=== PATIENT | female | born 1945 | race African-American/Black ===

== ENCOUNTER 2018-03-13 09:24 | Inpatient (IN) | payer MEDICARE, OTHER ==
[~2018-03-13] VITALS: Ht 170.2 cm; Wt 181.4 kg
--- NOTE | 2018-03-13 09:48 | PHYS DOC ---
Past Medical History Past Medical History: Diabetes-Type II Additional Past Medical Histor: Diabetic neuropathy, fibromyalgia, morbid obesity Past Surgical History: Cholecystectomy Smoking: Cigarettes (The patient is a nonsmoker.) Adult General HPI HPI Patient is a 72-year-old female, who presents to the emergency department via EMS. She states that last night she had some dark stools, and again this morning. She also reports some discomfort with urination. She states that she was seen by her PCPs office yesterday and started on an unknown antibiotic for urinary tract infection. She reports some generalized abdominal discomfort. She denies any chest pain or shortness of breath. She has chronic mobility issues secondary to morbid obesity, she also has a history of CHF. She denies any new shortness of breath or any new chest pain. She denies any dizziness or lightheadedness. She takes aspirin, but no other anticoagulants. There are no alleviating, or exacerbating factors to her symptoms. Review of Systems Review of Systems Constitutional: Denies fever or chills [] Eyes: Denies change in visual acuity, redness, or eye pain [] HENT: Denies nasal congestion or sore throat [] Respiratory: Denies cough or shortness of breath [] Cardiovascular: The patient denies any shortness of breath, chest pain, palpitations, or orthopnea [] GI: Denies nausea, vomiting, grossly bloody stools or diarrhea [] : Denies hematuria. Reports dysuria. [] Musculoskeletal: Denies any new back pain or new joint pain. [] Integument: Denies rash or skin lesions [] Neurologic: Denies headache, focal weakness or sensory changes [] Endocrine: Denies polyuria or polydipsia [] All other systems were reviewed and found to be within normal limits, except as documented in this note. Current Medications Current Medications Current Medications Medications (Trade) Dose Ordered Sig/Carin Start Time Stop Time Status Last Admin Dose Admin Magnesium Sulfate 50 ml @ 25 mls/hr 1X ONCE 03/13/18 12:00 03/13/18 13:59 DC Potassium Chloride/Water 50 ml @ 25 mls/hr Q2H 03/13/18 14:00 03/13/18 17:59 Potassium Chloride (Klor-Con) 40 meq 1X ONCE 03/13/18 12:00 03/13/18 12:03 DC Allergies Allergies Allergies Coded Allergies Type Severity Reaction Last Updated Verified Iodinated Contrast- Oral and IV Dye Allergy Intermediate 03/13/18 Yes Latex, Natural Rubber Allergy Intermediate ITCHING/REDNESS 03/13/18 Yes Physical Exam Physical Exam PHYSICAL EXAM: CONSTITUTIONAL: Well developed, well nourished HEAD: normocephalic, atraumatic EENT: PERRL, EOMI. Conjunctivae normal color, sclerae non-icteric; moist mucous membranes. NECK: Supple, non-tender; no meningismus. LUNGS: Lungs CTA, breathing even and unlabored. Normal air movement. HEART: Regular rate and rhythm, no murmur CHEST: No deformity; non-tender ABDOMEN: The abdomen is soft, there is diffuse tenderness to palpation to the upper abdomen. The lower abdomen is relatively nontender, normal bowel sounds are present. The exam is significantly limited secondary to patient's abdominal girth., no masses or bruits. EXTREM: Normal ROM; no deformity, no calf tenderness. Normal pulses palpable in all extremities. There is bilateral 2+ pitting pedal edema. SKIN: No rash; no diaphoresis NEURO: Alert; normal speech and cognition; CN's grossly intact; strength grossly intact without focal deficit. BACK: No CVA TTP. RECTAL EXAM: There is brown stool present in the rectal vault.. Current Patient Data Vital Signs Vital Signs Date Time Temp Pulse Resp B/P (MAP) Pulse Ox O2 Delivery O2 Flow Rate FiO2 03/13/18 09:24 98.3 65 15 123/71 (88) 99 Nasal Cannula 2.0 98.3 Lab Values Laboratory Tests Test 03/13/18 09:40 03/13/18 10:10 03/13/18 11:00 Stool Occult Blood Negative (NEG) Urine Collection Type U cath Urine Color Yellow Urine Clarity Clear Urine pH 7.0 Urine Specific [place] 1.010 Urine Protein Negative mg/dL (NEG-TRACE) Urine Glucose (UA) 100 mg/dL (NEG) Urine Ketones (Stick) Negative mg/dL (NEG) Urine Blood Negative (NEG) Urine Nitrite Negative (NEG) Urine Bilirubin Negative (NEG) Urine Urobilinogen Dipstick 0.2 mg/dL (0.2 mg/dL) Urine Leukocyte Esterase Negative (NEG) Urine RBC Rare /HPF (0-2) Urine WBC 1-4 /HPF (0-4) Urine Squamous Epithelial Cells Many /LPF Urine Renal Epithelial Cells Occ /LPF Urine Bacteria Many /HPF (0-FEW) Urine Mucus Slight /LPF White Blood Count 5.0 x10^3/uL (4.0-11.0) Red Blood Count 3.99 x10^6/uL (3.50-5.40) Hemoglobin 10.7 g/dL (12.0-15.5) L Hematocrit 33.0 % (36.0-47.0) L Mean Corpuscular Volume 83 fL (79-100) Mean Corpuscular Hemoglobin 27 pg (25-35) Mean Corpuscular Hemoglobin Concent 32 g/dL (31-37) Red Cell Distribution Width 16.8 % (11.5-14.5) H Platelet Count 231 x10^3/uL (140-400) Neutrophils (%) (Auto) 79 % (31-73) H Lymphocytes (%) (Auto) 13 % (24-48) L Monocytes (%) (Auto) 6 % (0-9) Eosinophils (%) (Auto) 1 % (0-3) Basophils (%) (Auto) 1 % (0-3) Neutrophils # (Auto) 4.0 x10^3uL (1.8-7.7) Lymphocytes # (Auto) 0.7 x10^3/uL (1.0-4.8) L Monocytes # (Auto) 0.3 x10^3/uL (0.0-1.1) Eosinophils # (Auto) 0.0 x10^3/uL (0.0-0.7) Basophils # (Auto) 0.0 x10^3/uL (0.0-0.2) Prothrombin Time 13.9 SEC (11.7-14.0) Prothrombin Time INR 1.1 (0.8-1.1) PTT 30 SEC (24-38) Sodium Level 140 mmol/L (136-145) Potassium Level 2.7 mmol/L (3.5-5.1) *L Chloride Level 98 mmol/L (98-107) Carbon Dioxide Level 35 mmol/L (21-32) H Anion Gap 7 (6-14) Blood Urea Nitrogen 9 mg/dL (7-20) Creatinine 1.2 mg/dL (0.6-1.0) H Estimated GFR (Cockcroft-Gault) 44.2 BUN/Creatinine Ratio 8 (6-20) Glucose Level 161 mg/dL (70-99) H Calcium Level 9.3 mg/dL (8.5-10.1) Magnesium Level 1.5 mg/dL (1.8-2.4) L Total Bilirubin 0.3 mg/dL (0.2-1.0) Aspartate Amino Transferase (AST) 26 U/L (15-37) Alanine Aminotransferase (ALT) 20 U/L (14-59) Alkaline Phosphatase 77 U/L (46-116) Creatine Kinase 1125 U/L (26-192) H Creatine Kinase MB (Mass) 2.6 ng/mL (0.0-3.6) Creatine Kinase MB Relative Index 0.2 % (0-4) Troponin I Quantitative < 0.017 ng/mL (0.000-0.055) CG-Bqd-R-Type Natriuretic Peptide 775 pg/mL (0-124) H Total Protein 8.5 g/dL (6.4-8.2) H Albumin 3.6 g/dL (3.4-5.0) Albumin/Globulin Ratio 0.7 (1.0-1.7) L Lipase 95 U/L (73-393) Laboratory Tests 03/13/18 11:00 Laboratory Tests 03/13/18 11:00 EKG EKG [Normal sinus rhythm at a rate of 73 bpm with occasional APCs, left axis deviation, normal intervals. There are no acute ischemic ST/T changes.] Radiology/Procedures Radiology/Procedures [PROCEDURE: PORTABLE CHEST 1V Exam: AP portable chest History: Congestive heart failure. Comparison: July 27, 2011. Findings: The heart and mediastinal structures are within normal limits for size. Lungs are without infiltrate. No pleural effusion or pneumothorax is identified. Mild bilateral shoulder degeneration is seen. Impression: 1. No acute cardiopulmonary process.] PROCEDURE: CT ABDOMEN PELVIS WO CONTRAST EXAM: CT Abdomen and Pelvis without IV contrast CLINICAL HISTORY: Abdominal pain COMPARISON: none TECHNIQUE: Helical CT of the abdomen and pelvis without intravenous contrast. Axial, coronal and sagittal reformatted images were generated. PQRS compliance statement - One or more of the following individualized dose reduction techniques were utilized for this study: 1. Automated exposure control 2. Adjustment of the mA and/or kV according to patient size 3. Use of iterative reconstruction technique FINDINGS: Lack of intravenous contrast limits evaluation of solid organs, vasculature, and lymph nodes. Streak artifact from the patient's arms results in limited evaluation of the abdomen and pelvis. Lower chest: Dependent opacities likely scarring/atelectasis. No pleural effusion or pneumothorax. Heart is not enlarged. No pericardial effusion. Abdomen and Pelvis: No focal liver lesion. Liver is enlarged measuring approximately 19.8 cm in length.Cholecystectomy clips are seen. No biliary ductal dilatation. Spleen is unremarkable. Adrenal glands are normal. Pancreas is unremarkable. There are 2 4 mm nonobstructing right interpolar renal calculi. No left renal calculi. No hydronephrosis. Mild colonic stool content. Appendix is normal. Colonic diverticula are seen most prominent within the sigmoid colon. No evidence for acute diverticulitis. No evidence for bowel obstruction. No abdominal or pelvic ascites. No abdominal or pelvic lymphadenopathy by size criteria, although several prominent external iliac chain lymph nodes are seen measuring up to 8 mm in short axis. The partially distended bladder is grossly unremarkable. Changes of rectus diastases are seen with fatty atrophy of the ventral abdominal muscles. Atherosclerotic calcifications of aorta are seen. Bones: Degenerative changes of the spine are seen. There is approximately 50% height loss of the T12 vertebral body, age-indeterminate. Prominent Schmorl's node is also seen in the superior endplate of T10. Severe disc height loss with endplate sclerosis and cystic change L4-5 and L5-S1. Vacuum phenomenon is seen at L4-5. SI joint degenerative changes are seen. IMPRESSION: 1. Nonobstructing right interpolar renal calculi measuring 4 mm. 2. 50% height loss of the T12 vertebral body, age-indeterminate compression fracture. 3. Multilevel degenerative changes of spine are partially profiled. 4. Prominent pelvic lymph nodes measuring up to 8 mm short axis, nonspecific. 5. Appendix is normal. 6. Hepatomegaly Course & Med Decision Making Course & Med Decision Making Pertinent Labs and Imaging studies reviewed. (See chart for details) [2:00 PM:The patient's condition remains stable. I spoke with the hospitalist , who accepted the patient to the hospital for further evaluation and treatment. ] [place] Disclaimer Dragon Disclaimer This electronic medical record was generated, in whole or in part, using a voice recognition dictation system. Departure Departure Impression: Primary Impression: Hypokalemia Additional Impressions: Abdominal pain Anemia Morbid obesity Disposition: 09 ADMITTED INPATIENT Admitting Physician: Fullbright, Armani Condition: STABLE Problem Qualifiers KIRAN KOEHLER MD Mar 13, 2018 09:48
--- NOTE | 2018-03-13 09:57 | EKG ---
[facility] [address] [place] [address] Test Date: 2018-03-13 Test Time: 09:31:36 Pat Name: DULCE OROSCO Department: Room: Gender: F Branch Examiner: : 1945 Requested By: KIRAN KOEHLER Order Number: [id number] Reading MD: Mariano Monson MD Measurements Intervals [place] Rate: 73 P: 46 ND: 158 QRS: -27 QRSD: 102 T: 142 QT: 480 QTc: 533 Interpretive Statements SINUS RHYTHM YOVANI-SEPTAL INFARCT POSSIBLE PAC'S. NON-SPECIFIC ST/T CHANGES Electronically Signed On 03-15-2018 9:40:19 CDT by Mariano Monson MD
[2018-03-13 10:25] LABS: FECAL OB PT NEGATIVE (NEG)
[2018-03-13 10:34] LABS: BILIRUBIN,URINE NEGATIVE (NEG); CLARITY,URINE CLEAR; COLOR,URINE YELLOW; NITRITE,URINE NEGATIVE (NEG); PROTEIN,URINE NEGATIVE (NEG-TRACE); UROBILINOGEN,URINE 0.2 mg/dL (0.2 mg/dL)
[2018-03-13 10:41] LABS: BACTERIA,URINE MANY /HPF (0-FEW); SQUAMOUS EPITHELIAL CELL,UR MANY /LPF
[2018-03-13 10:42] LABS: RBC,URINE RARE /HPF (0-2)
--- NOTE | 2018-03-13 11:20 | RAD ---
Exam: AP portable chest History: Congestive heart failure. Comparison: July 27, 2011. Findings: The heart and mediastinal structures are within normal limits for size. Lungs are without infiltrate. No pleural effusion or pneumothorax is identified. Mild bilateral shoulder degeneration is seen. Impression: 1. No acute cardiopulmonary process. Electronically signed by: Elton Awad MD (03/13/2018 11:16 AM) [facility]
[2018-03-13 11:21] LABS: BASO % 1 % (0-3); EOS % 1 % (0-3); HEMOGLOBIN 10.7 g/dL (12.0-15.5); LYMPH # 0.7 x10^3/uL (1.0-4.8); LYMPH % 13 % (24-48); MEAN CORPUSCULAR HEMOGLOBIN 27 pg (25-35); MEAN CORPUSCULAR HGB CONC 32 g/dL (31-37); MEAN CORPUSCULAR VOLUME 83 fL (79-100); MONO # 0.3 x10^3/uL (0.0-1.1); MONO % 6 % (0-9); NEUT % 79 % (31-73); PLATELET COUNT 231 x10^3/uL (140-400); RED BLOOD COUNT 3.99 x10^6/uL (3.50-5.40); RED CELL DISTRIBUTION WIDTH 16.8 % (11.5-14.5)
[2018-03-13 11:27] LABS: PROTHROMBIN TIME PATIENT 13.9 SEC (11.7-14.0)
[2018-03-13 11:30] LABS: ALBUMIN 3.6 g/dL (3.4-5.0); ALBUMIN/GLOBULIN RATIO 0.7 (1.0-1.7); CALCIUM 9.3 mg/dL (8.5-10.1); CREATININE 1.2 mg/dL (0.6-1.0); GFR 44.2; MAGNESIUM 1.5 mg/dL (1.8-2.4); TOTAL BILIRUBIN 0.3 mg/dL (0.2-1.0); TOTAL PROTEIN 8.5 g/dL (6.4-8.2)
[2018-03-13 11:34] LABS: POTASSIUM 2.7 mmol/L (3.5-5.1)
[2018-03-13] MEDS ORDERED: MAGNESIUM SULFATE 2GM 50 ML IV ONE (12:00)
[2018-03-13] MEDS ORDERED: POTASSIUM CHLORIDE 20 MEQ TABLET.ER. PO ONE (12:00)
--- NOTE | 2018-03-13 12:58 | RAD ---
EXAM: CT Abdomen and Pelvis without IV contrast CLINICAL HISTORY: Abdominal pain COMPARISON: none TECHNIQUE: Helical CT of the abdomen and pelvis without intravenous contrast. Axial, coronal and sagittal reformatted images were generated. PQRS compliance statement - One or more of the following individualized dose reduction techniques were utilized for this study: 1. Automated exposure control 2. Adjustment of the mA and/or kV according to patient size 3. Use of iterative reconstruction technique FINDINGS: Lack of intravenous contrast limits evaluation of solid organs, vasculature, and lymph nodes. Streak artifact from the patient's arms results in limited evaluation of the abdomen and pelvis. Lower chest: Dependent opacities likely scarring/atelectasis. No pleural effusion or pneumothorax. Heart is not enlarged. No pericardial effusion. Abdomen and Pelvis: No focal liver lesion. Liver is enlarged measuring approximately 19.8 cm in length.Cholecystectomy clips are seen. No biliary ductal dilatation. Spleen is unremarkable. Adrenal glands are normal. Pancreas is unremarkable. There are 2 4 mm nonobstructing right interpolar renal calculi. No left renal calculi. No hydronephrosis. Mild colonic stool content. Appendix is normal. Colonic diverticula are seen most prominent within the sigmoid colon. No evidence for acute diverticulitis. No evidence for bowel obstruction. No abdominal or pelvic ascites. No abdominal or pelvic lymphadenopathy by size criteria, although several prominent external iliac chain lymph nodes are seen measuring up to 8 mm in short axis. The partially distended bladder is grossly unremarkable. Changes of rectus diastases are seen with fatty atrophy of the ventral abdominal muscles. Atherosclerotic calcifications of aorta are seen. Bones: Degenerative changes of the spine are seen. There is approximately 50% height loss of the T12 vertebral body, age-indeterminate. Prominent Schmorl's node is also seen in the superior endplate of T10. Severe disc height loss with endplate sclerosis and cystic change L4-5 and L5-S1. Vacuum phenomenon is seen at L4-5. SI joint degenerative changes are seen. IMPRESSION: 1. Nonobstructing right interpolar renal calculi measuring 4 mm. 2. 50% height loss of the T12 vertebral body, age-indeterminate compression fracture. 3. Multilevel degenerative changes of spine are partially profiled. 4. Prominent pelvic lymph nodes measuring up to 8 mm short axis, nonspecific. 5. Appendix is normal. 6. Hepatomegaly Electronically signed by: Jay May MD (03/13/2018 12:32 PM) [facility]
[2018-03-13] MEDS ORDERED: FLUO20TA11 PO (15:49)
[2018-03-13] MEDS ORDERED: FURO40TA4 PO (15:49)
[2018-03-13] MEDS ORDERED: ALLO300T PO (15:49)
[2018-03-13] MEDS ORDERED: INSU100I11 SQ (15:49)
[2018-03-13] MEDS ORDERED: CARV25TA2 PO (15:49)
[2018-03-13] MEDS ORDERED: SULF1TAB24 PO (15:49)
[2018-03-13] MEDS ORDERED: AMLO10TA6 PO (15:49)
[2018-03-13] MEDS ORDERED: LIDOCAINE WITH 8.4% SOD BICARB 3 ML DISP.SYRIN. ONE (15:54)
[2018-03-13] MEDS ORDERED: LIDOCAINE WITH 8.4% SOD BICARB 3 ML DISP.SYRIN. INJ ONE (16:15)
[2018-03-13] MEDS ORDERED: INSU100V13 SQ (16:29)
[2018-03-13] MEDS ORDERED: ASPI81TA50 PO (16:29)
[2018-03-13] MEDS ORDERED: MAGN400C PO (16:29)
[2018-03-13] MEDS ORDERED: POTA20TA82 PO (16:29)
[2018-03-13] MEDS ORDERED: AMIT75TA PO (16:29)
--- NOTE | 2018-03-13 16:39 | PDOC1 ---
History and Physical Date of Admission Date of Admission DATE: 03/13/18 TIME: 16:39 Identification/Chief Complaint Chief Complaint seen in er 72-year-old female, via EMS. She states that last night she had some dark stools, and again this morning. discomfort with urination. She states that she was seen by her PCPs office yesterday and started on bactrim antibiotic for urinary tract infection. reports some generalized abdominal discomfort. She denies any chest pain or shortness of breath. no known hx PUD chronic mobility issues secondary to morbid obesity, she also has history of CHF. she has been quite weak, k in er is 2.7 Past Medical History Past Medical History Past Medical History: Diabetes-Type II Additional Past Medical Histor: Diabetic neuropathy, fibromyalgia, morbid obesity Past Surgical History: Cholecystectomy Smoking: Cigarettes family hx obesity GI: GERD Endocrine: Diabetes Past Surgical History Past Surgical History: Other Family History Family History: High Cholestrol, Hypertension Family History: Parent Social History Smoke: <1 pack per day ALCOHOL: none Drugs: None Current Problem List Problem List Problems Medical Problems: (1) Abdominal pain Status: Acute (2) Anemia Status: Acute (3) Hypokalemia Status: Acute (4) Morbid obesity Status: Acute Current Medications Current Medications Current Medications Magnesium Sulfate 50 ml @ 25 mls/hr 1X ONCE IV ; Start 03/13/18 at 12:00; Stop 03/13/18 at 13:59; Status DC Potassium Chloride (Klor-Con) 40 meq 1X ONCE PO Last administered on at 14:17; Start 03/13/18 at 12:00; Stop 03/13/18 at 12:03; Status DC Potassium Chloride/Water 50 ml @ 25 mls/hr Q2H IV ; Start 03/13/18 at 14:00; Stop 03/13/18 at 17:59 Lidocaine/Sodium Bicarbonate (Buffered Lidocaine 1%) 3 ml STK-MED ONCE .ROUTE ; Start 03/13/18 at 15:54; Stop 03/13/18 at 15:55; Status DC Lidocaine/Sodium Bicarbonate (Buffered Lidocaine 1%) 3 ml 1X ONCE INJ Last administered on 03/13/18at 16:15; Start 03/13/18 at 16:15; Stop 03/13/18 at 16 :17; Status DC Active Scripts Active Reported Potassium Chloride 20 Meq Tablet.er 20 Meq PO DAILY Magnesium (Magnesium Oxide) 400 Mg Capsule 1 Cap PO DAILY Amitriptyline Hcl 75 Mg Tablet 1 Tab PO QHS Levemir (Insulin Detemir) 100 Unit/1 Ml Vial 30 Unit SQ HS Aspir-Low (Aspirin) 81 Mg Tablet.dr 1 Tab PO DAILY Carvedilol 25 Mg Tablet 1 Tab PO BID Humalog (Insulin Lispro) 100 Unit/1 Ml Insuln.pen 10 Unit SQ TIDWMEALS Allopurinol 300 Mg Tablet 1 Tab PO DAILY Furosemide 40 Mg Tablet 1 Tab PO DAILY Fluoxetine Hcl 20 Mg Tablet 1 Tab PO DAILY Amlodipine Besylate 10 Mg Tablet 10 Mg PO DAILY Bactrim Ds Tablet (Sulfamethoxazole/Trimethoprim) 1 Each Tablet 1 Tab PO DAILY Allergies Allergies: Coded Allergies: Iodinated Contrast- Oral and IV Dye (Verified Allergy, Intermediate, 03/13) PATIENT DOES NOT REMEMBER WHAT REACTION SHE HAS. Latex, Natural Rubber (Verified Allergy, Intermediate, ITCHING/REDNESS, ) ROS Review of System Review of Systems Review of Systems Constitutional: Denies fever or chills [] Eyes: Denies change in visual acuity, redness, or eye pain [] HENT: Denies nasal congestion or sore throat [] Respiratory: Denies cough or shortness of breath [] Cardiovascular: The patient denies any shortness of breath, chest pain, palpitations, or orthopnea [] GI: black stool, no grossly bloody stools or diarrhea [] : Denies hematuria. Reports dysuria. [] Musculoskeletal: Denies any new back pain or new joint pain. [] Integument: Denies rash or skin lesions [] Neurologic: Denies headache, focal weakness or sensory changes [] Endocrine: Denies polyuria or polydipsia [] 14 pt systems were reviewed and found to be within normal limits, except as documented Musculoskeletal: Yes Pain In: (BACK) Physical Exam Physical Exam Physical Exam Physical Exam PHYSICAL EXAM: CONSTITUTIONAL: Well developed, well nourished HEAD: normocephalic, atraumatic EENT: PERRL, EOMI. Conjunctivae normal color, sclerae non-icteric; moist mucous membranes. NECK: Supple, non-tender; no meningismus. LUNGS: Lungs CTA, breathing even and unlabored. Normal air movement. HEART: Regular rate and rhythm, no murmur CHEST: No deformity; non-tender ABDOMEN: The abdomen is soft, there is diffuse tenderness to palpation to the upper abdomen. The lower abdomen is relatively nontender, normal bowel sounds are present. The exam is significantly limited secondary to patient's abdominal girth., no masses or bruits. EXTREM: Normal ROM; no deformity, no calf tenderness. Normal pulses palpable in all extremities. There is bilateral 2+ pitting pedal edema. SKIN: No rash; no diaphoresis NEURO: Alert; normal speech and cognition; CN's grossly intact; strength grossly intact without focal deficit. BACK: No CVA TTP. RECTAL EXAM: There is brown stool present in the rectal vault.. PQRS compliance statement - One or more of the following individualized dose reduction techniques were utilized for this study: 1. Automated exposure control 2. Adjustment of the mA and/or kV according to patient size 3. Use of iterative reconstruction technique FINDINGS: Lack of intravenous contrast limits evaluation of solid organs, vasculature, and lymph nodes. Streak artifact from the patient's arms results in limited evaluation of the abdomen and pelvis. Lower chest: Dependent opacities likely scarring/atelectasis. No pleural effusion or pneumothorax. Heart is not enlarged. No pericardial effusion. Abdomen and Pelvis: No focal liver lesion. Liver is enlarged measuring approximately 19.8 cm in length.Cholecystectomy clips are seen. No biliary ductal dilatation. Spleen is unremarkable. Adrenal glands are normal. Pancreas is unremarkable. There are 2 4 mm nonobstructing right interpolar renal calculi. No left renal calculi. No hydronephrosis. Mild colonic stool content. Appendix is normal. Colonic diverticula are seen most prominent within the sigmoid colon. No evidence for acute diverticulitis. No evidence for bowel obstruction. No abdominal or pelvic ascites. No abdominal or pelvic lymphadenopathy by size criteria, although several prominent external iliac chain lymph nodes are seen measuring up to 8 mm in short axis. The partially distended bladder is grossly unremarkable. Changes of rectus diastases are seen with fatty atrophy of the ventral abdominal muscles. Atherosclerotic calcifications of aorta are seen. Bones: Degenerative changes of the spine are seen. There is approximately 50% height loss of the T12 vertebral body, age-indeterminate. Prominent Schmorl's node is also seen in the superior endplate of T10. Severe disc height loss with endplate sclerosis and cystic change L4-5 and L5-S1. Vacuum phenomenon is seen at L4-5. SI joint degenerative changes are seen. IMPRESSION: 1. Nonobstructing right interpolar renal calculi measuring 4 mm. 2. 50% height loss of the T12 vertebral body, age-indeterminate compression fracture. 3. Multilevel degenerative changes of spine are partially profiled. 4. Prominent pelvic lymph nodes measuring up to 8 mm short axis, nonspecific. 5. Appendix is normal. 6. Hepatomegaly Electronically signed by: Jay May MD (03/13/2018 12:32 PM) [facility] General: Oriented X3, Cooperative, mild distress HEENT: Atraumatic, PERRLA Lungs: Clear to auscultation Heart: S1S2, no jug vein distention Breasts: Not examined Abdomen: Normal bowel sounds, Soft Rectal Exam: deferred PELVIC: Examination not indicated Extremities: No cyanosis Neuro: Normal speech, Normal tone, Cranial nerves 3-12 NL Psych/Mental Status: Mental status NL, Mood NL Vitals Vitals Vital Signs Date Time Temp Pulse Resp B/P (MAP) Pulse Ox O2 Delivery O2 Flow Rate FiO2 03/13/18 15:00 84 30 176/90 (118) 100 Nasal Cannula 2.0 03/13/18 09:24 98.3 98.3 Labs Labs Laboratory Tests Test 03/13/18 09:40 03/13/18 10:10 03/13/18 11:00 Stool Occult Blood Negative (NEG) Urine Collection Type U cath Urine Color Yellow Urine Clarity Clear Urine pH 7.0 Urine Specific [place] 1.010 Urine Protein Negative mg/dL (NEG-TRACE) Urine Glucose (UA) 100 mg/dL (NEG) Urine Ketones (Stick) Negative mg/dL (NEG) Urine Blood Negative (NEG) Urine Nitrite Negative (NEG) Urine Bilirubin Negative (NEG) Urine Urobilinogen Dipstick 0.2 mg/dL (0.2 mg/dL) Urine Leukocyte Esterase Negative (NEG) Urine RBC Rare /HPF (0-2) Urine WBC 1-4 /HPF (0-4) Urine Squamous Epithelial Cells Many /LPF Urine Renal Epithelial Cells Occ /LPF Urine Bacteria Many /HPF (0-FEW) Urine Mucus Slight /LPF White Blood Count 5.0 x10^3/uL (4.0-11.0) Red Blood Count 3.99 x10^6/uL (3.50-5.40) Hemoglobin 10.7 g/dL (12.0-15.5) Hematocrit 33.0 % (36.0-47.0) Mean Corpuscular Volume 83 fL (79-100) Mean Corpuscular Hemoglobin 27 pg (25-35) Mean Corpuscular Hemoglobin Concent 32 g/dL (31-37) Red Cell Distribution Width 16.8 % (11.5-14.5) Platelet Count 231 x10^3/uL (140-400) Neutrophils (%) (Auto) 79 % (31-73) Lymphocytes (%) (Auto) 13 % (24-48) Monocytes (%) (Auto) 6 % (0-9) Eosinophils (%) (Auto) 1 % (0-3) Basophils (%) (Auto) 1 % (0-3) Neutrophils # (Auto) 4.0 x10^3uL (1.8-7.7) Lymphocytes # (Auto) 0.7 x10^3/uL (1.0-4.8) Monocytes # (Auto) 0.3 x10^3/uL (0.0-1.1) Eosinophils # (Auto) 0.0 x10^3/uL (0.0-0.7) Basophils # (Auto) 0.0 x10^3/uL (0.0-0.2) Prothrombin Time 13.9 SEC (11.7-14.0) Prothromb Time International Ratio 1.1 (0.8-1.1) Activated Partial Thromboplast Time 30 SEC (24-38) Sodium Level 140 mmol/L (136-145) Potassium Level 2.7 mmol/L (3.5-5.1) Chloride Level 98 mmol/L (98-107) Carbon Dioxide Level 35 mmol/L (21-32) Anion Gap 7 (6-14) Blood Urea Nitrogen 9 mg/dL (7-20) Creatinine 1.2 mg/dL (0.6-1.0) Estimated GFR (Cockcroft-Gault) 44.2 BUN/Creatinine Ratio 8 (6-20) Glucose Level 161 mg/dL (70-99) Calcium Level 9.3 mg/dL (8.5-10.1) Magnesium Level 1.5 mg/dL (1.8-2.4) Total Bilirubin 0.3 mg/dL (0.2-1.0) Aspartate Amino Transf (AST/SGOT) 26 U/L (15-37) Alanine Aminotransferase (ALT/SGPT) 20 U/L (14-59) Alkaline Phosphatase 77 U/L (46-116) Creatine Kinase 1125 U/L (26-192) Creatine Kinase MB (Mass) 2.6 ng/mL (0.0-3.6) Creatine Kinase MB Relative Index 0.2 % (0-4) Troponin I Quantitative < 0.017 ng/mL (0.000-0.055) ZX-[id number]-I-Type Natriuretic Peptide 775 pg/mL (0-124) Total Protein 8.5 g/dL (6.4-8.2) Albumin 3.6 g/dL (3.4-5.0) Albumin/Globulin Ratio 0.7 (1.0-1.7) Lipase 95 U/L (73-393) Laboratory Tests Test 03/13/18 09:40 03/13/18 10:10 03/13/18 11:00 Stool Occult Blood Negative (NEG) Urine Collection Type U cath Urine Color Yellow Urine Clarity Clear Urine pH 7.0 Urine Specific [place] 1.010 Urine Protein Negative mg/dL (NEG-TRACE) Urine Glucose (UA) 100 mg/dL (NEG) Urine Ketones (Stick) Negative mg/dL (NEG) Urine Blood Negative (NEG) Urine Nitrite Negative (NEG) Urine Bilirubin Negative (NEG) Urine Urobilinogen Dipstick 0.2 mg/dL (0.2 mg/dL) Urine Leukocyte Esterase Negative (NEG) Urine RBC Rare /HPF (0-2) Urine WBC 1-4 /HPF (0-4) Urine Squamous Epithelial Cells Many /LPF Urine Renal Epithelial Cells Occ /LPF Urine Bacteria Many /HPF (0-FEW) Urine Mucus Slight /LPF White Blood Count 5.0 x10^3/uL (4.0-11.0) Red Blood Count 3.99 x10^6/uL (3.50-5.40) Hemoglobin 10.7 g/dL (12.0-15.5) Hematocrit 33.0 % (36.0-47.0) Mean Corpuscular Volume 83 fL (79-100) Mean Corpuscular Hemoglobin 27 pg (25-35) Mean Corpuscular Hemoglobin Concent 32 g/dL (31-37) Red Cell Distribution Width 16.8 % (11.5-14.5) Platelet Count 231 x10^3/uL (140-400) Neutrophils (%) (Auto) 79 % (31-73) Lymphocytes (%) (Auto) 13 % (24-48) Monocytes (%) (Auto) 6 % (0-9) Eosinophils (%) (Auto) 1 % (0-3) Basophils (%) (Auto) 1 % (0-3) Neutrophils # (Auto) 4.0 x10^3uL (1.8-7.7) Lymphocytes # (Auto) 0.7 x10^3/uL (1.0-4.8) Monocytes # (Auto) 0.3 x10^3/uL (0.0-1.1) Eosinophils # (Auto) 0.0 x10^3/uL (0.0-0.7) Basophils # (Auto) 0.0 x10^3/uL (0.0-0.2) Prothrombin Time 13.9 SEC (11.7-14.0) Prothromb Time International Ratio 1.1 (0.8-1.1) Activated Partial Thromboplast Time 30 SEC (24-38) Sodium Level 140 mmol/L (136-145) Potassium Level 2.7 mmol/L (3.5-5.1) Chloride Level 98 mmol/L (98-107) Carbon Dioxide Level 35 mmol/L (21-32) Anion Gap 7 (6-14) Blood Urea Nitrogen 9 mg/dL (7-20) Creatinine 1.2 mg/dL (0.6-1.0) Estimated GFR (Cockcroft-Gault) 44.2 BUN/Creatinine Ratio 8 (6-20) Glucose Level 161 mg/dL (70-99) Calcium Level 9.3 mg/dL (8.5-10.1) Magnesium Level 1.5 mg/dL (1.8-2.4) Total Bilirubin 0.3 mg/dL (0.2-1.0) Aspartate Amino Transf (AST/SGOT) 26 U/L (15-37) Alanine Aminotransferase (ALT/SGPT) 20 U/L (14-59) Alkaline Phosphatase 77 U/L (46-116) Creatine Kinase 1125 U/L (26-192) Creatine Kinase MB (Mass) 2.6 ng/mL (0.0-3.6) Creatine Kinase MB Relative Index 0.2 % (0-4) Troponin I Quantitative < 0.017 ng/mL (0.000-0.055) KC-Ytr-N-Type Natriuretic Peptide 775 pg/mL (0-124) Total Protein 8.5 g/dL (6.4-8.2) Albumin 3.6 g/dL (3.4-5.0) Albumin/Globulin Ratio 0.7 (1.0-1.7) Lipase 95 U/L (73-393) VTE Prophylaxis Ordered VTE Prophylaxis Devices: Yes VTE Pharmacological Prophylaxi: Yes Assessment/Plan Assessment/Plan IMPRESSION 1. EPIGASTRIC PAIN WITH DARK STOOLS 2. PUD SUSPECTED 3. UTI ON BACTRIM 4. MARKED HYPOKALEMIA 5. 50% height loss of the T12 vertebral body, age-indeterminate compression fracture. PLAN 1. NPO P MN 2.CONSULT GI 3. IV PROTONIX 4. SCD'S 5. IV K 6. FREQUENT LAB 7. CONSULT DR CINTRON 8. SQ LOVENOX DVT PROPHYLAXIS JEFFERSON VORA MD Mar 13, 2018 16:39
[2018-03-13 18:20] VITALS: BP 150/81
[2018-03-13 19:00] VITALS: BP 143/77
[2018-03-13] MEDS: CARVEDILOL 12.5 MG TABLET. PO SCH (19:30)
[2018-03-13] MEDS: HYDROcodone/APAP 5/325MG 1 TAB TABLET PO PRN (19:31)
[2018-03-13] MEDS: POTASSIUM CHLORIDE 20MEQ 50 ML IV SCH ×2 (19:38→22:03)
[2018-03-13] MEDS ORDERED: AMITRIPTYLINE HCL 25 MG TABLET. PO SCH (21:00)
[2018-03-13] MEDS: INSULIN GLARGINE 300 UNITS/3 ML INSULN.PEN. SQ SCH (22:39)
[2018-03-13 23:00] VITALS: BP 140/81
[2018-03-14] MEDS: HYDROcodone/APAP 5/325MG 1 TAB TABLET PO PRN ×5 (00:06→22:35)
[2018-03-14 03:00] VITALS: BP 128/81
[2018-03-14 06:45] LABS: BASO % 1 % (0-3); EOS # 0.1 x10^3/uL (0.0-0.7); EOS % 2 % (0-3); HEMATOCRIT 30.4 % (36.0-47.0); HEMOGLOBIN 10.3 g/dL (12.0-15.5); LYMPH % 22 % (24-48); MEAN CORPUSCULAR HEMOGLOBIN 28 pg (25-35); MEAN CORPUSCULAR HGB CONC 34 g/dL (31-37); MEAN CORPUSCULAR VOLUME 83 fL (79-100); MONO # 0.3 x10^3/uL (0.0-1.1); MONO % 7 % (0-9); NEUT # 3.1 x10^3uL (1.8-7.7); NEUT % 68 % (31-73); PLATELET COUNT 185 x10^3/uL (140-400); RED BLOOD COUNT 3.66 x10^6/uL (3.50-5.40); RED CELL DISTRIBUTION WIDTH 17.2 % (11.5-14.5); WHITE BLOOD COUNT 4.6 x10^3/uL (4.0-11.0)
[2018-03-14 07:00] VITALS: BP 150/85
[2018-03-14 07:14] LABS: ALBUMIN 3.1 g/dL (3.4-5.0); ALBUMIN/GLOBULIN RATIO 0.7 (1.0-1.7); CALCIUM 8.8 mg/dL (8.5-10.1); CREATININE 1.1 mg/dL (0.6-1.0); GFR 59.1; POTASSIUM 3.3 mmol/L (3.5-5.1); TOTAL BILIRUBIN 0.4 mg/dL (0.2-1.0); TOTAL PROTEIN 7.8 g/dL (6.4-8.2)
[2018-03-14] MEDS ORDERED: PANTOPRAZOLE IV PUSH 40 MG VIAL. IVP SCH (07:30)
[2018-03-14] MEDS: INSULIN LISPRO 300 UNITS/3 ML INSULN.PEN. SQ SCH ×3 (08:00→18:05)
[2018-03-14] MEDS: FUROSEMIDE 40 MG TABLET. PO SCH (09:00)
[2018-03-14] MEDS ORDERED: ALLOPURINOL 300 MG TABLET. PO SCH (09:00)
--- NOTE | 2018-03-14 09:04 | RAD ---
Procedure: Upper extremity PICC line placement Clinical Indication: 72-year-old requiring central venous access Sedation: Local anesthesia only was provided Antibiotics: None Fluoro Time: 0.4 minutes. Images: 1 Contrast: None Sterility: All elements of maximal sterile barrier technique including the use of a cap, mask, sterile gown, sterile gloves, large sterile sheet, appropriate hand hygiene, and 2% chlorhexidine for cutaneous antisepsis (or acceptable alternative antiseptic per current guidelines) were followed for this procedure. Consent: The procedure was explained in its entirety to the patient or the patients designated national sales representative by a member of the treatment team, including a discussion of the risks, benefits and commonly accepted alternatives to the procedure, as well as the expected consequences of no therapy whatsoever. Discussion of the risks included, but was not limited to, those that are most frequent and those that are rare but possibly severe or life-threatening, as well as the possibility of unforeseen complications. Technique and Findings: Following informed consent, the patient was prepped and draped in the usual sterile fashion. Ultrasound interrogation of the right arm revealed patency and compressibility of right basilic vein. A hard copy ultrasound image was recorded. 1% Lidocaine was used to achieve local anesthesia and a 21-gauge micropuncture needle was used to gain access to the targeted vein. The needle was exchanged over wire for a 5 [place] peel-away sheath which was used to deploy a PICC line under fluoroscopic guidance such that the distal tip resided at the cavoatrial junction. The catheter flushed and aspirated with ease and was sutured to the skin. Complications: No immediate Impression: 1. Ultrasound guided PICC line placement as described.
--- NOTE | 2018-03-14 09:09 | PDOC2 ---
GI CONSULT Reason For Consult: Abd pain, anemia HPI: HPI: 72 y/o female admitted through ER. Reports onset of loose black stools yesterday. She lives at home and she typically asks her aide to tell her what her stools look like. Associated w/ "head to toe" fibromyalgia pain (which might include some abdominal discomfort/"itching" around cholecystectomy scar) and some "anal canal" pain related to increased frequency of stools. H/o GERD improved w/ Tums PRN. Remote h/o "ulcer" - can't tell me how this was diagnosed but says she had an EGD at some w/ Dr. Brasher "to recheck it." Denies dysphagia. Some nausea w/o vomiting and decreased appetite for a few days. Started on an antibiotic for UTI earlier this week - that day she had appointments all day and didn't eat so she wouldn't have to use a public restroom. Has issues w/ urinary incontinence. Also, was constipated a couple weeks ago and used "the whole bit" - enemas, Miralax, stool softeners - since then has had "a little" trouble with incontinence of stool. Hard to say, but it seems her bowel pattern is irregular as a rule - "whenever, wherever." She attributes this in part to h/o cholecystectomy and dentition issues. Denies hematochezia. H/o C Diff x 2. Takes a multivitamin which she assumes contains iron. Takes ASA 81mg QD. I believe also uses hydrocodone for chronic pain related to arthritis and gout. Denies Pepto and NSAIDs. H/o IDDM - mentions glucose is sometimes in the 300s. Office records: EGD in 01/2004 for abdominal pain, pill dysphagia, nausea, GERD, and anemia by Dr. Florence was normal except for hiatal hernia. Empiric esophageal dilation was performed. CHONG test was positive for H. pylori - unclear if was treated due to insurance issues. Colonoscopy in 03/[address] Florence for anemia was normal except for internal hemorrhoids. Notes indicate h/o irregular bowel pattern and abd pain. Labs include Hgb 10.7 (now 10.3), RDW 17.2, fecal occult negative, normal plt and INR, BUN 6, and CK 1125. No past labs fro comparison. CT noted mild hepatomegaly, mild stool content, and diverticulosis. Kept NPO on IV PPI. PMH: PMH: HTN, CHF, asthma, SHANITA (no CPAP), GERD, hiatal hernia, diverticulosis, hemorrhoids, C Diff, uterine cancer, RA, OA, fibromyalgia, gout, nephrolithiasis , UTI, compression fracture cholecystectomy, tubal ligation, total hysterectomy w/ BSO, cataract removal FH: Family History: CVA, DM, Hypertension Social History: Smoke: Quit ALCOHOL: none Drugs: None ROS: GEN: Denies fevers, chills, sweats HEENT: Denies blurred vision, sore throat CV: Denies chest pain RESP: Denies shortness of air, cough GI: Per HPI : +urinary incontinence +recent UTI ENDO: Denies weight changes NEURO: Denies confusion, dizziness MSK: +chronic pain SKIN: Denies jaundice, pruritus Vitals: Vitals: Vital Signs Date Time Temp Pulse Resp B/P (MAP) Pulse Ox O2 Delivery O2 Flow Rate FiO2 03/14/18 08:33 Nasal Cannula 2.5 03/14/18 07:00 97.4 73 20 150/85 (106) 100 97.4 Labs: Labs: Laboratory Tests Test 03/13/18 09:40 03/13/18 10:10 03/13/18 11:00 03/13/18 22:15 Stool Occult Blood Negative (NEG) Urine Collection Type U cath Urine Color Yellow Urine Clarity Clear Urine pH 7.0 Urine Specific Horatio 1.010 Urine Protein Negative mg/dL (NEG-TRACE) Urine Glucose (UA) 100 mg/dL (NEG) Urine Ketones (Stick) Negative mg/dL (NEG) Urine Blood Negative (NEG) Urine Nitrite Negative (NEG) Urine Bilirubin Negative (NEG) Urine Urobilinogen Dipstick 0.2 mg/dL (0.2 mg/dL) Urine Leukocyte Esterase Negative (NEG) Urine RBC Rare /HPF (0-2) Urine WBC 1-4 /HPF (0-4) Urine Squamous Epithelial Cells Many /LPF Urine Renal Epithelial Cells Occ /LPF Urine Bacteria Many /HPF (0-FEW) Urine Mucus Slight /LPF White Blood Count 5.0 x10^3/uL (4.0-11.0) Red Blood Count 3.99 x10^6/uL (3.50-5.40) Hemoglobin 10.7 g/dL (12.0-15.5) Hematocrit 33.0 % (36.0-47.0) Mean Corpuscular Volume 83 fL (79-100) Mean Corpuscular Hemoglobin 27 pg (25-35) Mean Corpuscular Hemoglobin Concent 32 g/dL (31-37) Red Cell Distribution Width 16.8 % (11.5-14.5) Platelet Count 231 x10^3/uL (140-400) Neutrophils (%) (Auto) 79 % (31-73) Lymphocytes (%) (Auto) 13 % (24-48) Monocytes (%) (Auto) 6 % (0-9) Eosinophils (%) (Auto) 1 % (0-3) Basophils (%) (Auto) 1 % (0-3) Neutrophils # (Auto) 4.0 x10^3uL (1.8-7.7) Lymphocytes # (Auto) 0.7 x10^3/uL (1.0-4.8) Monocytes # (Auto) 0.3 x10^3/uL (0.0-1.1) Eosinophils # (Auto) 0.0 x10^3/uL (0.0-0.7) Basophils # (Auto) 0.0 x10^3/uL (0.0-0.2) Prothrombin Time 13.9 SEC (11.7-14.0) Prothromb Time International Ratio 1.1 (0.8-1.1) Activated Partial Thromboplast Time 30 SEC (24-38) Sodium Level 140 mmol/L (136-145) Potassium Level 2.7 mmol/L (3.5-5.1) Chloride Level 98 mmol/L (98-107) Carbon Dioxide Level 35 mmol/L (21-32) Anion Gap 7 (6-14) Blood Urea Nitrogen 9 mg/dL (7-20) Creatinine 1.2 mg/dL (0.6-1.0) Estimated GFR (Cockcroft-Gault) 44.2 BUN/Creatinine Ratio 8 (6-20) Glucose Level 161 mg/dL (70-99) Calcium Level 9.3 mg/dL (8.5-10.1) Magnesium Level 1.5 mg/dL (1.8-2.4) Total Bilirubin 0.3 mg/dL (0.2-1.0) Aspartate Amino Transf (AST/SGOT) 26 U/L (15-37) Alanine Aminotransferase (ALT/SGPT) 20 U/L (14-59) Alkaline Phosphatase 77 U/L (46-116) Creatine Kinase 1125 U/L (26-192) Creatine Kinase MB (Mass) 2.6 ng/mL (0.0-3.6) Creatine Kinase MB Relative Index 0.2 % (0-4) Troponin I Quantitative < 0.017 ng/mL (0.000-0.055) WJ-Dya-D-Type Natriuretic Peptide 775 pg/mL (0-124) Total Protein 8.5 g/dL (6.4-8.2) Albumin 3.6 g/dL (3.4-5.0) Albumin/Globulin Ratio 0.7 (1.0-1.7) Lipase 95 U/L (73-393) Free Thyroxine 1.04 ng/dL (0.76-1.46) Glucose (Fingerstick) 216 mg/dL (70-99) Test 03/14/18 06:25 03/14/18 07:36 White Blood Count 4.6 x10^3/uL (4.0-11.0) Red Blood Count 3.66 x10^6/uL (3.50-5.40) Hemoglobin 10.3 g/dL (12.0-15.5) Hematocrit 30.4 % (36.0-47.0) Mean Corpuscular Volume 83 fL (79-100) Mean Corpuscular Hemoglobin 28 pg (25-35) Mean Corpuscular Hemoglobin Concent 34 g/dL (31-37) Red Cell Distribution Width 17.2 % (11.5-14.5) Platelet Count 185 x10^3/uL (140-400) Neutrophils (%) (Auto) 68 % (31-73) Lymphocytes (%) (Auto) 22 % (24-48) Monocytes (%) (Auto) 7 % (0-9) Eosinophils (%) (Auto) 2 % (0-3) Basophils (%) (Auto) 1 % (0-3) Neutrophils # (Auto) 3.1 x10^3uL (1.8-7.7) Lymphocytes # (Auto) 1.0 x10^3/uL (1.0-4.8) Monocytes # (Auto) 0.3 x10^3/uL (0.0-1.1) Eosinophils # (Auto) 0.1 x10^3/uL (0.0-0.7) Basophils # (Auto) 0.0 x10^3/uL (0.0-0.2) Sodium Level 139 mmol/L (136-145) Potassium Level 3.3 mmol/L (3.5-5.1) Chloride Level 99 mmol/L (98-107) Carbon Dioxide Level 34 mmol/L (21-32) Anion Gap 6 (6-14) Blood Urea Nitrogen 6 mg/dL (7-20) Creatinine 1.1 mg/dL (0.6-1.0) Estimated GFR (Cockcroft-Gault) 59.1 BUN/Creatinine Ratio 5 (6-20) Glucose Level 170 mg/dL (70-99) Calcium Level 8.8 mg/dL (8.5-10.1) Total Bilirubin 0.4 mg/dL (0.2-1.0) Aspartate Amino Transf (AST/SGOT) 28 U/L (15-37) Alanine Aminotransferase (ALT/SGPT) 17 U/L (14-59) Alkaline Phosphatase 67 U/L (46-116) Creatine Kinase 1092 U/L (26-192) Total Protein 7.8 g/dL (6.4-8.2) Albumin 3.1 g/dL (3.4-5.0) Albumin/Globulin Ratio 0.7 (1.0-1.7) Glucose (Fingerstick) 170 mg/dL (70-99) Allergies: Coded Allergies: Iodinated Contrast- Oral and IV Dye (Verified Allergy, Intermediate, 03/13) PATIENT DOES NOT REMEMBER WHAT REACTION SHE HAS. Latex, Natural Rubber (Verified Allergy, Intermediate, ITCHING/REDNESS, ) Medications: Current Medications Medications (Trade) Dose Ordered Sig/Carin Route PRN Reason Start Time Stop Time Status Last Admin Dose Admin Magnesium Sulfate 50 ml @ 25 mls/hr 1X ONCE IV 03/13/18 12:00 03/13/18 13:59 DC 03/13/18 22:40 Potassium Chloride (Klor-Con) 40 meq 1X ONCE PO 03/13/18 12:00 03/13/18 12:03 DC 03/13/18 14:17 Potassium Chloride/Water 50 ml @ 25 mls/hr Q2H IV 03/13/18 14:00 03/13/18 17:59 DC 03/13/18 22:03 Lidocaine/Sodium Bicarbonate (Buffered Lidocaine 1%) 3 ml 1X ONCE INJ 03/13/18 16:15 03/13/18 16:17 DC 03/13/18 16:15 Carvedilol (Coreg) 25 mg BIDWMEALS PO 03/13/18 19:30 03/13/18 19:30 Insulin Glargine (Lantus) 30 units QHS SQ 03/13/18 21:00 03/13/18 22:39 Acetaminophen/ Hydrocodone Bitart (Lortab 5/325) 1 tab PRN Q4HRS PRN PO PAIN 03/13/18 19:15 03/14/18 08:33 Pantoprazole Sodium (PROTONIX VIAL for IV PUSH) 40 mg DAILYAC IVP 03/14/18 07:30 03/14/18 08:34 Imaging: Imaging: CXR Impression: 1. No acute cardiopulmonary process. CT A/P w/o contrast Lower chest: Dependent opacities likely scarring/atelectasis. No pleural effusion or pneumothorax. Heart is not enlarged. No pericardial effusion. Abdomen and Pelvis: No focal liver lesion. Liver is enlarged measuring approximately 19.8 cm in length.Cholecystectomy clips are seen. No biliary ductal dilatation. Spleen is unremarkable. Adrenal glands are normal. Pancreas is unremarkable. There are 2 4 mm nonobstructing right interpolar renal calculi. No left renal calculi. No hydronephrosis. Mild colonic stool content. Appendix is normal. Colonic diverticula are seen most prominent within the sigmoid colon. No evidence for acute diverticulitis. No evidence for bowel obstruction. No abdominal or pelvic ascites. No abdominal or pelvic lymphadenopathy by size criteria, although several prominent external iliac chain lymph nodes are seen measuring up to 8 mm in short axis. The partially distended bladder is grossly unremarkable. Changes of rectus diastases are seen with fatty atrophy of the ventral abdominal muscles. Atherosclerotic calcifications of aorta are seen. Bones: Degenerative changes of the spine are seen. There is approximately 50% height loss of the T12 vertebral body, age-indeterminate. Prominent Schmorl's node is also seen in the superior endplate of T10. Severe disc height loss with endplate sclerosis and cystic change L4-5 and L5-S1. Vacuum phenomenon is seen at L4-5. SI joint degenerative changes are seen. IMPRESSION: 1. Nonobstructing right interpolar renal calculi measuring 4 mm. 2. 50% height loss of the T12 vertebral body, age-indeterminate compression fracture. 3. Multilevel degenerative changes of spine are partially profiled. 4. Prominent pelvic lymph nodes measuring up to 8 mm short axis, nonspecific. 5. Appendix is normal. 6. Hepatomegaly PE: GEN: NAD, morbidly obese HEENT: Atraumatic, PERRL LUNGS: diminished, NC HEART: RRR ABD: difficult with obesity - soft, does not seem tender, BS+ EXTREMITY: BLE edema SKIN: towels tucked under pannus NEURO/PSYCH: A & O 3 A/P: A/P: Black stools, decreased appetite, nausea, ?abd pain Anemia, fecal occult negative -records suggest h/o anemia GERD -on Tums PRN - was + H. pylori on EGD in 2003, also h/o hiatal hernia H/o irregular bowel habits CRC screen - can document colonoscopy in 2003 Diverticulosis H/o C Diff S/p cholecystectomy Chronic pain, DM, ?UTI, elevated CK -- Has a lot of chronic GI issues. ?try diet and change to PO PPI - will review w/ Dr. Ruano. TYRA EDGAR Mar 14, 2018 09:09
--- NOTE | 2018-03-14 10:27 | PDOC ---
PROGRESS NOTES Chief Complaint Chief Complaint she had some dark stools, and again this morning. discomfort with urination. She states that she was seen by her PCPs office yesterday and started on bactrim antibiotic for urinary tract infection. reports some generalized abdominal discomfort. She denies any chest pain or shortness of breath. no known hx PUD chronic mobility issues secondary to morbid obesity, she also has history of CHF. she has been quite weak, k in er is 2.7 History of Present Illness History of Present Illness Assessment/Plan Assessment/Plan IMPRESSION 1. EPIGASTRIC PAIN WITH DARK STOOLS 2. PUD SUSPECTED 3. UTI ON BACTRIM 4. MARKED HYPOKALEMIA 5. 50% height loss of the T12 vertebral body, age-indeterminate compression fracture. PLAN 1. heart healthy diet 2.CONSULT GI 3. IV PROTONIX 4. SCD'S 5. IV K 6. FREQUENT LAB 7. CONSULT DR CINTRON 8. scd's DVT PROPHYLAXIS Vitals Vitals Vital Signs Date Time Temp Pulse Resp B/P (MAP) Pulse Ox O2 Delivery O2 Flow Rate FiO2 03/14/18 08:33 Nasal Cannula 2.5 03/14/18 07:00 97.4 73 20 150/85 (106) 100 97.4 Physical Exam General: Alert, Oriented X3, Cooperative, mild distress Heart: Regular rate, Normal S1, Normal S2 Lungs: Clear Abdomen: Normal bowel sounds, Soft Extremities: No clubbing, No cyanosis Skin: No significant lesion Labs LABS Laboratory Tests Test 03/13/18 11:00 03/13/18 22:15 03/14/18 06:25 03/14/18 07:36 White Blood Count 5.0 x10^3/uL (4.0-11.0) 4.6 x10^3/uL (4.0-11.0) Red Blood Count 3.99 x10^6/uL (3.50-5.40) 3.66 x10^6/uL (3.50-5.40) Hemoglobin 10.7 g/dL (12.0-15.5) 10.3 g/dL (12.0-15.5) Hematocrit 33.0 % (36.0-47.0) 30.4 % (36.0-47.0) Mean Corpuscular Volume 83 fL (79-100) 83 fL (79-100) Mean Corpuscular Hemoglobin 27 pg (25-35) 28 pg (25-35) Mean Corpuscular Hemoglobin Concent 32 g/dL (31-37) 34 g/dL (31-37) Red Cell Distribution Width 16.8 % (11.5-14.5) 17.2 % (11.5-14.5) Platelet Count 231 x10^3/uL (140-400) 185 x10^3/uL (140-400) Neutrophils (%) (Auto) 79 % (31-73) 68 % (31-73) Lymphocytes (%) (Auto) 13 % (24-48) 22 % (24-48) Monocytes (%) (Auto) 6 % (0-9) 7 % (0-9) Eosinophils (%) (Auto) 1 % (0-3) 2 % (0-3) Basophils (%) (Auto) 1 % (0-3) 1 % (0-3) Neutrophils # (Auto) 4.0 x10^3uL (1.8-7.7) 3.1 x10^3uL (1.8-7.7) Lymphocytes # (Auto) 0.7 x10^3/uL (1.0-4.8) 1.0 x10^3/uL (1.0-4.8) Monocytes # (Auto) 0.3 x10^3/uL (0.0-1.1) 0.3 x10^3/uL (0.0-1.1) Eosinophils # (Auto) 0.0 x10^3/uL (0.0-0.7) 0.1 x10^3/uL (0.0-0.7) Basophils # (Auto) 0.0 x10^3/uL (0.0-0.2) 0.0 x10^3/uL (0.0-0.2) Prothrombin Time 13.9 SEC (11.7-14.0) Prothromb Time International Ratio 1.1 (0.8-1.1) Activated Partial Thromboplast Time 30 SEC (24-38) Sodium Level 140 mmol/L (136-145) 139 mmol/L (136-145) Potassium Level 2.7 mmol/L (3.5-5.1) 3.3 mmol/L (3.5-5.1) Chloride Level 98 mmol/L (98-107) 99 mmol/L (98-107) Carbon Dioxide Level 35 mmol/L (21-32) 34 mmol/L (21-32) Anion Gap 7 (6-14) 6 (6-14) Blood Urea Nitrogen 9 mg/dL (7-20) 6 mg/dL (7-20) Creatinine 1.2 mg/dL (0.6-1.0) 1.1 mg/dL (0.6-1.0) Estimated GFR (Cockcroft-Gault) 44.2 59.1 BUN/Creatinine Ratio 8 (6-20) 5 (6-20) Glucose Level 161 mg/dL (70-99) 170 mg/dL (70-99) Calcium Level 9.3 mg/dL (8.5-10.1) 8.8 mg/dL (8.5-10.1) Magnesium Level 1.5 mg/dL (1.8-2.4) Total Bilirubin 0.3 mg/dL (0.2-1.0) 0.4 mg/dL (0.2-1.0) Aspartate Amino Transf (AST/SGOT) 26 U/L (15-37) 28 U/L (15-37) Alanine Aminotransferase (ALT/SGPT) 20 U/L (14-59) 17 U/L (14-59) Alkaline Phosphatase 77 U/L (46-116) 67 U/L (46-116) Creatine Kinase 1125 U/L (26-192) 1092 U/L (26-192) Creatine Kinase MB (Mass) 2.6 ng/mL (0.0-3.6) Creatine Kinase MB Relative Index 0.2 % (0-4) Troponin I Quantitative < 0.017 ng/mL (0.000-0.055) FQ-Ept-V-Type Natriuretic Peptide 775 pg/mL (0-124) Total Protein 8.5 g/dL (6.4-8.2) 7.8 g/dL (6.4-8.2) Albumin 3.6 g/dL (3.4-5.0) 3.1 g/dL (3.4-5.0) Albumin/Globulin Ratio 0.7 (1.0-1.7) 0.7 (1.0-1.7) Lipase 95 U/L (73-393) Free Thyroxine 1.04 ng/dL (0.76-1.46) Glucose (Fingerstick) 216 mg/dL (70-99) 170 mg/dL (70-99) Assessment and Plan Assessmemt and Plan Problems Medical Problems: (1) Abdominal pain Status: Acute (2) Anemia Status: Acute (3) Hypokalemia Status: Acute (4) Morbid obesity Status: Acute Comment Review of Relevant I have reviewed the following items miranda (where applicable) has been applied. Labs Laboratory Tests Test 03/13/18 09:40 03/13/18 10:10 03/13/18 11:00 03/13/18 22:15 Stool Occult Blood Negative (NEG) Urine Collection Type U cath Urine Color Yellow Urine Clarity Clear Urine pH 7.0 Urine Specific Russell 1.010 Urine Protein Negative mg/dL (NEG-TRACE) Urine Glucose (UA) 100 mg/dL (NEG) Urine Ketones (Stick) Negative mg/dL (NEG) Urine Blood Negative (NEG) Urine Nitrite Negative (NEG) Urine Bilirubin Negative (NEG) Urine Urobilinogen Dipstick 0.2 mg/dL (0.2 mg/dL) Urine Leukocyte Esterase Negative (NEG) Urine RBC Rare /HPF (0-2) Urine WBC 1-4 /HPF (0-4) Urine Squamous Epithelial Cells Many /LPF Urine Renal Epithelial Cells Occ /LPF Urine Bacteria Many /HPF (0-FEW) Urine Mucus Slight /LPF White Blood Count 5.0 x10^3/uL (4.0-11.0) Red Blood Count 3.99 x10^6/uL (3.50-5.40) Hemoglobin 10.7 g/dL (12.0-15.5) Hematocrit 33.0 % (36.0-47.0) Mean Corpuscular Volume 83 fL (79-100) Mean Corpuscular Hemoglobin 27 pg (25-35) Mean Corpuscular Hemoglobin Concent 32 g/dL (31-37) Red Cell Distribution Width 16.8 % (11.5-14.5) Platelet Count 231 x10^3/uL (140-400) Neutrophils (%) (Auto) 79 % (31-73) Lymphocytes (%) (Auto) 13 % (24-48) Monocytes (%) (Auto) 6 % (0-9) Eosinophils (%) (Auto) 1 % (0-3) Basophils (%) (Auto) 1 % (0-3) Neutrophils # (Auto) 4.0 x10^3uL (1.8-7.7) Lymphocytes # (Auto) 0.7 x10^3/uL (1.0-4.8) Monocytes # (Auto) 0.3 x10^3/uL (0.0-1.1) Eosinophils # (Auto) 0.0 x10^3/uL (0.0-0.7) Basophils # (Auto) 0.0 x10^3/uL (0.0-0.2) Prothrombin Time 13.9 SEC (11.7-14.0) Prothromb Time International Ratio 1.1 (0.8-1.1) Activated Partial Thromboplast Time 30 SEC (24-38) Sodium Level 140 mmol/L (136-145) Potassium Level 2.7 mmol/L (3.5-5.1) Chloride Level 98 mmol/L (98-107) Carbon Dioxide Level 35 mmol/L (21-32) Anion Gap 7 (6-14) Blood Urea Nitrogen 9 mg/dL (7-20) Creatinine 1.2 mg/dL (0.6-1.0) Estimated GFR (Cockcroft-Gault) 44.2 BUN/Creatinine Ratio 8 (6-20) Glucose Level 161 mg/dL (70-99) Calcium Level 9.3 mg/dL (8.5-10.1) Magnesium Level 1.5 mg/dL (1.8-2.4) Total Bilirubin 0.3 mg/dL (0.2-1.0) Aspartate Amino Transf (AST/SGOT) 26 U/L (15-37) Alanine Aminotransferase (ALT/SGPT) 20 U/L (14-59) Alkaline Phosphatase 77 U/L (46-116) Creatine Kinase 1125 U/L (26-192) Creatine Kinase MB (Mass) 2.6 ng/mL (0.0-3.6) Creatine Kinase MB Relative Index 0.2 % (0-4) Troponin I Quantitative < 0.017 ng/mL (0.000-0.055) OX-Kht-Y-Type Natriuretic Peptide 775 pg/mL (0-124) Total Protein 8.5 g/dL (6.4-8.2) Albumin 3.6 g/dL (3.4-5.0) Albumin/Globulin Ratio 0.7 (1.0-1.7) Lipase 95 U/L (73-393) Free Thyroxine 1.04 ng/dL (0.76-1.46) Glucose (Fingerstick) 216 mg/dL (70-99) Test 03/14/18 06:25 03/14/18 07:36 White Blood Count 4.6 x10^3/uL (4.0-11.0) Red Blood Count 3.66 x10^6/uL (3.50-5.40) Hemoglobin 10.3 g/dL (12.0-15.5) Hematocrit 30.4 % (36.0-47.0) Mean Corpuscular Volume 83 fL (79-100) Mean Corpuscular Hemoglobin 28 pg (25-35) Mean Corpuscular Hemoglobin Concent 34 g/dL (31-37) Red Cell Distribution Width 17.2 % (11.5-14.5) Platelet Count 185 x10^3/uL (140-400) Neutrophils (%) (Auto) 68 % (31-73) Lymphocytes (%) (Auto) 22 % (24-48) Monocytes (%) (Auto) 7 % (0-9) Eosinophils (%) (Auto) 2 % (0-3) Basophils (%) (Auto) 1 % (0-3) Neutrophils # (Auto) 3.1 x10^3uL (1.8-7.7) Lymphocytes # (Auto) 1.0 x10^3/uL (1.0-4.8) Monocytes # (Auto) 0.3 x10^3/uL (0.0-1.1) Eosinophils # (Auto) 0.1 x10^3/uL (0.0-0.7) Basophils # (Auto) 0.0 x10^3/uL (0.0-0.2) Sodium Level 139 mmol/L (136-145) Potassium Level 3.3 mmol/L (3.5-5.1) Chloride Level 99 mmol/L (98-107) Carbon Dioxide Level 34 mmol/L (21-32) Anion Gap 6 (6-14) Blood Urea Nitrogen 6 mg/dL (7-20) Creatinine 1.1 mg/dL (0.6-1.0) Estimated GFR (Cockcroft-Gault) 59.1 BUN/Creatinine Ratio 5 (6-20) Glucose Level 170 mg/dL (70-99) Calcium Level 8.8 mg/dL (8.5-10.1) Total Bilirubin 0.4 mg/dL (0.2-1.0) Aspartate Amino Transf (AST/SGOT) 28 U/L (15-37) Alanine Aminotransferase (ALT/SGPT) 17 U/L (14-59) Alkaline Phosphatase 67 U/L (46-116) Creatine Kinase 1092 U/L (26-192) Total Protein 7.8 g/dL (6.4-8.2) Albumin 3.1 g/dL (3.4-5.0) Albumin/Globulin Ratio 0.7 (1.0-1.7) Glucose (Fingerstick) 170 mg/dL (70-99) Laboratory Tests Test 03/13/18 11:00 03/13/18 22:15 03/14/18 06:25 03/14/18 07:36 White Blood Count 5.0 x10^3/uL (4.0-11.0) 4.6 x10^3/uL (4.0-11.0) Red Blood Count 3.99 x10^6/uL (3.50-5.40) 3.66 x10^6/uL (3.50-5.40) Hemoglobin 10.7 g/dL (12.0-15.5) 10.3 g/dL (12.0-15.5) Hematocrit 33.0 % (36.0-47.0) 30.4 % (36.0-47.0) Mean Corpuscular Volume 83 fL (79-100) 83 fL (79-100) Mean Corpuscular Hemoglobin 27 pg (25-35) 28 pg (25-35) Mean Corpuscular Hemoglobin Concent 32 g/dL (31-37) 34 g/dL (31-37) Red Cell Distribution Width 16.8 % (11.5-14.5) 17.2 % (11.5-14.5) Platelet Count 231 x10^3/uL (140-400) 185 x10^3/uL (140-400) Neutrophils (%) (Auto) 79 % (31-73) 68 % (31-73) Lymphocytes (%) (Auto) 13 % (24-48) 22 % (24-48) Monocytes (%) (Auto) 6 % (0-9) 7 % (0-9) Eosinophils (%) (Auto) 1 % (0-3) 2 % (0-3) Basophils (%) (Auto) 1 % (0-3) 1 % (0-3) Neutrophils # (Auto) 4.0 x10^3uL (1.8-7.7) 3.1 x10^3uL (1.8-7.7) Lymphocytes # (Auto) 0.7 x10^3/uL (1.0-4.8) 1.0 x10^3/uL (1.0-4.8) Monocytes # (Auto) 0.3 x10^3/uL (0.0-1.1) 0.3 x10^3/uL (0.0-1.1) Eosinophils # (Auto) 0.0 x10^3/uL (0.0-0.7) 0.1 x10^3/uL (0.0-0.7) Basophils # (Auto) 0.0 x10^3/uL (0.0-0.2) 0.0 x10^3/uL (0.0-0.2) Prothrombin Time 13.9 SEC (11.7-14.0) Prothromb Time International Ratio 1.1 (0.8-1.1) Activated Partial Thromboplast Time 30 SEC (24-38) Sodium Level 140 mmol/L (136-145) 139 mmol/L (136-145) Potassium Level 2.7 mmol/L (3.5-5.1) 3.3 mmol/L (3.5-5.1) Chloride Level 98 mmol/L (98-107) 99 mmol/L (98-107) Carbon Dioxide Level 35 mmol/L (21-32) 34 mmol/L (21-32) Anion Gap 7 (6-14) 6 (6-14) Blood Urea Nitrogen 9 mg/dL (7-20) 6 mg/dL (7-20) Creatinine 1.2 mg/dL (0.6-1.0) 1.1 mg/dL (0.6-1.0) Estimated GFR (Cockcroft-Gault) 44.2 59.1 BUN/Creatinine Ratio 8 (6-20) 5 (6-20) Glucose Level 161 mg/dL (70-99) 170 mg/dL (70-99) Calcium Level 9.3 mg/dL (8.5-10.1) 8.8 mg/dL (8.5-10.1) Magnesium Level 1.5 mg/dL (1.8-2.4) Total Bilirubin 0.3 mg/dL (0.2-1.0) 0.4 mg/dL (0.2-1.0) Aspartate Amino Transf (AST/SGOT) 26 U/L (15-37) 28 U/L (15-37) Alanine Aminotransferase (ALT/SGPT) 20 U/L (14-59) 17 U/L (14-59) Alkaline Phosphatase 77 U/L (46-116) 67 U/L (46-116) Creatine Kinase 1125 U/L (26-192) 1092 U/L (26-192) Creatine Kinase MB (Mass) 2.6 ng/mL (0.0-3.6) Creatine Kinase MB Relative Index 0.2 % (0-4) Troponin I Quantitative < 0.017 ng/mL (0.000-0.055) UY-Gns-V-Type Natriuretic Peptide 775 pg/mL (0-124) Total Protein 8.5 g/dL (6.4-8.2) 7.8 g/dL (6.4-8.2) Albumin 3.6 g/dL (3.4-5.0) 3.1 g/dL (3.4-5.0) Albumin/Globulin Ratio 0.7 (1.0-1.7) 0.7 (1.0-1.7) Lipase 95 U/L (73-393) Free Thyroxine 1.04 ng/dL (0.76-1.46) Glucose (Fingerstick) 216 mg/dL (70-99) 170 mg/dL (70-99) Medications Current Medications Magnesium Sulfate 50 ml @ 25 mls/hr 1X ONCE IV Last administered on at 22:40; Start 03/13/18 at 12:00; Stop 03/13/18 at 13:59; Status DC Potassium Chloride (Klor-Con) 40 meq 1X ONCE PO Last administered on at 14:17; Start 03/13/18 at 12:00; Stop 03/13/18 at 12:03; Status DC Potassium Chloride/Water 50 ml @ 25 mls/hr Q2H IV Last administered on at 22:03; Start 03/13/18 at 14:00; Stop 03/13/18 at 17:59; Status DC Lidocaine/Sodium Bicarbonate (Buffered Lidocaine 1%) 3 ml STK-MED ONCE .ROUTE ; Start 03/13/18 at 15:54; Stop 03/13/18 at 15:55; Status DC Lidocaine/Sodium Bicarbonate (Buffered Lidocaine 1%) 3 ml 1X ONCE INJ Last administered on 03/13/18at 16:15; Start 03/13/18 at 16:15; Stop 03/13/18 at 16 :17; Status DC Allopurinol (Zyloprim) 300 mg DAILY PO ; Start 03/14/18 at 09:00; Stop at 09:00; Status DC Amlodipine Besylate (Norvasc) 10 mg DAILY PO ; Start 03/14/18 at 09:00 Aspirin (Ecotrin) 81 mg DAILY PO ; Start 03/14/18 at 09:00 Furosemide (Lasix) 40 mg DAILY PO ; Start 03/14/18 at 09:00 Insulin Human Lispro (HumaLOG) 10 units TIDWMEALS SQ ; Start 03/14/18 at 08:00 Trimethoprim/ Sulfamethoxazole (Bactrim Ds) 1 tab DAILY PO ; Start 03/14/18 at 09:00; Stop 03/25/18 at 09:01 Amitriptyline HCl (Elavil) 75 mg QHS PO ; Start 03/13/18 at 21:00; Stop at 21:00; Status DC Carvedilol (Coreg) 25 mg BIDWMEALS PO Last administered on 03/13/18at 19:30; Start 03/13/18 at 19:30 Fluoxetine HCl (PROzac) 20 mg DAILY PO ; Start 03/14/18 at 09:00 Insulin Glargine (Lantus) 30 units QHS SQ Last administered on 03/13/18at 22:39 ; Start 03/13/18 at 21:00 Magnesium Oxide (Magnesium Oxide) 400 mg DAILY PO ; Start 03/14/18 at 09:00 Potassium Chloride (Klor-Con) 20 meq DAILYWBKFT PO ; Start 03/14/18 at 08:00 Acetaminophen/ Hydrocodone Bitart (Lortab 5/325) 1 tab PRN Q4HRS PRN PO PAIN Last administered on 03/14/18at 08:33; Start 03/13/18 at 19:15 Pantoprazole Sodium (PROTONIX VIAL for IV PUSH) 40 mg DAILYAC IVP Last administered on 03/14/18at 08:34; Start 03/14/18 at 07:30 Lactobacillus Rhamnosus (Culturelle) 1 cap BID PO ; Start 03/14/18 at 09:00 Active Scripts Active Reported Potassium Chloride 20 Meq Tablet.er 20 Meq PO DAILY Magnesium (Magnesium Oxide) 400 Mg Capsule 1 Cap PO DAILY Amitriptyline Hcl 75 Mg Tablet 1 Tab PO QHS Levemir (Insulin Detemir) 100 Unit/1 Ml Vial 30 Unit SQ HS Aspir-Low (Aspirin) 81 Mg Tablet.dr 1 Tab PO DAILY Carvedilol 25 Mg Tablet 1 Tab PO BID Humalog (Insulin Lispro) 100 Unit/1 Ml Insuln.pen 10 Unit SQ TIDWMEALS Allopurinol 300 Mg Tablet 1 Tab PO DAILY Furosemide 40 Mg Tablet 1 Tab PO DAILY Fluoxetine Hcl 20 Mg Tablet 1 Tab PO DAILY Amlodipine Besylate 10 Mg Tablet 10 Mg PO DAILY Bactrim Ds Tablet (Sulfamethoxazole/Trimethoprim) 1 Each Tablet 1 Tab PO DAILY Vitals/I & O Vital Sign - Last 24 Hours 03/13/18 03/13/18 03/13/18 03/13/18 10:30 11:00 12:00 13:30 Pulse 70 70 76 76 Resp 18 B/P (MAP) 149/72 (97) Pulse Ox 100 O2 Delivery Nasal Cannula O2 Flow Rate 2.0 03/13/18 03/13/18 03/13/18 03/13/18 14:00 14:30 15:00 15:30 Pulse 74 76 84 78 Resp 20 24 30 23 B/P (MAP) 168/77 (107) 176/90 (118) 158/82 (107) Pulse Ox 100 100 100 O2 Delivery Nasal Cannula Nasal Cannula Nasal Cannula Nasal Cannula O2 Flow Rate 2.0 2.0 2.0 2.0 03/13/18 03/13/18 03/13/18 03/13/18 18:20 18:50 19:00 19:30 Temp 98.3 98.0 98.3 98.0 Pulse 78 Resp 18 18 B/P (MAP) 150/81 (104) 143/77 (99) 150/81 Pulse Ox 100 98 O2 Delivery Nasal Cannula O2 Flow Rate 2.5 03/13/18 03/13/18 03/13/18 03/14/18 19:31 20:00 23:00 00:06 Temp 98.6 98.6 Resp 18 20 B/P (MAP) 140/81 (100) Pulse Ox 97 98 O2 Delivery Nasal Cannula Nasal Cannula Nasal Cannula O2 Flow Rate 2.5 3.0 2.5 03/14/18 03/14/18 03/14/18 03/14/18 03:00 04:08 05:08 07:00 Temp 98.9 97.4 98.9 97.4 Pulse 65 73 Resp 18 18 18 20 B/P (MAP) 128/81 (97) 150/85 (106) Pulse Ox 98 98 98 100 O2 Delivery Nasal Cannula Nasal Cannula Nasal Cannula O2 Flow Rate 2.5 2.5 2.0 03/14/18 08:33 O2 Delivery Nasal Cannula O2 Flow Rate 2.5 Intake and Output 03/13/18 03/13/18 03/14/18 15:00 23:00 07:00 Intake Total 450 ml Output Total 1000 ml Balance 450 ml -1000 ml JEFFERSON VORA MD Mar 14, 2018 10:27
[2018-03-14 10:54] VITALS: BP 153/86
--- NOTE | 2018-03-14 12:56 | CARD ---
MR#: [id number] Date of Study: 03/14/2018 Ordering Physician: JEFFERSON VORA, Referring Physician: JEFFERSON VORA, Tech: Netta Navarrete APPROVED REPORT EXAM: Two-dimensional and M-mode echocardiogram with Doppler and color Doppler. Other Information Quality : GoodHR: 82bpm INDICATION Congestive Heart Failure 2D DIMENSIONS RVDd2.8 (2.9-3.5cm)Left Atrium(2D)3.9 (1.6-4.0cm) IVSd1.2 (0.7-1.1cm)Aortic Root(2D)2.6 (2.0-3.7cm) LVDd4.7 (3.9-5.9cm)LVOT Diameter2.2 (1.8-2.4cm) PWd1.4 (0.7-1.1cm)LVDs2.8 (2.5-4.0cm) FS (%) 41.8 %SV76.0 ml LVEF(%)72.8 (>50%) Aortic Valve AoV Peak Luis Felipe.179.1cm/sAoV VTI34.5cm AO Peak GR.12.8mmHgLVOT VTI 22.22cm AO Mean GR.5mmHg Mitral Valve MV E Yuzgomjg18.4cm/sMV DECEL ASTD303hc MV A Wlanlile39.9cm/sE/A Ratio1.3 TDI Lateral E' P. V11.41cm/sMedial E' P. V8.56cm/s E/Lateral E'8.1E/Medial E'10.8 Tricuspid Valve TR P. Hypeocft543xq/sRAP [id number] TR Peak Gr.43lzLmWHEY71hsJo Pulmonary Vein S1 Rbjnlvqc90.2cm/sS2 Kdimbeqt10.43cm/s D2 Thppxoam65.4cm/s LEFT VENTRICLE The left ventricle is normal size. There is mild concentric left ventricular hypertrophy. The left ve ntricular systolic function is normal. The Ejection Fraction is 55-60%. There is normal LV segmental wall motion. The left ventricular diastolic function and filling is normal for age. RIGHT VENTRICLE The right ventricle is normal size. There is normal right ventricular wall thickness. The right ventr icular systolic function is normal. ATRIA The left atrium size is normal. The right atrium size is normal. The interatrial septum is intact wit h no evidence for an atrial septal defect or patent foramen ovale as noted on 2-D or Doppler imaging. AORTIC VALVE The aortic valve is normal in structure and function. Doppler and Color Flow revealed trace aortic re gurgitation. There is no significant aortic valvular stenosis. MITRAL VALVE The mitral valve is thickened but opens well. There is no mitral valve stenosis. Doppler and Color-fl ow revealed trace mitral regurgitation. TRICUSPID VALVE The tricuspid valve is normal in structure and function. Doppler and Color Flow revealed trace tricus pid regurgitation. PAP 46 mmHg. PULMONIC VALVE The pulmonic valve is not well visualized. Doppler and Color Flow revealed trace pulmonic valvular re gurgitation. GREAT VESSELS The aortic root is normal in size. Normal pulmonary venous flow (Doppler). The IVC is normal in size and collapses >50% with inspiration. PERICARDIAL EFFUSION There is small left pleural effusion. There is no evidence of significant pericardial effusion. Critical Notification Critical Value: No <Conclusion> The left ventricular systolic function is normal. The Ejection Fraction is 55-60%. There is normal LV segmental wall motion. Trace mitral regurgitation. Trace tricuspid regurgitation. PAP 46 mmHg. There is no evidence of significant pericardial effusion. Signed by : Teddy Butler, Electronically Approved : 03/14/2018 12:55:45
[2018-03-14] MEDS: ASPIRIN ENTERIC COATED 81 MG TABLET.DR. PO SCH (14:30)
[2018-03-14] MEDS: LACTOBACILLUS RHAMNOSUS GG 1 CAPSULE. PO SCH ×2 (14:30→22:34)
[2018-03-14] MEDS: MAGNESIUM OXIDE 400 MG TABLET PO SCH (14:30)
[2018-03-14] MEDS: SMZ/TMP 800/160MG TABLET. PO SCH (14:30)
[2018-03-14] MEDS: POTASSIUM CHLORIDE 20 MEQ TABLET.ER. PO SCH (14:30)
[2018-03-14] MEDS: CARVEDILOL 12.5 MG TABLET. PO SCH ×2 (14:32→17:38)
[2018-03-14] MEDS: FLUoxetine HCL 20 MG CAPSULE PO SCH (14:33)
[2018-03-14] MEDS: amLODIPine BESYLATE 10 MG TABLET PO SCH (14:33)
[2018-03-14 15:00] VITALS: BP 141/84
[2018-03-14] MEDS: DICLOFENAC SODIUM 1% TOPICAL GEL 100GM TUBE. TP SCH ×2 (17:38→22:34)
[2018-03-14 19:00] VITALS: BP 131/71
[2018-03-14] MEDS: INSULIN GLARGINE 300 UNITS/3 ML INSULN.PEN. SQ SCH (22:40)
[2018-03-14 23:00] VITALS: BP 136/73
--- NOTE | 2018-03-15 02:37 | CONS ---
DATE OF CONSULTATION: 03/14/2018 ATTENDING PHYSICIAN: Dr. Medina. REASON FOR CONSULTATION: The patient was seen at the request of Dr. Medina for evaluation about her T12 vertebral body compression fracture. HISTORY OF PRESENT ILLNESS: This is a 72-year-old right-handed female known to me in the past. The patient with known diabetes mellitus type 2, peripheral neuropathy, fibromyalgia, morbid obesity, chronic lower back pain from degenerative disk disease and degenerative joint disease of lumbar vertebrae, status post cholecystectomy. She still smokes. Also, morbid obesity and gastroesophageal reflux disease. Family history of hypercholesterolemia and hypertension. The patient lives alone, had 24-hour assistance. The patient usually gets in and out of bed by herself and uses a scooter to get around. She has not walked in several months over a couple of years. The patient uses bed [facility]. She had some problems with constipation last week or so, but yesterday she had some dark stools. The patient is being treated for urinary tract infection. The patient is known ALLERGIC TO IODINATED CONTRAST, ORAL AND IV DYE, LATEX, NATURAL RUBBER. The patient had CT scan of the lumbar spine, pelvis and abdomen done on 03/13/2018, which revealed nonobstructing right interpolar renal calculi measuring 4 mm, 50% height loss of T12 vertebral body age indeterminate, compression fracture, multilevel degenerative disk disease and degenerative joint disease of lumbar vertebrae, prominent pelvic lymph node measuring 8 mm short axis, nonspecific, hepatomegaly. The patient denies any recent fall, last fall more than a year ago. The patient admits some discomfort in her knees while she is getting up. She denies any significant back pain at present time. PHYSICAL EXAMINATION: Today revealed an elderly female. She is alert, oriented to time, place, person and circumstance and follows commands appropriately. She had 4/5 to 4+/5 grade muscle strength overall with relatively increased weakness in shoulder abductors and external rotators. Deep tendon reflexes are decreased to absent overall. She had equal perception of touch and pinprick sensation bilaterally, but decreased sensory perception in her feet when compared to proximal aspects of her lower extremities. She had crepitus on range of motion of both knee joints with mild knee joint effusion. She had some edema of her feet and deformed toes and also some deformity of right thumb secondary to degenerative joint disease changes at thumb carpometacarpal joint. She had crepitus on range of motion of both shoulders and tenderness to palpation at both shoulders. She had tenderness to palpation over medial aspect of both knees and also over lumbar paraspinal muscles extending over to sacroiliac joint area. Straight leg raising test is negative bilaterally. She is obese. She requires some help with bed mobility. I have not tested her transfers or ambulation skills at this time. ASSESSMENT: An elderly female with morbid obesity with chronic lower back pain from degenerative disk disease and degenerative joint disease of lumbar vertebrae with old T12 vertebral body compression fracture, painful degenerative joint disease of both knees, morbid obesity, diabetes mellitus with peripheral neuropathy, degenerative joint disease of both shoulders with partial rotator cuff lesion, history of fibromyalgia, the patient still smokes, gastroesophageal reflux disease and recent urinary tract infection. RECOMMENDATION: To ask Physical Therapy and Occupational Therapy to see her while she is here, to consider injecting painful sacroiliac joint and knees if they are coming in her way of getting up. Dr. Medina, I appreciate asking me to participate in the care of this interesting patient. I will be glad to follow her with you as needed for her rehabilitation. At this time, she does not need any kyphoplasty or vertebroplasty for T4 vertebral body compression fracture as she is not that much symptomatic. SANDRA CINTRON MD DR: CRISTAL/clayton JOB#: [id number] / [id number]
[2018-03-15 03:06] VITALS: BP 120/77
[2018-03-15 06:10] LABS: BASO % 1 % (0-3); EOS # 0.1 x10^3/uL (0.0-0.7); EOS % 2 % (0-3); HEMATOCRIT 28.4 % (36.0-47.0); HEMOGLOBIN 9.3 g/dL (12.0-15.5); LYMPH # 0.8 x10^3/uL (1.0-4.8); LYMPH % 21 % (24-48); MEAN CORPUSCULAR HEMOGLOBIN 28 pg (25-35); MEAN CORPUSCULAR HGB CONC 33 g/dL (31-37); MEAN CORPUSCULAR VOLUME 84 fL (79-100); MONO # 0.3 x10^3/uL (0.0-1.1); MONO % 8 % (0-9); NEUT # 2.6 x10^3uL (1.8-7.7); NEUT % 68 % (31-73); PLATELET COUNT 164 x10^3/uL (140-400); RED BLOOD COUNT 3.39 x10^6/uL (3.50-5.40); RED CELL DISTRIBUTION WIDTH 17.3 % (11.5-14.5); WHITE BLOOD COUNT 3.9 x10^3/uL (4.0-11.0)
[2018-03-15 06:35] LABS: CALCIUM 8.6 mg/dL (8.5-10.1); CREATININE 1.1 mg/dL (0.6-1.0); GFR 59.1; POTASSIUM 3.4 mmol/L (3.5-5.1)
[2018-03-15 07:00] VITALS: BP 138/77
[2018-03-15] MEDS: PANTOPRAZOLE 40 MG TABLET.DR. PO SCH (07:49)
[2018-03-15] MEDS: HYDROcodone/APAP 5/325MG 1 TAB TABLET PO PRN ×4 (07:50→22:40)
[2018-03-15] MEDS: MAGNESIUM OXIDE 400 MG TABLET PO SCH (09:34)
[2018-03-15] MEDS: FLUoxetine HCL 20 MG CAPSULE PO SCH (09:34)
[2018-03-15] MEDS: LACTOBACILLUS RHAMNOSUS GG 1 CAPSULE. PO SCH ×2 (09:34→20:57)
[2018-03-15] MEDS: POTASSIUM CHLORIDE 20 MEQ TABLET.ER. PO SCH (09:34)
[2018-03-15] MEDS: FUROSEMIDE 40 MG TABLET. PO SCH (09:34)
[2018-03-15] MEDS: CARVEDILOL 12.5 MG TABLET. PO SCH ×2 (09:35→17:47)
[2018-03-15] MEDS: amLODIPine BESYLATE 10 MG TABLET PO SCH (09:35)
[2018-03-15] MEDS: ASPIRIN ENTERIC COATED 81 MG TABLET.DR. PO SCH (09:35)
[2018-03-15] MEDS: DICLOFENAC SODIUM 1% TOPICAL GEL 100GM TUBE. TP SCH ×2 (09:36→20:58)
[2018-03-15] MEDS: SMZ/TMP 800/160MG TABLET. PO SCH (09:36)
[2018-03-15] MEDS: INSULIN LISPRO 300 UNITS/3 ML INSULN.PEN. SQ SCH ×3 (09:38→17:53)
--- NOTE | 2018-03-15 10:55 | PDOC ---
PROGRESS NOTES Chief Complaint Chief Complaint she has been quite weak, k in er is 2.7 History of Present Illness History of Present Illness Assessment/Plan Assessment/Plan IMPRESSION 1. EPIGASTRIC PAIN WITH DARK STOOLS, RESOLVED 2. PUD SUSPECTED 3. UTI ON BACTRIM 4. MARKED HYPOKALEMIA 5. 50% height loss of the T12 vertebral body, age-indeterminate compression fracture. 6. SLIGHT DROP IN HGB PLAN 1. heart healthy diet 2.CONSULT GI, FOLLOWING 3. IV PROTONIX 4. SCD'S 5. IV K 6. FREQUENT LAB 7. CONSULT DR CINTRON FX IS OLD 8. scd's DVT PROPHYLAXIS 9. CBC IN AM Vitals Vitals Vital Signs Date Time Temp Pulse Resp B/P (MAP) Pulse Ox O2 Delivery O2 Flow Rate FiO2 03/15/18 09:35 65 138/77 03/15/18 08:50 18 Nasal Cannula 2.0 03/15/18 07:00 97.2 100 97.2 Physical Exam General: Alert, Oriented X3, Cooperative, No acute distress, mild distress Heart: Regular rate, Normal S1, Normal S2 Lungs: Clear Abdomen: Normal bowel sounds, Soft Extremities: No clubbing, No cyanosis Skin: No significant lesion Labs LABS Laboratory Tests Test 03/14/18 17:00 03/14/18 20:17 03/15/18 05:45 Glucose (Fingerstick) 163 mg/dL (70-99) 140 mg/dL (70-99) White Blood Count 3.9 x10^3/uL (4.0-11.0) Red Blood Count 3.39 x10^6/uL (3.50-5.40) Hemoglobin 9.3 g/dL (12.0-15.5) Hematocrit 28.4 % (36.0-47.0) Mean Corpuscular Volume 84 fL (79-100) Mean Corpuscular Hemoglobin 28 pg (25-35) Mean Corpuscular Hemoglobin Concent 33 g/dL (31-37) Red Cell Distribution Width 17.3 % (11.5-14.5) Platelet Count 164 x10^3/uL (140-400) Neutrophils (%) (Auto) 68 % (31-73) Lymphocytes (%) (Auto) 21 % (24-48) Monocytes (%) (Auto) 8 % (0-9) Eosinophils (%) (Auto) 2 % (0-3) Basophils (%) (Auto) 1 % (0-3) Neutrophils # (Auto) 2.6 x10^3uL (1.8-7.7) Lymphocytes # (Auto) 0.8 x10^3/uL (1.0-4.8) Monocytes # (Auto) 0.3 x10^3/uL (0.0-1.1) Eosinophils # (Auto) 0.1 x10^3/uL (0.0-0.7) Basophils # (Auto) 0.0 x10^3/uL (0.0-0.2) Sodium Level 139 mmol/L (136-145) Potassium Level 3.4 mmol/L (3.5-5.1) Chloride Level 101 mmol/L (98-107) Carbon Dioxide Level 34 mmol/L (21-32) Anion Gap 4 (6-14) Blood Urea Nitrogen 6 mg/dL (7-20) Creatinine 1.1 mg/dL (0.6-1.0) Estimated GFR (Cockcroft-Gault) 59.1 Glucose Level 143 mg/dL (70-99) Calcium Level 8.6 mg/dL (8.5-10.1) Assessment and Plan Assessmemt and Plan Problems Medical Problems: (1) Abdominal pain Status: Acute (2) Anemia Status: Acute (3) Hypokalemia Status: Acute (4) Morbid obesity Status: Acute Comment Review of Relevant I have reviewed the following items miranda (where applicable) has been applied. Labs Laboratory Tests Test 03/13/18 11:00 03/13/18 22:15 03/14/18 06:25 03/14/18 07:36 White Blood Count 5.0 x10^3/uL (4.0-11.0) 4.6 x10^3/uL (4.0-11.0) Red Blood Count 3.99 x10^6/uL (3.50-5.40) 3.66 x10^6/uL (3.50-5.40) Hemoglobin 10.7 g/dL (12.0-15.5) 10.3 g/dL (12.0-15.5) Hematocrit 33.0 % (36.0-47.0) 30.4 % (36.0-47.0) Mean Corpuscular Volume 83 fL (79-100) 83 fL (79-100) Mean Corpuscular Hemoglobin 27 pg (25-35) 28 pg (25-35) Mean Corpuscular Hemoglobin Concent 32 g/dL (31-37) 34 g/dL (31-37) Red Cell Distribution Width 16.8 % (11.5-14.5) 17.2 % (11.5-14.5) Platelet Count 231 x10^3/uL (140-400) 185 x10^3/uL (140-400) Neutrophils (%) (Auto) 79 % (31-73) 68 % (31-73) Lymphocytes (%) (Auto) 13 % (24-48) 22 % (24-48) Monocytes (%) (Auto) 6 % (0-9) 7 % (0-9) Eosinophils (%) (Auto) 1 % (0-3) 2 % (0-3) Basophils (%) (Auto) 1 % (0-3) 1 % (0-3) Neutrophils # (Auto) 4.0 x10^3uL (1.8-7.7) 3.1 x10^3uL (1.8-7.7) Lymphocytes # (Auto) 0.7 x10^3/uL (1.0-4.8) 1.0 x10^3/uL (1.0-4.8) Monocytes # (Auto) 0.3 x10^3/uL (0.0-1.1) 0.3 x10^3/uL (0.0-1.1) Eosinophils # (Auto) 0.0 x10^3/uL (0.0-0.7) 0.1 x10^3/uL (0.0-0.7) Basophils # (Auto) 0.0 x10^3/uL (0.0-0.2) 0.0 x10^3/uL (0.0-0.2) Prothrombin Time 13.9 SEC (11.7-14.0) Prothromb Time International Ratio 1.1 (0.8-1.1) Activated Partial Thromboplast Time 30 SEC (24-38) Sodium Level 140 mmol/L (136-145) 139 mmol/L (136-145) Potassium Level 2.7 mmol/L (3.5-5.1) 3.3 mmol/L (3.5-5.1) Chloride Level 98 mmol/L (98-107) 99 mmol/L (98-107) Carbon Dioxide Level 35 mmol/L (21-32) 34 mmol/L (21-32) Anion Gap 7 (6-14) 6 (6-14) Blood Urea Nitrogen 9 mg/dL (7-20) 6 mg/dL (7-20) Creatinine 1.2 mg/dL (0.6-1.0) 1.1 mg/dL (0.6-1.0) Estimated GFR (Cockcroft-Gault) 44.2 59.1 BUN/Creatinine Ratio 8 (6-20) 5 (6-20) Glucose Level 161 mg/dL (70-99) 170 mg/dL (70-99) Calcium Level 9.3 mg/dL (8.5-10.1) 8.8 mg/dL (8.5-10.1) Magnesium Level 1.5 mg/dL (1.8-2.4) Total Bilirubin 0.3 mg/dL (0.2-1.0) 0.4 mg/dL (0.2-1.0) Aspartate Amino Transf (AST/SGOT) 26 U/L (15-37) 28 U/L (15-37) Alanine Aminotransferase (ALT/SGPT) 20 U/L (14-59) 17 U/L (14-59) Alkaline Phosphatase 77 U/L (46-116) 67 U/L (46-116) Creatine Kinase 1125 U/L (26-192) 1092 U/L (26-192) Creatine Kinase MB (Mass) 2.6 ng/mL (0.0-3.6) Creatine Kinase MB Relative Index 0.2 % (0-4) Troponin I Quantitative < 0.017 ng/mL (0.000-0.055) XF-Eyf-D-Type Natriuretic Peptide 775 pg/mL (0-124) Total Protein 8.5 g/dL (6.4-8.2) 7.8 g/dL (6.4-8.2) Albumin 3.6 g/dL (3.4-5.0) 3.1 g/dL (3.4-5.0) Albumin/Globulin Ratio 0.7 (1.0-1.7) 0.7 (1.0-1.7) Lipase 95 U/L (73-393) Free Thyroxine 1.04 ng/dL (0.76-1.46) Glucose (Fingerstick) 216 mg/dL (70-99) 170 mg/dL (70-99) Iron Level 32 ug/dL (50-170) Total Iron Binding Capacity 282 ug/dL (250-450) Iron Saturation 11 % (15-34) Test 03/14/18 17:00 03/14/18 20:17 03/15/18 05:45 Glucose (Fingerstick) 163 mg/dL (70-99) 140 mg/dL (70-99) White Blood Count 3.9 x10^3/uL (4.0-11.0) Red Blood Count 3.39 x10^6/uL (3.50-5.40) Hemoglobin 9.3 g/dL (12.0-15.5) Hematocrit 28.4 % (36.0-47.0) Mean Corpuscular Volume 84 fL (79-100) Mean Corpuscular Hemoglobin 28 pg (25-35) Mean Corpuscular Hemoglobin Concent 33 g/dL (31-37) Red Cell Distribution Width 17.3 % (11.5-14.5) Platelet Count 164 x10^3/uL (140-400) Neutrophils (%) (Auto) 68 % (31-73) Lymphocytes (%) (Auto) 21 % (24-48) Monocytes (%) (Auto) 8 % (0-9) Eosinophils (%) (Auto) 2 % (0-3) Basophils (%) (Auto) 1 % (0-3) Neutrophils # (Auto) 2.6 x10^3uL (1.8-7.7) Lymphocytes # (Auto) 0.8 x10^3/uL (1.0-4.8) Monocytes # (Auto) 0.3 x10^3/uL (0.0-1.1) Eosinophils # (Auto) 0.1 x10^3/uL (0.0-0.7) Basophils # (Auto) 0.0 x10^3/uL (0.0-0.2) Sodium Level 139 mmol/L (136-145) Potassium Level 3.4 mmol/L (3.5-5.1) Chloride Level 101 mmol/L (98-107) Carbon Dioxide Level 34 mmol/L (21-32) Anion Gap 4 (6-14) Blood Urea Nitrogen 6 mg/dL (7-20) Creatinine 1.1 mg/dL (0.6-1.0) Estimated GFR (Cockcroft-Gault) 59.1 Glucose Level 143 mg/dL (70-99) Calcium Level 8.6 mg/dL (8.5-10.1) Laboratory Tests Test 03/14/18 17:00 03/14/18 20:17 03/15/18 05:45 Glucose (Fingerstick) 163 mg/dL (70-99) 140 mg/dL (70-99) White Blood Count 3.9 x10^3/uL (4.0-11.0) Red Blood Count 3.39 x10^6/uL (3.50-5.40) Hemoglobin 9.3 g/dL (12.0-15.5) Hematocrit 28.4 % (36.0-47.0) Mean Corpuscular Volume 84 fL (79-100) Mean Corpuscular Hemoglobin 28 pg (25-35) Mean Corpuscular Hemoglobin Concent 33 g/dL (31-37) Red Cell Distribution Width 17.3 % (11.5-14.5) Platelet Count 164 x10^3/uL (140-400) Neutrophils (%) (Auto) 68 % (31-73) Lymphocytes (%) (Auto) 21 % (24-48) Monocytes (%) (Auto) 8 % (0-9) Eosinophils (%) (Auto) 2 % (0-3) Basophils (%) (Auto) 1 % (0-3) Neutrophils # (Auto) 2.6 x10^3uL (1.8-7.7) Lymphocytes # (Auto) 0.8 x10^3/uL (1.0-4.8) Monocytes # (Auto) 0.3 x10^3/uL (0.0-1.1) Eosinophils # (Auto) 0.1 x10^3/uL (0.0-0.7) Basophils # (Auto) 0.0 x10^3/uL (0.0-0.2) Sodium Level 139 mmol/L (136-145) Potassium Level 3.4 mmol/L (3.5-5.1) Chloride Level 101 mmol/L (98-107) Carbon Dioxide Level 34 mmol/L (21-32) Anion Gap 4 (6-14) Blood Urea Nitrogen 6 mg/dL (7-20) Creatinine 1.1 mg/dL (0.6-1.0) Estimated GFR (Cockcroft-Gault) 59.1 Glucose Level 143 mg/dL (70-99) Calcium Level 8.6 mg/dL (8.5-10.1) Medications Current Medications Magnesium Sulfate 50 ml @ 25 mls/hr 1X ONCE IV Last administered on at 22:40; Start 03/13/18 at 12:00; Stop 03/13/18 at 13:59; Status DC Potassium Chloride (Klor-Con) 40 meq 1X ONCE PO Last administered on at 14:17; Start 03/13/18 at 12:00; Stop 03/13/18 at 12:03; Status DC Potassium Chloride/Water 50 ml @ 25 mls/hr Q2H IV Last administered on at 22:03; Start 03/13/18 at 14:00; Stop 03/13/18 at 17:59; Status DC Lidocaine/Sodium Bicarbonate (Buffered Lidocaine 1%) 3 ml STK-MED ONCE .ROUTE ; Start 03/13/18 at 15:54; Stop 03/13/18 at 15:55; Status DC Lidocaine/Sodium Bicarbonate (Buffered Lidocaine 1%) 3 ml 1X ONCE INJ Last administered on 03/13/18at 16:15; Start 03/13/18 at 16:15; Stop 03/13/18 at 16 :17; Status DC Allopurinol (Zyloprim) 300 mg DAILY PO ; Start 03/14/18 at 09:00; Stop at 09:00; Status DC Amlodipine Besylate (Norvasc) 10 mg DAILY PO Last administered on 03/15/18at 09 :35; Start 03/14/18 at 09:00 Aspirin (Ecotrin) 81 mg DAILY PO Last administered on 03/15/18at 09:35; Start 03/14/18 at 09:00 Furosemide (Lasix) 40 mg DAILY PO Last administered on 03/15/18 09:34; Start 03/14/18 at 09:00 Insulin Human Lispro (HumaLOG) 10 units TIDWMEALS SQ Last administered on 03/15 09:38; Start 03/14/18 at 08:00 Trimethoprim/ Sulfamethoxazole (Bactrim Ds) 1 tab DAILY PO Last administered on 03/15/18 09:36; Start 03/14/18 at 09:00; Stop 03/25/18 at 09:01 Amitriptyline HCl (Elavil) 75 mg QHS PO ; Start 03/13/18 at 21:00; Stop at 21:00; Status DC Carvedilol (Coreg) 25 mg BIDWMEALS PO Last administered on 03/15/18 09:35; Start 03/13/18 at 19:30 Fluoxetine HCl (PROzac) 20 mg DAILY PO Last administered on 03/15/18 09:34; Start 03/14/18 at 09:00 Insulin Glargine (Lantus) 30 units QHS SQ Last administered on 03/14/18 22:40 ; Start 03/13/18 at 21:00 Magnesium Oxide (Magnesium Oxide) 400 mg DAILY PO Last administered on 09:34; Start 03/14/18 at 09:00 Potassium Chloride (Klor-Con) 20 meq DAILYWBKFT PO Last administered on 09:34; Start 03/14/18 at 08:00 Acetaminophen/ Hydrocodone Bitart (Lortab 5/325) 1 tab PRN Q4HRS PRN PO PAIN Last administered on 03/15/18 07:50; Start 03/13/18 at 19:15 Pantoprazole Sodium (PROTONIX VIAL for IV PUSH) 40 mg DAILYAC IVP Last administered on 03/14/18 08:34; Start 03/14/18 at 07:30; Stop 03/14/18 at 11 :49; Status DC Lactobacillus Rhamnosus (Culturelle) 1 cap BID PO Last administered on 09:34; Start 03/14/18 at 09:00 Pantoprazole Sodium (Protonix) 40 mg DAILYAC PO Last administered on at 07:49; Start 03/15/18 at 07:30 Diclofenac Sodium (Voltaren) 1 elroy BID TP Last administered on 03/15/18at 09:36 ; Start 03/14/18 at 16:00 Active Scripts Active Reported Potassium Chloride 20 Meq Tablet.er 20 Meq PO DAILY Magnesium (Magnesium Oxide) 400 Mg Capsule 1 Cap PO DAILY Amitriptyline Hcl 75 Mg Tablet 1 Tab PO QHS Levemir (Insulin Detemir) 100 Unit/1 Ml Vial 30 Unit SQ HS Aspir-Low (Aspirin) 81 Mg Tablet.dr 1 Tab PO DAILY Carvedilol 25 Mg Tablet 1 Tab PO BID Humalog (Insulin Lispro) 100 Unit/1 Ml Insuln.pen 10 Unit SQ TIDWMEALS Allopurinol 300 Mg Tablet 1 Tab PO DAILY Furosemide 40 Mg Tablet 1 Tab PO DAILY Fluoxetine Hcl 20 Mg Tablet 1 Tab PO DAILY Amlodipine Besylate 10 Mg Tablet 10 Mg PO DAILY Bactrim Ds Tablet (Sulfamethoxazole/Trimethoprim) 1 Each Tablet 1 Tab PO DAILY Vitals/I & O Vital Sign - Last 24 Hours 03/14/18 03/14/18 03/14/18 03/14/18 14:32 14:33 14:34 15:00 Pulse 84 84 84 B/P (MAP) 141/84 141/84 141/84 (103) O2 Delivery Nasal Cannula Nasal Cannula O2 Flow Rate 2.5 2.5 03/14/18 03/14/18 03/14/18 03/14/18 17:38 19:00 20:00 22:35 Temp 97.8 97.8 Pulse 84 61 Resp 20 18 B/P (MAP) 141/84 131/71 (91) Pulse Ox 100 100 O2 Delivery Nasal Cannula Nasal Cannula Nasal Cannula O2 Flow Rate 2.5 2.5 03/14/18 03/14/18 03/15/18 03/15/18 23:00 23:35 03:06 07:00 Temp 98.4 98.3 97.2 98.4 98.3 97.2 Pulse 65 66 65 Resp 20 20 18 B/P (MAP) 136/73 (94) 120/77 (91) 138/77 (97) Pulse Ox 100 100 98 100 O2 Delivery Nasal Cannula Nasal Cannula Nasal Cannula 03/15/18 03/15/18 03/15/18 03/15/18 07:50 08:50 09:35 09:35 Pulse 65 65 Resp 17 18 B/P (MAP) 138/77 138/77 O2 Delivery Nasal Cannula Nasal Cannula O2 Flow Rate 2.0 2.0 Intake and Output 03/14/18 03/14/18 03/15/18 15:00 23:00 07:00 Intake Total 0 ml 720 ml Output Total 1550 ml 0 ml Balance -1550 ml 720 ml JEFFERSON VORA MD Mar 15, 2018 10:55
[2018-03-15 11:00] VITALS: BP 128/73
[2018-03-15] MEDS ORDERED: ONDANSETRON PF 4 MG/2 ML VIAL. IV PRN (12:45)
--- NOTE | 2018-03-15 12:45 | PDOC ---
Subjective: Subjective: "I don't feel worth a darn." Stooling, not sure what color. "Anal canal is raw." Queasy. Maybe some upper abd discomfort. Objective: Objective: Reviewed w/ RN - a lot of brown stool, has requested tomato soup, asks about Zofran. Vital Signs: Vital Signs Date Time Temp Pulse Resp B/P (MAP) Pulse Ox O2 Delivery O2 Flow Rate FiO2 03/15/18 12:12 100 Nasal Cannula 2.0 03/15/18 11:00 98.9 63 18 128/73 (91) 98.9 Labs: Laboratory Tests Test 03/14/18 17:00 03/14/18 20:17 03/15/18 05:45 Glucose (Fingerstick) 163 mg/dL 140 mg/dL White Blood Count 3.9 x10^3/uL Red Blood Count 3.39 x10^6/uL Hemoglobin 9.3 g/dL Hematocrit 28.4 % Mean Corpuscular Volume 84 fL Mean Corpuscular Hemoglobin 28 pg Mean Corpuscular Hemoglobin Concent 33 g/dL Red Cell Distribution Width 17.3 % Platelet Count 164 x10^3/uL Neutrophils (%) (Auto) 68 % Lymphocytes (%) (Auto) 21 % Monocytes (%) (Auto) 8 % Eosinophils (%) (Auto) 2 % Basophils (%) (Auto) 1 % Neutrophils # (Auto) 2.6 x10^3uL Lymphocytes # (Auto) 0.8 x10^3/uL Monocytes # (Auto) 0.3 x10^3/uL Eosinophils # (Auto) 0.1 x10^3/uL Basophils # (Auto) 0.0 x10^3/uL Sodium Level 139 mmol/L Potassium Level 3.4 mmol/L Chloride Level 101 mmol/L Carbon Dioxide Level 34 mmol/L Anion Gap 4 Blood Urea Nitrogen 6 mg/dL Creatinine 1.1 mg/dL Estimated GFR (Cockcroft-Gault) 59.1 Glucose Level 143 mg/dL Calcium Level 8.6 mg/dL Imaging: Echo 03/14 <Conclusion> The left ventricular systolic function is normal. The Ejection Fraction is 55-60%. There is normal LV segmental wall motion. Trace mitral regurgitation. Trace tricuspid regurgitation. PAP 46 mmHg. There is no evidence of significant pericardial effusion. PE: GEN: NAD LUNGS: clear, NC HEART: RRR ABD: obese, vague upper discomfort - exam difficult NEURO/PSYCH: A & O 3 - more calm today A/P: Nausea/dyspepsia -h/o GERD, PPI started yesterday Anemia -fecal occult neg, iron sat 11 ?diarrhea -h/o irregular bowel habits, recently constipated -- Stools now normal in color. Not much appetite - continue PPI, okay for Zofran PRN. Other per Dr. Ruano. TYRA EDGAR Mar 15, 2018 12:45
--- NOTE | 2018-03-15 13:27 | PDOC ---
PROGRESS NOTES Subjective Subjective She admits some lower abdominal pain and wants steroid injection to he rknees. Objective Objective Vital Signs Date Time Temp Pulse Resp B/P (MAP) Pulse Ox O2 Delivery O2 Flow Rate FiO2 03/15/18 12:12 100 Nasal Cannula 2.0 03/15/18 11:00 98.9 63 18 128/73 (91) 98.9 Intake and Output 03/15/18 07:00 Intake Total 720 ml Output Total 1550 ml Balance -830 ml Intake Oral 720 ml Output Urine Total 1550 ml # Voids 2 # Bowel Movements 1 Physical Exam Physical Exam She is sitting in bed with head end of bed propped up and she continues with mobility and self care limitations. Assessment Assessment Problems Medical Problems: (1) Abdominal pain Status: Acute (2) Anemia Status: Acute (3) Hypokalemia Status: Acute (4) Morbid obesity Status: Acute Plan Plan of Care To consider injecting her knees before her discharge. Comment Review of Relevant I have reviewed the following items miranda (where applicable) has been applied. Labs Laboratory Tests Test 03/13/18 22:15 03/14/18 06:25 03/14/18 07:36 03/14/18 17:00 Glucose (Fingerstick) 216 mg/dL (70-99) 170 mg/dL (70-99) 163 mg/dL (70-99) White Blood Count 4.6 x10^3/uL (4.0-11.0) Red Blood Count 3.66 x10^6/uL (3.50-5.40) Hemoglobin 10.3 g/dL (12.0-15.5) Hematocrit 30.4 % (36.0-47.0) Mean Corpuscular Volume 83 fL (79-100) Mean Corpuscular Hemoglobin 28 pg (25-35) Mean Corpuscular Hemoglobin Concent 34 g/dL (31-37) Red Cell Distribution Width 17.2 % (11.5-14.5) Platelet Count 185 x10^3/uL (140-400) Neutrophils (%) (Auto) 68 % (31-73) Lymphocytes (%) (Auto) 22 % (24-48) Monocytes (%) (Auto) 7 % (0-9) Eosinophils (%) (Auto) 2 % (0-3) Basophils (%) (Auto) 1 % (0-3) Neutrophils # (Auto) 3.1 x10^3uL (1.8-7.7) Lymphocytes # (Auto) 1.0 x10^3/uL (1.0-4.8) Monocytes # (Auto) 0.3 x10^3/uL (0.0-1.1) Eosinophils # (Auto) 0.1 x10^3/uL (0.0-0.7) Basophils # (Auto) 0.0 x10^3/uL (0.0-0.2) Sodium Level 139 mmol/L (136-145) Potassium Level 3.3 mmol/L (3.5-5.1) Chloride Level 99 mmol/L (98-107) Carbon Dioxide Level 34 mmol/L (21-32) Anion Gap 6 (6-14) Blood Urea Nitrogen 6 mg/dL (7-20) Creatinine 1.1 mg/dL (0.6-1.0) Estimated GFR (Cockcroft-Gault) 59.1 BUN/Creatinine Ratio 5 (6-20) Glucose Level 170 mg/dL (70-99) Calcium Level 8.8 mg/dL (8.5-10.1) Iron Level 32 ug/dL (50-170) Total Iron Binding Capacity 282 ug/dL (250-450) Iron Saturation 11 % (15-34) Total Bilirubin 0.4 mg/dL (0.2-1.0) Aspartate Amino Transf (AST/SGOT) 28 U/L (15-37) Alanine Aminotransferase (ALT/SGPT) 17 U/L (14-59) Alkaline Phosphatase 67 U/L (46-116) Creatine Kinase 1092 U/L (26-192) Total Protein 7.8 g/dL (6.4-8.2) Albumin 3.1 g/dL (3.4-5.0) Albumin/Globulin Ratio 0.7 (1.0-1.7) Test 03/14/18 20:17 03/15/18 05:45 Glucose (Fingerstick) 140 mg/dL (70-99) White Blood Count 3.9 x10^3/uL (4.0-11.0) Red Blood Count 3.39 x10^6/uL (3.50-5.40) Hemoglobin 9.3 g/dL (12.0-15.5) Hematocrit 28.4 % (36.0-47.0) Mean Corpuscular Volume 84 fL (79-100) Mean Corpuscular Hemoglobin 28 pg (25-35) Mean Corpuscular Hemoglobin Concent 33 g/dL (31-37) Red Cell Distribution Width 17.3 % (11.5-14.5) Platelet Count 164 x10^3/uL (140-400) Neutrophils (%) (Auto) 68 % (31-73) Lymphocytes (%) (Auto) 21 % (24-48) Monocytes (%) (Auto) 8 % (0-9) Eosinophils (%) (Auto) 2 % (0-3) Basophils (%) (Auto) 1 % (0-3) Neutrophils # (Auto) 2.6 x10^3uL (1.8-7.7) Lymphocytes # (Auto) 0.8 x10^3/uL (1.0-4.8) Monocytes # (Auto) 0.3 x10^3/uL (0.0-1.1) Eosinophils # (Auto) 0.1 x10^3/uL (0.0-0.7) Basophils # (Auto) 0.0 x10^3/uL (0.0-0.2) Sodium Level 139 mmol/L (136-145) Potassium Level 3.4 mmol/L (3.5-5.1) Chloride Level 101 mmol/L (98-107) Carbon Dioxide Level 34 mmol/L (21-32) Anion Gap 4 (6-14) Blood Urea Nitrogen 6 mg/dL (7-20) Creatinine 1.1 mg/dL (0.6-1.0) Estimated GFR (Cockcroft-Gault) 59.1 Glucose Level 143 mg/dL (70-99) Calcium Level 8.6 mg/dL (8.5-10.1) Laboratory Tests Test 03/14/18 17:00 03/14/18 20:17 03/15/18 05:45 Glucose (Fingerstick) 163 mg/dL (70-99) 140 mg/dL (70-99) White Blood Count 3.9 x10^3/uL (4.0-11.0) Red Blood Count 3.39 x10^6/uL (3.50-5.40) Hemoglobin 9.3 g/dL (12.0-15.5) Hematocrit 28.4 % (36.0-47.0) Mean Corpuscular Volume 84 fL (79-100) Mean Corpuscular Hemoglobin 28 pg (25-35) Mean Corpuscular Hemoglobin Concent 33 g/dL (31-37) Red Cell Distribution Width 17.3 % (11.5-14.5) Platelet Count 164 x10^3/uL (140-400) Neutrophils (%) (Auto) 68 % (31-73) Lymphocytes (%) (Auto) 21 % (24-48) Monocytes (%) (Auto) 8 % (0-9) Eosinophils (%) (Auto) 2 % (0-3) Basophils (%) (Auto) 1 % (0-3) Neutrophils # (Auto) 2.6 x10^3uL (1.8-7.7) Lymphocytes # (Auto) 0.8 x10^3/uL (1.0-4.8) Monocytes # (Auto) 0.3 x10^3/uL (0.0-1.1) Eosinophils # (Auto) 0.1 x10^3/uL (0.0-0.7) Basophils # (Auto) 0.0 x10^3/uL (0.0-0.2) Sodium Level 139 mmol/L (136-145) Potassium Level 3.4 mmol/L (3.5-5.1) Chloride Level 101 mmol/L (98-107) Carbon Dioxide Level 34 mmol/L (21-32) Anion Gap 4 (6-14) Blood Urea Nitrogen 6 mg/dL (7-20) Creatinine 1.1 mg/dL (0.6-1.0) Estimated GFR (Cockcroft-Gault) 59.1 Glucose Level 143 mg/dL (70-99) Calcium Level 8.6 mg/dL (8.5-10.1) Medications Current Medications Magnesium Sulfate 50 ml @ 25 mls/hr 1X ONCE IV Last administered on at 22:40; Start 03/13/18 at 12:00; Stop 03/13/18 at 13:59; Status DC Potassium Chloride (Klor-Con) 40 meq 1X ONCE PO Last administered on at 14:17; Start 03/13/18 at 12:00; Stop 03/13/18 at 12:03; Status DC Potassium Chloride/Water 50 ml @ 25 mls/hr Q2H IV Last administered on at 22:03; Start 03/13/18 at 14:00; Stop 03/13/18 at 17:59; Status DC Lidocaine/Sodium Bicarbonate (Buffered Lidocaine 1%) 3 ml STK-MED ONCE .ROUTE ; Start 03/13/18 at 15:54; Stop 03/13/18 at 15:55; Status DC Lidocaine/Sodium Bicarbonate (Buffered Lidocaine 1%) 3 ml 1X ONCE INJ Last administered on 03/13/18at 16:15; Start 03/13/18 at 16:15; Stop 03/13/18 at 16 :17; Status DC Allopurinol (Zyloprim) 300 mg DAILY PO ; Start 03/14/18 at 09:00; Stop at 09:00; Status DC Amlodipine Besylate (Norvasc) 10 mg DAILY PO Last administered on 03/15/18at 09 :35; Start 03/14/18 at 09:00 Aspirin (Ecotrin) 81 mg DAILY PO Last administered on 03/15/18at 09:35; Start 03/14/18 at 09:00 Furosemide (Lasix) 40 mg DAILY PO Last administered on 03/15/18 09:34; Start 03/14/18 at 09:00 Insulin Human Lispro (HumaLOG) 10 units TIDWMEALS SQ Last administered on 03/15at 09:38; Start 03/14/18 at 08:00 Trimethoprim/ Sulfamethoxazole (Bactrim Ds) 1 tab DAILY PO Last administered on 03/15/18at 09:36; Start 03/14/18 at 09:00; Stop 03/25/18 at 09:01 Amitriptyline HCl (Elavil) 75 mg QHS PO ; Start 03/13/18 at 21:00; Stop at 21:00; Status DC Carvedilol (Coreg) 25 mg BIDWMEALS PO Last administered on 03/15/18at 09:35; Start 03/13/18 at 19:30 Fluoxetine HCl (PROzac) 20 mg DAILY PO Last administered on 03/15/18at 09:34; Start 03/14/18 at 09:00 Insulin Glargine (Lantus) 30 units QHS SQ Last administered on 03/14/18at 22:40 ; Start 03/13/18 at 21:00 Magnesium Oxide (Magnesium Oxide) 400 mg DAILY PO Last administered on 09:34; Start 03/14/18 at 09:00 Potassium Chloride (Klor-Con) 20 meq DAILYWBKFT PO Last administered on 09:34; Start 03/14/18 at 08:00 Acetaminophen/ Hydrocodone Bitart (Lortab 5/325) 1 tab PRN Q4HRS PRN PO PAIN Last administered on 03/15/18 12:12; Start 03/13/18 at 19:15 Pantoprazole Sodium (PROTONIX VIAL for IV PUSH) 40 mg DAILYAC IVP Last administered on 03/14/18 08:34; Start 03/14/18 at 07:30; Stop 03/14/18 at 11 :49; Status DC Lactobacillus Rhamnosus (Culturelle) 1 cap BID PO Last administered on 09:34; Start 03/14/18 at 09:00 Pantoprazole Sodium (Protonix) 40 mg DAILYAC PO Last administered on 07:49; Start 03/15/18 at 07:30 Diclofenac Sodium (Voltaren) 1 elroy BID TP Last administered on 03/15/18 09:36 ; Start 03/14/18 at 16:00 Ondansetron HCl (Zofran) 4 mg PRN Q8HRS PRN IV NAUSEA/VOMITING; Start at 12:45 Active Scripts Active Reported Potassium Chloride 20 Meq Tablet.er 20 Meq PO DAILY Magnesium (Magnesium Oxide) 400 Mg Capsule 1 Cap PO DAILY Amitriptyline Hcl 75 Mg Tablet 1 Tab PO QHS Levemir (Insulin Detemir) 100 Unit/1 Ml Vial 30 Unit SQ HS Aspir-Low (Aspirin) 81 Mg Tablet.dr 1 Tab PO DAILY Carvedilol 25 Mg Tablet 1 Tab PO BID Humalog (Insulin Lispro) 100 Unit/1 Ml Insuln.pen 10 Unit SQ TIDWMEALS Allopurinol 300 Mg Tablet 1 Tab PO DAILY Furosemide 40 Mg Tablet 1 Tab PO DAILY Fluoxetine Hcl 20 Mg Tablet 1 Tab PO DAILY Amlodipine Besylate 10 Mg Tablet 10 Mg PO DAILY Bactrim Ds Tablet (Sulfamethoxazole/Trimethoprim) 1 Each Tablet 1 Tab PO DAILY Vitals/I & O Vital Sign - Last 24 Hours 03/14/18 03/14/18 03/14/18 03/14/18 14:32 14:33 14:34 15:00 Pulse 84 84 84 B/P (MAP) 141/84 141/84 141/84 (103) O2 Delivery Nasal Cannula Nasal Cannula O2 Flow Rate 2.5 2.5 03/14/18 03/14/18 03/14/18 03/14/18 17:38 19:00 20:00 22:35 Temp 97.8 97.8 Pulse 84 61 Resp 20 18 B/P (MAP) 141/84 131/71 (91) Pulse Ox 100 100 O2 Delivery Nasal Cannula Nasal Cannula Nasal Cannula O2 Flow Rate 2.5 2.5 03/14/18 03/14/18 03/15/18 03/15/18 23:00 23:35 03:06 07:00 Temp 98.4 98.3 97.2 98.4 98.3 97.2 Pulse 65 66 65 Resp 20 20 18 B/P (MAP) 136/73 (94) 120/77 (91) 138/77 (97) Pulse Ox 100 100 98 100 O2 Delivery Nasal Cannula Nasal Cannula Nasal Cannula 03/15/18 03/15/18 03/15/18 03/15/18 07:50 08:00 08:50 09:35 Pulse 65 Resp 17 18 B/P (MAP) 138/77 O2 Delivery Nasal Cannula Nasal Cannula Nasal Cannula O2 Flow Rate 2.0 2.0 2.0 03/15/18 03/15/18 03/15/18 09:35 11:00 12:12 Temp 98.9 98.9 Pulse 65 63 Resp 18 B/P (MAP) 138/77 128/73 (91) Pulse Ox 99 100 O2 Delivery Nasal Cannula Nasal Cannula O2 Flow Rate 2.0 Intake and Output 03/14/18 03/14/18 03/15/18 15:00 23:00 07:00 Intake Total 0 ml 720 ml Output Total 1550 ml 0 ml Balance -1550 ml 720 ml SANDRA CINTRON MD Mar 15, 2018 13:27
[2018-03-15] MEDS ORDERED: POTASSIUM CHLORIDE 20 MEQ TABLET.ER. PO ONE (14:30)
[2018-03-15 15:00] VITALS: BP 135/74
[2018-03-15 19:00] VITALS: BP 112/64
[2018-03-15] MEDS: INSULIN GLARGINE 300 UNITS/3 ML INSULN.PEN. SQ SCH (21:07)
[2018-03-15 23:01] VITALS: BP 142/79
[2018-03-16 03:01] VITALS: BP 145/78
[2018-03-16] MEDS: HYDROcodone/APAP 5/325MG 1 TAB TABLET PO PRN ×3 (03:53→16:50)
[2018-03-16 05:46] LABS: BASO % 1 % (0-3); EOS # 0.1 x10^3/uL (0.0-0.7); EOS % 3 % (0-3); HEMATOCRIT 29.6 % (36.0-47.0); HEMOGLOBIN 9.7 g/dL (12.0-15.5); LYMPH # 0.9 x10^3/uL (1.0-4.8); LYMPH % 23 % (24-48); MEAN CORPUSCULAR HEMOGLOBIN 27 pg (25-35); MEAN CORPUSCULAR HGB CONC 33 g/dL (31-37); MEAN CORPUSCULAR VOLUME 83 fL (79-100); MONO # 0.3 x10^3/uL (0.0-1.1); MONO % 8 % (0-9); NEUT # 2.5 x10^3uL (1.8-7.7); NEUT % 66 % (31-73); PLATELET COUNT 170 x10^3/uL (140-400); RED BLOOD COUNT 3.58 x10^6/uL (3.50-5.40); RED CELL DISTRIBUTION WIDTH 17.3 % (11.5-14.5); WHITE BLOOD COUNT 3.8 x10^3/uL (4.0-11.0)
[2018-03-16] MEDS: PANTOPRAZOLE 40 MG TABLET.DR. PO SCH (06:02)
[2018-03-16 06:13] LABS: ALBUMIN/GLOBULIN RATIO 0.7 (1.0-1.7); CALCIUM 8.6 mg/dL (8.5-10.1); CREATININE 1.1 mg/dL (0.6-1.0); GFR 59.1; POTASSIUM 3.6 mmol/L (3.5-5.1); TOTAL BILIRUBIN 0.3 mg/dL (0.2-1.0); TOTAL PROTEIN 7.2 g/dL (6.4-8.2)
[2018-03-16 07:00] VITALS: BP 144/49
[2018-03-16] MEDS: INSULIN LISPRO 300 UNITS/3 ML INSULN.PEN. SQ SCH ×3 (08:00→17:14)
[2018-03-16 11:00] VITALS: BP 144/76
[2018-03-16] MEDS: CARVEDILOL 12.5 MG TABLET. PO SCH ×2 (11:46→17:08)
[2018-03-16] MEDS: LACTOBACILLUS RHAMNOSUS GG 1 CAPSULE. PO SCH ×2 (11:47→20:52)
[2018-03-16] MEDS: POTASSIUM CHLORIDE 20 MEQ TABLET.ER. PO SCH (11:47)
[2018-03-16] MEDS: amLODIPine BESYLATE 10 MG TABLET PO SCH (11:48)
[2018-03-16] MEDS: FLUoxetine HCL 20 MG CAPSULE PO SCH (11:48)
[2018-03-16] MEDS: SMZ/TMP 800/160MG TABLET. PO SCH (11:48)
[2018-03-16] MEDS: ASPIRIN ENTERIC COATED 81 MG TABLET.DR. PO SCH (11:48)
[2018-03-16] MEDS: MAGNESIUM OXIDE 400 MG TABLET PO SCH (11:48)
[2018-03-16] MEDS: FUROSEMIDE 40 MG TABLET. PO SCH (11:48)
[2018-03-16] MEDS: DICLOFENAC SODIUM 1% TOPICAL GEL 100GM TUBE. TP SCH ×2 (11:51→20:53)
[2018-03-16] MEDS ORDERED: methylPREDNISolone ACETATE 40 MG/ML VIAL. ONE (12:00)
[2018-03-16] MEDS ORDERED: methylPREDNISolone ACETATE 40 MG/ML VIAL. INJ ONE ×2 (12:00)
[2018-03-16] MEDS ORDERED: BUPIVACAINE MPF 0.25% 10 ML VIAL. ONE (12:00)
[2018-03-16] MEDS ORDERED: BUPIVACAINE MPF 0.25% 10 ML VIAL. IJ ONE (12:00)
[2018-03-16] MEDS: IRON POLYSACCHARIDE COMPLEX 150 MG CAPSULE PO SCH ×2 (12:19→20:52)
--- NOTE | 2018-03-16 12:40 | PDOC ---
PROGRESS NOTES Chief Complaint Chief Complaint she states that her back pain is quite worse, she was seen by dr carlos who is planning to inject her History of Present Illness History of Present Illness Assessment/Plan Assessment/Plan IMPRESSION 1. EPIGASTRIC PAIN WITH DARK STOOLS, RESOLVED 2. PUD SUSPECTED 3. UTI ON BACTRIM 4. MARKED HYPOKALEMIA 5. 50% height loss of the T12 vertebral body, age-indeterminate compression fracture. 6. SLIGHT DROP IN HGB UTI PLAN plan for depo injections start rocephin for e coli growth in urine 1. heart healthy diet 2.CONSULT GI, FOLLOWING 3. IV PROTONIX 4. SCD'S 5. IV K 6. FREQUENT LAB 7. CONSULT DR CINTRON FX IS OLD 8. scd's DVT PROPHYLAXIS 9. CBC IN AM Vitals Vitals Vital Signs Date Time Temp Pulse Resp B/P (MAP) Pulse Ox O2 Delivery O2 Flow Rate FiO2 03/16/18 11:48 68 144/76 03/16/18 11:45 18 99 Nasal Cannula 2.0 03/16/18 11:00 98.0 98.0 Physical Exam General: Alert, Oriented X3, Cooperative, No acute distress, mild distress Heart: Regular rate, Normal S1, Normal S2 Lungs: Clear Abdomen: Normal bowel sounds, Soft Extremities: No clubbing, No cyanosis Skin: No significant lesion Labs LABS Laboratory Tests Test 03/15/18 13:24 03/15/18 16:11 03/15/18 20:56 03/15/18 22:26 Glucose (Fingerstick) 227 mg/dL (70-99) 156 mg/dL (70-99) 125 mg/dL (70-99) 163 mg/dL (70-99) Test 03/16/18 05:20 03/16/18 07:33 03/16/18 11:42 White Blood Count 3.8 x10^3/uL (4.0-11.0) Red Blood Count 3.58 x10^6/uL (3.50-5.40) Hemoglobin 9.7 g/dL (12.0-15.5) Hematocrit 29.6 % (36.0-47.0) Mean Corpuscular Volume 83 fL (79-100) Mean Corpuscular Hemoglobin 27 pg (25-35) Mean Corpuscular Hemoglobin Concent 33 g/dL (31-37) Red Cell Distribution Width 17.3 % (11.5-14.5) Platelet Count 170 x10^3/uL (140-400) Neutrophils (%) (Auto) 66 % (31-73) Lymphocytes (%) (Auto) 23 % (24-48) Monocytes (%) (Auto) 8 % (0-9) Eosinophils (%) (Auto) 3 % (0-3) Basophils (%) (Auto) 1 % (0-3) Neutrophils # (Auto) 2.5 x10^3uL (1.8-7.7) Lymphocytes # (Auto) 0.9 x10^3/uL (1.0-4.8) Monocytes # (Auto) 0.3 x10^3/uL (0.0-1.1) Eosinophils # (Auto) 0.1 x10^3/uL (0.0-0.7) Basophils # (Auto) 0.0 x10^3/uL (0.0-0.2) Sodium Level 140 mmol/L (136-145) Potassium Level 3.6 mmol/L (3.5-5.1) Chloride Level 100 mmol/L (98-107) Carbon Dioxide Level 33 mmol/L (21-32) Anion Gap 7 (6-14) Blood Urea Nitrogen 6 mg/dL (7-20) Creatinine 1.1 mg/dL (0.6-1.0) Estimated GFR (Cockcroft-Gault) 59.1 BUN/Creatinine Ratio 5 (6-20) Glucose Level 147 mg/dL (70-99) Calcium Level 8.6 mg/dL (8.5-10.1) Total Bilirubin 0.3 mg/dL (0.2-1.0) Aspartate Amino Transf (AST/SGOT) 20 U/L (15-37) Alanine Aminotransferase (ALT/SGPT) 16 U/L (14-59) Alkaline Phosphatase 67 U/L (46-116) Total Protein 7.2 g/dL (6.4-8.2) Albumin 3.0 g/dL (3.4-5.0) Albumin/Globulin Ratio 0.7 (1.0-1.7) Glucose (Fingerstick) 144 mg/dL (70-99) 145 mg/dL (70-99) Assessment and Plan Assessmemt and Plan Problems Medical Problems: (1) Abdominal pain Status: Acute (2) Anemia Status: Acute (3) Hypokalemia Status: Acute (4) Morbid obesity Status: Acute Comment Review of Relevant I have reviewed the following items miranda (where applicable) has been applied. Labs Laboratory Tests Test 03/14/18 17:00 03/14/18 20:17 03/15/18 05:45 03/15/18 13:24 Glucose (Fingerstick) 163 mg/dL (70-99) 140 mg/dL (70-99) 227 mg/dL (70-99) White Blood Count 3.9 x10^3/uL (4.0-11.0) Red Blood Count 3.39 x10^6/uL (3.50-5.40) Hemoglobin 9.3 g/dL (12.0-15.5) Hematocrit 28.4 % (36.0-47.0) Mean Corpuscular Volume 84 fL (79-100) Mean Corpuscular Hemoglobin 28 pg (25-35) Mean Corpuscular Hemoglobin Concent 33 g/dL (31-37) Red Cell Distribution Width 17.3 % (11.5-14.5) Platelet Count 164 x10^3/uL (140-400) Neutrophils (%) (Auto) 68 % (31-73) Lymphocytes (%) (Auto) 21 % (24-48) Monocytes (%) (Auto) 8 % (0-9) Eosinophils (%) (Auto) 2 % (0-3) Basophils (%) (Auto) 1 % (0-3) Neutrophils # (Auto) 2.6 x10^3uL (1.8-7.7) Lymphocytes # (Auto) 0.8 x10^3/uL (1.0-4.8) Monocytes # (Auto) 0.3 x10^3/uL (0.0-1.1) Eosinophils # (Auto) 0.1 x10^3/uL (0.0-0.7) Basophils # (Auto) 0.0 x10^3/uL (0.0-0.2) Sodium Level 139 mmol/L (136-145) Potassium Level 3.4 mmol/L (3.5-5.1) Chloride Level 101 mmol/L (98-107) Carbon Dioxide Level 34 mmol/L (21-32) Anion Gap 4 (6-14) Blood Urea Nitrogen 6 mg/dL (7-20) Creatinine 1.1 mg/dL (0.6-1.0) Estimated GFR (Cockcroft-Gault) 59.1 Glucose Level 143 mg/dL (70-99) Calcium Level 8.6 mg/dL (8.5-10.1) Test 03/15/18 16:11 03/15/18 20:56 03/15/18 22:26 03/16/18 05:20 Glucose (Fingerstick) 156 mg/dL (70-99) 125 mg/dL (70-99) 163 mg/dL (70-99) White Blood Count 3.8 x10^3/uL (4.0-11.0) Red Blood Count 3.58 x10^6/uL (3.50-5.40) Hemoglobin 9.7 g/dL (12.0-15.5) Hematocrit 29.6 % (36.0-47.0) Mean Corpuscular Volume 83 fL (79-100) Mean Corpuscular Hemoglobin 27 pg (25-35) Mean Corpuscular Hemoglobin Concent 33 g/dL (31-37) Red Cell Distribution Width 17.3 % (11.5-14.5) Platelet Count 170 x10^3/uL (140-400) Neutrophils (%) (Auto) 66 % (31-73) Lymphocytes (%) (Auto) 23 % (24-48) Monocytes (%) (Auto) 8 % (0-9) Eosinophils (%) (Auto) 3 % (0-3) Basophils (%) (Auto) 1 % (0-3) Neutrophils # (Auto) 2.5 x10^3uL (1.8-7.7) Lymphocytes # (Auto) 0.9 x10^3/uL (1.0-4.8) Monocytes # (Auto) 0.3 x10^3/uL (0.0-1.1) Eosinophils # (Auto) 0.1 x10^3/uL (0.0-0.7) Basophils # (Auto) 0.0 x10^3/uL (0.0-0.2) Sodium Level 140 mmol/L (136-145) Potassium Level 3.6 mmol/L (3.5-5.1) Chloride Level 100 mmol/L (98-107) Carbon Dioxide Level 33 mmol/L (21-32) Anion Gap 7 (6-14) Blood Urea Nitrogen 6 mg/dL (7-20) Creatinine 1.1 mg/dL (0.6-1.0) Estimated GFR (Cockcroft-Gault) 59.1 BUN/Creatinine Ratio 5 (6-20) Glucose Level 147 mg/dL (70-99) Calcium Level 8.6 mg/dL (8.5-10.1) Total Bilirubin 0.3 mg/dL (0.2-1.0) Aspartate Amino Transf (AST/SGOT) 20 U/L (15-37) Alanine Aminotransferase (ALT/SGPT) 16 U/L (14-59) Alkaline Phosphatase 67 U/L (46-116) Total Protein 7.2 g/dL (6.4-8.2) Albumin 3.0 g/dL (3.4-5.0) Albumin/Globulin Ratio 0.7 (1.0-1.7) Test 03/16/18 07:33 03/16/18 11:42 Glucose (Fingerstick) 144 mg/dL (70-99) 145 mg/dL (70-99) Laboratory Tests Test 03/15/18 13:24 03/15/18 16:11 03/15/18 20:56 03/15/18 22:26 Glucose (Fingerstick) 227 mg/dL (70-99) 156 mg/dL (70-99) 125 mg/dL (70-99) 163 mg/dL (70-99) Test 03/16/18 05:20 03/16/18 07:33 03/16/18 11:42 White Blood Count 3.8 x10^3/uL (4.0-11.0) Red Blood Count 3.58 x10^6/uL (3.50-5.40) Hemoglobin 9.7 g/dL (12.0-15.5) Hematocrit 29.6 % (36.0-47.0) Mean Corpuscular Volume 83 fL (79-100) Mean Corpuscular Hemoglobin 27 pg (25-35) Mean Corpuscular Hemoglobin Concent 33 g/dL (31-37) Red Cell Distribution Width 17.3 % (11.5-14.5) Platelet Count 170 x10^3/uL (140-400) Neutrophils (%) (Auto) 66 % (31-73) Lymphocytes (%) (Auto) 23 % (24-48) Monocytes (%) (Auto) 8 % (0-9) Eosinophils (%) (Auto) 3 % (0-3) Basophils (%) (Auto) 1 % (0-3) Neutrophils # (Auto) 2.5 x10^3uL (1.8-7.7) Lymphocytes # (Auto) 0.9 x10^3/uL (1.0-4.8) Monocytes # (Auto) 0.3 x10^3/uL (0.0-1.1) Eosinophils # (Auto) 0.1 x10^3/uL (0.0-0.7) Basophils # (Auto) 0.0 x10^3/uL (0.0-0.2) Sodium Level 140 mmol/L (136-145) Potassium Level 3.6 mmol/L (3.5-5.1) Chloride Level 100 mmol/L (98-107) Carbon Dioxide Level 33 mmol/L (21-32) Anion Gap 7 (6-14) Blood Urea Nitrogen 6 mg/dL (7-20) Creatinine 1.1 mg/dL (0.6-1.0) Estimated GFR (Cockcroft-Gault) 59.1 BUN/Creatinine Ratio 5 (6-20) Glucose Level 147 mg/dL (70-99) Calcium Level 8.6 mg/dL (8.5-10.1) Total Bilirubin 0.3 mg/dL (0.2-1.0) Aspartate Amino Transf (AST/SGOT) 20 U/L (15-37) Alanine Aminotransferase (ALT/SGPT) 16 U/L (14-59) Alkaline Phosphatase 67 U/L (46-116) Total Protein 7.2 g/dL (6.4-8.2) Albumin 3.0 g/dL (3.4-5.0) Albumin/Globulin Ratio 0.7 (1.0-1.7) Glucose (Fingerstick) 144 mg/dL (70-99) 145 mg/dL (70-99) Microbiology 03/15/18 Fecal Leukocyte Stain - Final, Complete 03/13/18 Urine Culture - Preliminary, Resulted 03/13/18 Urine Culture Result 1 (HOWIE) - Preliminary, Resulted Medications Current Medications Magnesium Sulfate 50 ml @ 25 mls/hr 1X ONCE IV Last administered on at 22:40; Start 03/13/18 at 12:00; Stop 03/13/18 at 13:59; Status DC Potassium Chloride (Klor-Con) 40 meq 1X ONCE PO Last administered on at 14:17; Start 03/13/18 at 12:00; Stop 03/13/18 at 12:03; Status DC Potassium Chloride/Water 50 ml @ 25 mls/hr Q2H IV Last administered on at 22:03; Start 03/13/18 at 14:00; Stop 03/13/18 at 17:59; Status DC Lidocaine/Sodium Bicarbonate (Buffered Lidocaine 1%) 3 ml STK-MED ONCE .ROUTE ; Start 03/13/18 at 15:54; Stop 03/13/18 at 15:55; Status DC Lidocaine/Sodium Bicarbonate (Buffered Lidocaine 1%) 3 ml 1X ONCE INJ Last administered on 03/13/18at 16:15; Start 03/13/18 at 16:15; Stop 03/13/18 at 16 :17; Status DC Allopurinol (Zyloprim) 300 mg DAILY PO ; Start 03/14/18 at 09:00; Stop at 09:00; Status DC Amlodipine Besylate (Norvasc) 10 mg DAILY PO Last administered on 03/16/18at 11 :48; Start 03/14/18 at 09:00 Aspirin (Ecotrin) 81 mg DAILY PO Last administered on 03/16/18at 11:48; Start 03/14/18 at 09:00 Furosemide (Lasix) 40 mg DAILY PO Last administered on 03/16/18at 11:48; Start 03/14/18 at 09:00 Insulin Human Lispro (HumaLOG) 10 units TIDWMEALS SQ Last administered on 03/16at 12:17; Start 03/14/18 at 08:00 Trimethoprim/ Sulfamethoxazole (Bactrim Ds) 1 tab DAILY PO Last administered on 03/16/18at 11:48; Start 03/14/18 at 09:00; Stop 03/25/18 at 09:01 Amitriptyline HCl (Elavil) 75 mg QHS PO ; Start 03/13/18 at 21:00; Stop at 21:00; Status DC Carvedilol (Coreg) 25 mg BIDWMEALS PO Last administered on 03/16/18 11:46; Start 03/13/18 at 19:30 Fluoxetine HCl (PROzac) 20 mg DAILY PO Last administered on 03/16/18 11:48; Start 03/14/18 at 09:00 Insulin Glargine (Lantus) 30 units QHS SQ Last administered on 03/15/18at 21:07 ; Start 03/13/18 at 21:00 Magnesium Oxide (Magnesium Oxide) 400 mg DAILY PO Last administered on 11:48; Start 03/14/18 at 09:00 Potassium Chloride (Klor-Con) 20 meq DAILYWBKFT PO Last administered on at 11:47; Start 03/14/18 at 08:00 Acetaminophen/ Hydrocodone Bitart (Lortab 5/325) 1 tab PRN Q4HRS PRN PO PAIN Last administered on 03/16/18 11:45; Start 03/13/18 at 19:15 Pantoprazole Sodium (PROTONIX VIAL for IV PUSH) 40 mg DAILYAC IVP Last administered on 03/14/18at 08:34; Start 03/14/18 at 07:30; Stop 03/14/18 at 11 :49; Status DC Lactobacillus Rhamnosus (Culturelle) 1 cap BID PO Last administered on at 11:47; Start 03/14/18 at 09:00 Pantoprazole Sodium (Protonix) 40 mg DAILYAC PO Last administered on at 06:02; Start 03/15/18 at 07:30 Diclofenac Sodium (Voltaren) 1 elroy BID TP Last administered on 03/16/18 11:51 ; Start 03/14/18 at 16:00 Ondansetron HCl (Zofran) 4 mg PRN Q8HRS PRN IV NAUSEA/VOMITING; Start at 12:45 Potassium Chloride (Klor-Con) 40 meq 1X ONCE PO Last administered on at 17:45; Start 03/15/18 at 14:30; Stop 03/15/18 at 14:31; Status DC Methylprednisolone Acetate (DEPO-Medrol 40MG VIAL) 40 mg 1X ONCE INJ ; Start 03/16/18 at 12:00; Stop 03/16/18 at 12:01; Status DC Methylprednisolone Acetate (DEPO-Medrol 40MG VIAL) 40 mg 1X ONCE INJ ; Start 03/16/18 at 12:00; Stop 03/16/18 at 12:01; Status DC Bupivacaine HCl (Sensorcaine-Mpf 0.25%) 10 ml 1X ONCE IJ ; Start 03/16/18 at 12:00; Stop 03/16/18 at 12:01; Status DC Polysaccharide Iron Complex (Niferex 150) 150 mg BID PO Last administered on at 12:19; Start 03/16/18 at 12:00 Active Scripts Active Reported Potassium Chloride 20 Meq Tablet.er 20 Meq PO DAILY Magnesium (Magnesium Oxide) 400 Mg Capsule 1 Cap PO DAILY Amitriptyline Hcl 75 Mg Tablet 1 Tab PO QHS Levemir (Insulin Detemir) 100 Unit/1 Ml Vial 30 Unit SQ HS Aspir-Low (Aspirin) 81 Mg Tablet.dr 1 Tab PO DAILY Carvedilol 25 Mg Tablet 1 Tab PO BID Humalog (Insulin Lispro) 100 Unit/1 Ml Insuln.pen 10 Unit SQ TIDWMEALS Allopurinol 300 Mg Tablet 1 Tab PO DAILY Furosemide 40 Mg Tablet 1 Tab PO DAILY Fluoxetine Hcl 20 Mg Tablet 1 Tab PO DAILY Amlodipine Besylate 10 Mg Tablet 10 Mg PO DAILY Bactrim Ds Tablet (Sulfamethoxazole/Trimethoprim) 1 Each Tablet 1 Tab PO DAILY Vitals/I & O Vital Sign - Last 24 Hours 03/15/18 03/15/18 03/15/18 03/15/18 15:00 17:46 17:47 19:00 Temp 98.5 97.1 98.5 97.1 Pulse 57 57 59 Resp 18 20 B/P (MAP) 135/74 (94) 135/74 112/64 (80) Pulse Ox 95 95 99 O2 Delivery Nasal Cannula Nasal Cannula Nasal Cannula O2 Flow Rate 2.0 03/15/18 03/15/18 03/15/18 03/16/18 20:00 22:40 23:01 03:01 Temp 98.9 97.9 98.9 97.9 Pulse 58 65 Resp 20 20 20 B/P (MAP) 142/79 (100) 145/78 (100) Pulse Ox 99 99 100 O2 Delivery Nasal Cannula Nasal Cannula Nasal Cannula Nasal Cannula O2 Flow Rate 2.0 2.0 03/16/18 03/16/18 03/16/18 03/16/18 03:53 04:53 07:00 11:00 Temp 98.4 98.0 98.4 98.0 Pulse 68 68 Resp 20 20 20 20 B/P (MAP) 144/49 (80) 144/76 (98) Pulse Ox 100 99 100 O2 Delivery Nasal Cannula Nasal Cannula Nasal Cannula Nasal Cannula O2 Flow Rate 2.0 03/16/18 03/16/18 03/16/18 11:45 11:46 11:48 Pulse 68 68 Resp 18 B/P (MAP) 144/76 144/76 Pulse Ox 99 O2 Delivery Nasal Cannula O2 Flow Rate 2.0 BIA DAWSON MD Mar 16, 2018 12:40
[2018-03-16] MEDS ORDERED: cefTRIAXone IV Push 1 GM VIAL. IVP SCH (13:00)
--- NOTE | 2018-03-16 14:49 | PDOC ---
Subjective: Subjective: Frequent stooling - occurs immediately after eating. Objective: Vital Signs: Vital Signs Date Time Temp Pulse Resp B/P (MAP) Pulse Ox O2 Delivery O2 Flow Rate FiO2 03/16/18 11:48 68 144/76 03/16/18 11:45 18 99 Nasal Cannula 2.0 03/16/18 11:00 98.0 98.0 Labs: Laboratory Tests Test 03/15/18 16:11 03/15/18 20:30 03/15/18 20:56 03/15/18 22:26 Glucose (Fingerstick) 156 mg/dL 125 mg/dL 163 mg/dL Clostridium difficile Toxin (PCR) Negative Test 03/16/18 05:20 03/16/18 07:33 03/16/18 11:42 White Blood Count 3.8 x10^3/uL Red Blood Count 3.58 x10^6/uL Hemoglobin 9.7 g/dL Hematocrit 29.6 % Mean Corpuscular Volume 83 fL Mean Corpuscular Hemoglobin 27 pg Mean Corpuscular Hemoglobin Concent 33 g/dL Red Cell Distribution Width 17.3 % Platelet Count 170 x10^3/uL Neutrophils (%) (Auto) 66 % Lymphocytes (%) (Auto) 23 % Monocytes (%) (Auto) 8 % Eosinophils (%) (Auto) 3 % Basophils (%) (Auto) 1 % Neutrophils # (Auto) 2.5 x10^3uL Lymphocytes # (Auto) 0.9 x10^3/uL Monocytes # (Auto) 0.3 x10^3/uL Eosinophils # (Auto) 0.1 x10^3/uL Basophils # (Auto) 0.0 x10^3/uL Sodium Level 140 mmol/L Potassium Level 3.6 mmol/L Chloride Level 100 mmol/L Carbon Dioxide Level 33 mmol/L Anion Gap 7 Blood Urea Nitrogen 6 mg/dL Creatinine 1.1 mg/dL Estimated GFR (Cockcroft-Gault) 59.1 BUN/Creatinine Ratio 5 Glucose Level 147 mg/dL Calcium Level 8.6 mg/dL Total Bilirubin 0.3 mg/dL Aspartate Amino Transf (AST/SGOT) 20 U/L Alanine Aminotransferase (ALT/SGPT) 16 U/L Alkaline Phosphatase 67 U/L Total Protein 7.2 g/dL Albumin 3.0 g/dL Albumin/Globulin Ratio 0.7 Glucose (Fingerstick) 144 mg/dL 145 mg/dL FECAL WBC,GRAM STAIN Final WBCS OCCASIONAL URINE CULTURE Preliminary Preliminary report URINE CULTURE RES 1 Preliminary Escherichia coli PE: GEN: NAD LUNGS: CTAB HEART: RRR ABD: obese, soft, some discomfort - better? NEURO/PSYCH: A & O 3 A/P: Frequent stooling ROMINA - stable UTI -- Imodium? TYRA EDGAR Mar 16, 2018 14:49
[2018-03-16 15:00] VITALS: BP 145/74
--- NOTE | 2018-03-16 17:41 | PDOC ---
PROGRESS NOTES Subjective Subjective She admits diarrhea and lower abdominal and low back and knee joint pain. Objective Objective Vital Signs Date Time Temp Pulse Resp B/P (MAP) Pulse Ox O2 Delivery O2 Flow Rate FiO2 03/16/18 17:08 57 145/74 03/16/18 16:50 18 98 Nasal Cannula 2.0 03/16/18 15:00 98.7 98.7 Intake and Output 03/16/18 07:00 # Voids 1 # Bowel Movements 2 Physical Exam Physical Exam She could not participate with therapy with her back pain. She had tenderness to palpation over sacroiliac joints bilaterally. She had painfully limited lumbar spine and knee joint ROM. Assessment Assessment Problems Medical Problems: (1) Abdominal pain Status: Acute (2) Anemia Status: Acute (3) Hypokalemia Status: Acute (4) Morbid obesity Status: Acute Plan Plan of Care At her request,I have injected painful right sacroiliac joint under aseptic skin technique with 2 ml of ).25% marcaine and 1ml of depomedrol 40 mg 1ml solution and she tolerated the procedure satisfactorily without any side effects. To consider injecting left sacroiliac joints and her knees depending on her response and need Comment Review of Relevant I have reviewed the following items miranda (where applicable) has been applied. Labs Laboratory Tests Test 03/14/18 20:17 03/15/18 05:45 03/15/18 13:24 03/15/18 16:11 Glucose (Fingerstick) 140 mg/dL (70-99) 227 mg/dL (70-99) 156 mg/dL (70-99) White Blood Count 3.9 x10^3/uL (4.0-11.0) Red Blood Count 3.39 x10^6/uL (3.50-5.40) Hemoglobin 9.3 g/dL (12.0-15.5) Hematocrit 28.4 % (36.0-47.0) Mean Corpuscular Volume 84 fL (79-100) Mean Corpuscular Hemoglobin 28 pg (25-35) Mean Corpuscular Hemoglobin Concent 33 g/dL (31-37) Red Cell Distribution Width 17.3 % (11.5-14.5) Platelet Count 164 x10^3/uL (140-400) Neutrophils (%) (Auto) 68 % (31-73) Lymphocytes (%) (Auto) 21 % (24-48) Monocytes (%) (Auto) 8 % (0-9) Eosinophils (%) (Auto) 2 % (0-3) Basophils (%) (Auto) 1 % (0-3) Neutrophils # (Auto) 2.6 x10^3uL (1.8-7.7) Lymphocytes # (Auto) 0.8 x10^3/uL (1.0-4.8) Monocytes # (Auto) 0.3 x10^3/uL (0.0-1.1) Eosinophils # (Auto) 0.1 x10^3/uL (0.0-0.7) Basophils # (Auto) 0.0 x10^3/uL (0.0-0.2) Sodium Level 139 mmol/L (136-145) Potassium Level 3.4 mmol/L (3.5-5.1) Chloride Level 101 mmol/L (98-107) Carbon Dioxide Level 34 mmol/L (21-32) Anion Gap 4 (6-14) Blood Urea Nitrogen 6 mg/dL (7-20) Creatinine 1.1 mg/dL (0.6-1.0) Estimated GFR (Cockcroft-Gault) 59.1 Glucose Level 143 mg/dL (70-99) Calcium Level 8.6 mg/dL (8.5-10.1) Test 03/15/18 20:30 03/15/18 20:56 03/15/18 22:26 03/16/18 05:20 Clostridium difficile Toxin (PCR) Negative (Negative) Glucose (Fingerstick) 125 mg/dL (70-99) 163 mg/dL (70-99) White Blood Count 3.8 x10^3/uL (4.0-11.0) Red Blood Count 3.58 x10^6/uL (3.50-5.40) Hemoglobin 9.7 g/dL (12.0-15.5) Hematocrit 29.6 % (36.0-47.0) Mean Corpuscular Volume 83 fL (79-100) Mean Corpuscular Hemoglobin 27 pg (25-35) Mean Corpuscular Hemoglobin Concent 33 g/dL (31-37) Red Cell Distribution Width 17.3 % (11.5-14.5) Platelet Count 170 x10^3/uL (140-400) Neutrophils (%) (Auto) 66 % (31-73) Lymphocytes (%) (Auto) 23 % (24-48) Monocytes (%) (Auto) 8 % (0-9) Eosinophils (%) (Auto) 3 % (0-3) Basophils (%) (Auto) 1 % (0-3) Neutrophils # (Auto) 2.5 x10^3uL (1.8-7.7) Lymphocytes # (Auto) 0.9 x10^3/uL (1.0-4.8) Monocytes # (Auto) 0.3 x10^3/uL (0.0-1.1) Eosinophils # (Auto) 0.1 x10^3/uL (0.0-0.7) Basophils # (Auto) 0.0 x10^3/uL (0.0-0.2) Sodium Level 140 mmol/L (136-145) Potassium Level 3.6 mmol/L (3.5-5.1) Chloride Level 100 mmol/L (98-107) Carbon Dioxide Level 33 mmol/L (21-32) Anion Gap 7 (6-14) Blood Urea Nitrogen 6 mg/dL (7-20) Creatinine 1.1 mg/dL (0.6-1.0) Estimated GFR (Cockcroft-Gault) 59.1 BUN/Creatinine Ratio 5 (6-20) Glucose Level 147 mg/dL (70-99) Calcium Level 8.6 mg/dL (8.5-10.1) Total Bilirubin 0.3 mg/dL (0.2-1.0) Aspartate Amino Transf (AST/SGOT) 20 U/L (15-37) Alanine Aminotransferase (ALT/SGPT) 16 U/L (14-59) Alkaline Phosphatase 67 U/L (46-116) Total Protein 7.2 g/dL (6.4-8.2) Albumin 3.0 g/dL (3.4-5.0) Albumin/Globulin Ratio 0.7 (1.0-1.7) Test 03/16/18 07:33 03/16/18 11:42 03/16/18 16:29 Glucose (Fingerstick) 144 mg/dL (70-99) 145 mg/dL (70-99) 153 mg/dL (70-99) Laboratory Tests Test 03/15/18 20:30 03/15/18 20:56 03/15/18 22:26 03/16/18 05:20 Clostridium difficile Toxin (PCR) Negative (Negative) Glucose (Fingerstick) 125 mg/dL (70-99) 163 mg/dL (70-99) White Blood Count 3.8 x10^3/uL (4.0-11.0) Red Blood Count 3.58 x10^6/uL (3.50-5.40) Hemoglobin 9.7 g/dL (12.0-15.5) Hematocrit 29.6 % (36.0-47.0) Mean Corpuscular Volume 83 fL (79-100) Mean Corpuscular Hemoglobin 27 pg (25-35) Mean Corpuscular Hemoglobin Concent 33 g/dL (31-37) Red Cell Distribution Width 17.3 % (11.5-14.5) Platelet Count 170 x10^3/uL (140-400) Neutrophils (%) (Auto) 66 % (31-73) Lymphocytes (%) (Auto) 23 % (24-48) Monocytes (%) (Auto) 8 % (0-9) Eosinophils (%) (Auto) 3 % (0-3) Basophils (%) (Auto) 1 % (0-3) Neutrophils # (Auto) 2.5 x10^3uL (1.8-7.7) Lymphocytes # (Auto) 0.9 x10^3/uL (1.0-4.8) Monocytes # (Auto) 0.3 x10^3/uL (0.0-1.1) Eosinophils # (Auto) 0.1 x10^3/uL (0.0-0.7) Basophils # (Auto) 0.0 x10^3/uL (0.0-0.2) Sodium Level 140 mmol/L (136-145) Potassium Level 3.6 mmol/L (3.5-5.1) Chloride Level 100 mmol/L (98-107) Carbon Dioxide Level 33 mmol/L (21-32) Anion Gap 7 (6-14) Blood Urea Nitrogen 6 mg/dL (7-20) Creatinine 1.1 mg/dL (0.6-1.0) Estimated GFR (Cockcroft-Gault) 59.1 BUN/Creatinine Ratio 5 (6-20) Glucose Level 147 mg/dL (70-99) Calcium Level 8.6 mg/dL (8.5-10.1) Total Bilirubin 0.3 mg/dL (0.2-1.0) Aspartate Amino Transf (AST/SGOT) 20 U/L (15-37) Alanine Aminotransferase (ALT/SGPT) 16 U/L (14-59) Alkaline Phosphatase 67 U/L (46-116) Total Protein 7.2 g/dL (6.4-8.2) Albumin 3.0 g/dL (3.4-5.0) Albumin/Globulin Ratio 0.7 (1.0-1.7) Test 03/16/18 07:33 03/16/18 11:42 03/16/18 16:29 Glucose (Fingerstick) 144 mg/dL (70-99) 145 mg/dL (70-99) 153 mg/dL (70-99) Microbiology 03/15/18 Fecal Leukocyte Stain - Final, Complete 03/13/18 Urine Culture - Preliminary, Resulted 03/13/18 Urine Culture Result 1 (HOWIE) - Preliminary, Resulted Medications Current Medications Magnesium Sulfate 50 ml @ 25 mls/hr 1X ONCE IV Last administered on at 22:40; Start 03/13/18 at 12:00; Stop 03/13/18 at 13:59; Status DC Potassium Chloride (Klor-Con) 40 meq 1X ONCE PO Last administered on at 14:17; Start 03/13/18 at 12:00; Stop 03/13/18 at 12:03; Status DC Potassium Chloride/Water 50 ml @ 25 mls/hr Q2H IV Last administered on at 22:03; Start 03/13/18 at 14:00; Stop 03/13/18 at 17:59; Status DC Lidocaine/Sodium Bicarbonate (Buffered Lidocaine 1%) 3 ml STK-MED ONCE .ROUTE ; Start 03/13/18 at 15:54; Stop 03/13/18 at 15:55; Status DC Lidocaine/Sodium Bicarbonate (Buffered Lidocaine 1%) 3 ml 1X ONCE INJ Last administered on 03/13/18at 16:15; Start 03/13/18 at 16:15; Stop 03/13/18 at 16 :17; Status DC Allopurinol (Zyloprim) 300 mg DAILY PO ; Start 03/14/18 at 09:00; Stop at 09:00; Status DC Amlodipine Besylate (Norvasc) 10 mg DAILY PO Last administered on 03/16/18 11 :48; Start 03/14/18 at 09:00 Aspirin (Ecotrin) 81 mg DAILY PO Last administered on 03/16/18 11:48; Start 03/14/18 at 09:00 Furosemide (Lasix) 40 mg DAILY PO Last administered on 03/16/18 11:48; Start 03/14/18 at 09:00 Insulin Human Lispro (HumaLOG) 10 units TIDWMEALS SQ Last administered on 03/16at 17:14; Start 03/14/18 at 08:00 Trimethoprim/ Sulfamethoxazole (Bactrim Ds) 1 tab DAILY PO Last administered on 03/16/18 11:48; Start 03/14/18 at 09:00; Stop 03/25/18 at 09:01 Amitriptyline HCl (Elavil) 75 mg QHS PO ; Start 03/13/18 at 21:00; Stop at 21:00; Status DC Carvedilol (Coreg) 25 mg BIDWMEALS PO Last administered on 03/16/18at 17:08; Start 03/13/18 at 19:30 Fluoxetine HCl (PROzac) 20 mg DAILY PO Last administered on 03/16/18 11:48; Start 03/14/18 at 09:00 Insulin Glargine (Lantus) 30 units QHS SQ Last administered on 03/15/18at 21:07 ; Start 03/13/18 at 21:00 Magnesium Oxide (Magnesium Oxide) 400 mg DAILY PO Last administered on 11:48; Start 03/14/18 at 09:00 Potassium Chloride (Klor-Con) 20 meq DAILYWBKFT PO Last administered on at 11:47; Start 03/14/18 at 08:00 Acetaminophen/ Hydrocodone Bitart (Lortab 5/325) 1 tab PRN Q4HRS PRN PO PAIN Last administered on 03/16/18at 16:50; Start 03/13/18 at 19:15 Pantoprazole Sodium (PROTONIX VIAL for IV PUSH) 40 mg DAILYAC IVP Last administered on 03/14/18at 08:34; Start 03/14/18 at 07:30; Stop 03/14/18 at 11 :49; Status DC Lactobacillus Rhamnosus (Culturelle) 1 cap BID PO Last administered on at 11:47; Start 03/14/18 at 09:00 Pantoprazole Sodium (Protonix) 40 mg DAILYAC PO Last administered on at 06:02; Start 03/15/18 at 07:30 Diclofenac Sodium (Voltaren) 1 elroy BID TP Last administered on 03/16/18at 11:51 ; Start 03/14/18 at 16:00 Ondansetron HCl (Zofran) 4 mg PRN Q8HRS PRN IV NAUSEA/VOMITING; Start at 12:45 Potassium Chloride (Klor-Con) 40 meq 1X ONCE PO Last administered on at 17:45; Start 03/15/18 at 14:30; Stop 03/15/18 at 14:31; Status DC Methylprednisolone Acetate (DEPO-Medrol 40MG VIAL) 40 mg 1X ONCE INJ ; Start 03/16/18 at 12:00; Stop 03/16/18 at 12:01; Status DC Methylprednisolone Acetate (DEPO-Medrol 40MG VIAL) 40 mg 1X ONCE INJ ; Start 03/16/18 at 12:00; Stop 03/16/18 at 12:01; Status DC Bupivacaine HCl (Sensorcaine-Mpf 0.25%) 10 ml 1X ONCE IJ ; Start 03/16/18 at 12:00; Stop 03/16/18 at 12:01; Status DC Polysaccharide Iron Complex (Niferex 150) 150 mg BID PO Last administered on at 12:19; Start 03/16/18 at 12:00 Ceftriaxone Sodium 1 gm/ Dextrose 50 ml @ 100 mls/hr Q24H IV ; Start 03/16/18 at 12:45; Stop 03/16/18 at 12:50; Status DC Ceftriaxone Sodium (Rocephin) 1 gm Q24H IVP Last administered on 03/16/18at 16: 51; Start 03/16/18 at 13:00 Active Scripts Active Reported Potassium Chloride 20 Meq Tablet.er 20 Meq PO DAILY Magnesium (Magnesium Oxide) 400 Mg Capsule 1 Cap PO DAILY Amitriptyline Hcl 75 Mg Tablet 1 Tab PO QHS Levemir (Insulin Detemir) 100 Unit/1 Ml Vial 30 Unit SQ HS Aspir-Low (Aspirin) 81 Mg Tablet.dr 1 Tab PO DAILY Carvedilol 25 Mg Tablet 1 Tab PO BID Humalog (Insulin Lispro) 100 Unit/1 Ml Insuln.pen 10 Unit SQ TIDWMEALS Allopurinol 300 Mg Tablet 1 Tab PO DAILY Furosemide 40 Mg Tablet 1 Tab PO DAILY Fluoxetine Hcl 20 Mg Tablet 1 Tab PO DAILY Amlodipine Besylate 10 Mg Tablet 10 Mg PO DAILY Bactrim Ds Tablet (Sulfamethoxazole/Trimethoprim) 1 Each Tablet 1 Tab PO DAILY Vitals/I & O Vital Sign - Last 24 Hours 03/15/18 03/15/18 03/15/18 03/15/18 17:46 17:47 19:00 20:00 Temp 97.1 97.1 Pulse 57 59 Resp 20 B/P (MAP) 135/74 112/64 (80) Pulse Ox 95 99 O2 Delivery Nasal Cannula Nasal Cannula Nasal Cannula O2 Flow Rate 2.0 2.0 03/15/18 03/15/18 03/16/18 03/16/18 22:40 23:01 03:01 03:53 Temp 98.9 97.9 98.9 97.9 Pulse 58 65 Resp 20 20 20 20 B/P (MAP) 142/79 (100) 145/78 (100) Pulse Ox 99 99 100 O2 Delivery Nasal Cannula Nasal Cannula Nasal Cannula Nasal Cannula O2 Flow Rate 2.0 03/16/18 03/16/18 03/16/18 03/16/18 07:00 08:00 11:00 11:45 Temp 98.4 98.0 98.4 98.0 Pulse 68 68 Resp 20 20 18 B/P (MAP) 144/49 (80) 144/76 (98) Pulse Ox 99 100 99 O2 Delivery Nasal Cannula Nasal Cannula Nasal Cannula Nasal Cannula O2 Flow Rate 2.0 2.0 03/16/18 03/16/18 03/16/18 03/16/18 11:46 11:48 12:45 15:00 Temp 98.7 98.7 Pulse 68 68 57 Resp 18 18 B/P (MAP) 144/76 144/76 145/74 (97) Pulse Ox 98 98 O2 Delivery Nasal Cannula Nasal Cannula O2 Flow Rate 2.0 03/16/18 03/16/18 16:50 17:08 Pulse 57 Resp 18 B/P (MAP) 145/74 Pulse Ox 98 O2 Delivery Nasal Cannula O2 Flow Rate 2.0 SANDRA CINTRON MD Mar 16, 2018 17:41
[2018-03-16 19:00] VITALS: BP 120/67
[2018-03-16] MEDS: INSULIN GLARGINE 300 UNITS/3 ML INSULN.PEN. SQ SCH (21:03)
[2018-03-16 23:00] VITALS: BP 135/62
[2018-03-17] MEDS: HYDROcodone/APAP 5/325MG 1 TAB TABLET PO PRN ×2 (02:25→06:27)
[2018-03-17 03:00] VITALS: BP 147/68
[2018-03-17 07:00] VITALS: BP 137/73
[2018-03-17] MEDS ORDERED: DEXTROSE 50% 25 GM / 50ML DISP.SYRIN. IV PRN (08:15)
[2018-03-17] MEDS: SMZ/TMP 800/160MG TABLET. PO SCH (08:47)
[2018-03-17] MEDS: LACTOBACILLUS RHAMNOSUS GG 1 CAPSULE. PO SCH ×2 (08:47→20:59)
[2018-03-17] MEDS: FUROSEMIDE 40 MG TABLET. PO SCH (08:47)
[2018-03-17] MEDS: CARVEDILOL 12.5 MG TABLET. PO SCH ×2 (08:48→17:53)
[2018-03-17] MEDS: PANTOPRAZOLE 40 MG TABLET.DR. PO SCH (08:49)
[2018-03-17] MEDS: ASPIRIN ENTERIC COATED 81 MG TABLET.DR. PO SCH (08:49)
[2018-03-17] MEDS: IRON POLYSACCHARIDE COMPLEX 150 MG CAPSULE PO SCH ×2 (08:49→20:58)
[2018-03-17] MEDS: amLODIPine BESYLATE 10 MG TABLET PO SCH (08:49)
[2018-03-17] MEDS: MAGNESIUM OXIDE 400 MG TABLET PO SCH (08:49)
[2018-03-17] MEDS: FLUoxetine HCL 20 MG CAPSULE PO SCH (08:49)
[2018-03-17] MEDS: POTASSIUM CHLORIDE 20 MEQ TABLET.ER. PO SCH (08:50)
[2018-03-17] MEDS: DICLOFENAC SODIUM 1% TOPICAL GEL 100GM TUBE. TP SCH ×2 (08:52→21:00)
[2018-03-17] MEDS: INSULIN LISPRO 300 UNITS/3 ML INSULN.PEN. SQ SCH ×6 (09:09→17:45)
--- NOTE | 2018-03-17 09:52 | PDOC ---
PROGRESS NOTES Chief Complaint Chief Complaint 1. EPIGASTRIC PAIN WITH DARK STOOLS Acute on chronic back pain, diarrhea with hypokalemia getting better Anemia of chronic disease Diabetes type 2 on insulin-uncontrolled Generalized weakness, Narcotic dependence MOrbid Obesity BMI 63 History of Present Illness History of Present Illness Pain persists, has gotten 15 doses of Lortab and needing some more So far diarrhea seems to be abating Hemodynamically stable, no records of black stools No scopes plan by GI Blood sugars are elevated Still has not worked for ambulated yet Agreeable to rehabilitation or SNU if recommended Plan: Add sliding scale insulin high-dose PT OT Start some tramadol prn Inc lortab to 10 mg doses monitor for further black stools Social work if rehabilitation/SNU recommended by PT Vitals Vitals Vital Signs Date Time Temp Pulse Resp B/P (MAP) Pulse Ox O2 Delivery O2 Flow Rate FiO2 03/17/18 09:04 100 Nasal Cannula 2.0 03/17/18 08:49 69 137/73 03/17/18 07:00 96.9 18 96.9 Physical Exam General: Alert, Oriented X3, Cooperative, No acute distress, mild distress Heart: Regular rate, Normal S1, Normal S2 Lungs: Clear Abdomen: Normal bowel sounds, Soft Extremities: No clubbing, No cyanosis Skin: No significant lesion Labs LABS Laboratory Tests Test 03/16/18 11:42 03/16/18 16:29 03/16/18 20:44 03/17/18 08:11 Glucose (Fingerstick) 145 mg/dL (70-99) 153 mg/dL (70-99) 185 mg/dL (70-99) 159 mg/dL (70-99) Review of Systems Review of Systems As per history of present illness, the rest of ROS 14 point negative Assessment and Plan Assessmemt and Plan Problems Medical Problems: (1) Abdominal pain Status: Acute (2) Anemia Status: Acute (3) Hypokalemia Status: Acute (4) Morbid obesity Status: Acute Comment Review of Relevant I have reviewed the following items miranda (where applicable) has been applied. Labs Laboratory Tests Test 03/15/18 13:24 03/15/18 16:11 03/15/18 20:30 03/15/18 20:56 Glucose (Fingerstick) 227 mg/dL (70-99) 156 mg/dL (70-99) 125 mg/dL (70-99) Clostridium difficile Toxin (PCR) Negative (Negative) Test 03/15/18 22:26 03/16/18 05:20 03/16/18 07:33 03/16/18 11:42 Glucose (Fingerstick) 163 mg/dL (70-99) 144 mg/dL (70-99) 145 mg/dL (70-99) White Blood Count 3.8 x10^3/uL (4.0-11.0) Red Blood Count 3.58 x10^6/uL (3.50-5.40) Hemoglobin 9.7 g/dL (12.0-15.5) Hematocrit 29.6 % (36.0-47.0) Mean Corpuscular Volume 83 fL (79-100) Mean Corpuscular Hemoglobin 27 pg (25-35) Mean Corpuscular Hemoglobin Concent 33 g/dL (31-37) Red Cell Distribution Width 17.3 % (11.5-14.5) Platelet Count 170 x10^3/uL (140-400) Neutrophils (%) (Auto) 66 % (31-73) Lymphocytes (%) (Auto) 23 % (24-48) Monocytes (%) (Auto) 8 % (0-9) Eosinophils (%) (Auto) 3 % (0-3) Basophils (%) (Auto) 1 % (0-3) Neutrophils # (Auto) 2.5 x10^3uL (1.8-7.7) Lymphocytes # (Auto) 0.9 x10^3/uL (1.0-4.8) Monocytes # (Auto) 0.3 x10^3/uL (0.0-1.1) Eosinophils # (Auto) 0.1 x10^3/uL (0.0-0.7) Basophils # (Auto) 0.0 x10^3/uL (0.0-0.2) Sodium Level 140 mmol/L (136-145) Potassium Level 3.6 mmol/L (3.5-5.1) Chloride Level 100 mmol/L (98-107) Carbon Dioxide Level 33 mmol/L (21-32) Anion Gap 7 (6-14) Blood Urea Nitrogen 6 mg/dL (7-20) Creatinine 1.1 mg/dL (0.6-1.0) Estimated GFR (Cockcroft-Gault) 59.1 BUN/Creatinine Ratio 5 (6-20) Glucose Level 147 mg/dL (70-99) Calcium Level 8.6 mg/dL (8.5-10.1) Total Bilirubin 0.3 mg/dL (0.2-1.0) Aspartate Amino Transf (AST/SGOT) 20 U/L (15-37) Alanine Aminotransferase (ALT/SGPT) 16 U/L (14-59) Alkaline Phosphatase 67 U/L (46-116) Total Protein 7.2 g/dL (6.4-8.2) Albumin 3.0 g/dL (3.4-5.0) Albumin/Globulin Ratio 0.7 (1.0-1.7) Test 03/16/18 16:29 03/16/18 20:44 03/17/18 08:11 Glucose (Fingerstick) 153 mg/dL (70-99) 185 mg/dL (70-99) 159 mg/dL (70-99) Laboratory Tests Test 03/16/18 11:42 03/16/18 16:29 03/16/18 20:44 03/17/18 08:11 Glucose (Fingerstick) 145 mg/dL (70-99) 153 mg/dL (70-99) 185 mg/dL (70-99) 159 mg/dL (70-99) Microbiology 03/15/18 Fecal Leukocyte Stain - Final, Complete 03/13/18 Urine Culture - Final, Complete 03/13/18 Urine Culture Result 1 (HOWIE) - Final, Complete 03/13/18 Antimicrobic Susceptibility - Final, Complete Medications Current Medications Magnesium Sulfate 50 ml @ 25 mls/hr 1X ONCE IV Last administered on at 22:40; Start 03/13/18 at 12:00; Stop 03/13/18 at 13:59; Status DC Potassium Chloride (Klor-Con) 40 meq 1X ONCE PO Last administered on at 14:17; Start 03/13/18 at 12:00; Stop 03/13/18 at 12:03; Status DC Potassium Chloride/Water 50 ml @ 25 mls/hr Q2H IV Last administered on at 22:03; Start 03/13/18 at 14:00; Stop 03/13/18 at 17:59; Status DC Lidocaine/Sodium Bicarbonate (Buffered Lidocaine 1%) 3 ml STK-MED ONCE .ROUTE ; Start 03/13/18 at 15:54; Stop 03/13/18 at 15:55; Status DC Lidocaine/Sodium Bicarbonate (Buffered Lidocaine 1%) 3 ml 1X ONCE INJ Last administered on 03/13/18at 16:15; Start 03/13/18 at 16:15; Stop 03/13/18 at 16 :17; Status DC Allopurinol (Zyloprim) 300 mg DAILY PO ; Start 03/14/18 at 09:00; Stop at 09:00; Status DC Amlodipine Besylate (Norvasc) 10 mg DAILY PO Last administered on 03/17/18at 08 :49; Start 03/14/18 at 09:00 Aspirin (Ecotrin) 81 mg DAILY PO Last administered on 03/17/18at 08:49; Start 03/14/18 at 09:00 Furosemide (Lasix) 40 mg DAILY PO Last administered on 03/17/18at 08:47; Start 03/14/18 at 09:00 Insulin Human Lispro (HumaLOG) 10 units TIDWMEALS SQ Last administered on 03/17at 09:09; Start 03/14/18 at 08:00 Trimethoprim/ Sulfamethoxazole (Bactrim Ds) 1 tab DAILY PO Last administered on 03/17/18at 08:47; Start 03/14/18 at 09:00; Stop 03/25/18 at 09:01 Amitriptyline HCl (Elavil) 75 mg QHS PO ; Start 03/13/18 at 21:00; Stop at 21:00; Status DC Carvedilol (Coreg) 25 mg BIDWMEALS PO Last administered on 03/17/18at 08:48; Start 03/13/18 at 19:30 Fluoxetine HCl (PROzac) 20 mg DAILY PO Last administered on 03/17/18at 08:49; Start 03/14/18 at 09:00 Insulin Glargine (Lantus) 30 units QHS SQ Last administered on 03/16/18at 21:03 ; Start 03/13/18 at 21:00 Magnesium Oxide (Magnesium Oxide) 400 mg DAILY PO Last administered on at 08:49; Start 03/14/18 at 09:00 Potassium Chloride (Klor-Con) 20 meq DAILYWBKFT PO Last administered on at 08:50; Start 03/14/18 at 08:00 Acetaminophen/ Hydrocodone Bitart (Lortab 5/325) 1 tab PRN Q4HRS PRN PO PAIN Last administered on 03/17/18at 06:27; Start 03/13/18 at 19:15 Pantoprazole Sodium (PROTONIX VIAL for IV PUSH) 40 mg DAILYAC IVP Last administered on 03/14/18at 08:34; Start 03/14/18 at 07:30; Stop 03/14/18 at 11 :49; Status DC Lactobacillus Rhamnosus (Culturelle) 1 cap BID PO Last administered on at 08:47; Start 03/14/18 at 09:00 Pantoprazole Sodium (Protonix) 40 mg DAILYAC PO Last administered on at 08:49; Start 03/15/18 at 07:30 Diclofenac Sodium (Voltaren) 1 elroy BID TP Last administered on 03/17/18at 08:52 ; Start 03/14/18 at 16:00 Ondansetron HCl (Zofran) 4 mg PRN Q8HRS PRN IV NAUSEA/VOMITING; Start at 12:45 Potassium Chloride (Klor-Con) 40 meq 1X ONCE PO Last administered on at 17:45; Start 03/15/18 at 14:30; Stop 03/15/18 at 14:31; Status DC Methylprednisolone Acetate (DEPO-Medrol 40MG VIAL) 40 mg 1X ONCE INJ ; Start 03/16/18 at 12:00; Stop 03/16/18 at 12:01; Status DC Methylprednisolone Acetate (DEPO-Medrol 40MG VIAL) 40 mg 1X ONCE INJ ; Start 03/16/18 at 12:00; Stop 03/16/18 at 12:01; Status DC Bupivacaine HCl (Sensorcaine-Mpf 0.25%) 10 ml 1X ONCE IJ ; Start 03/16/18 at 12:00; Stop 03/16/18 at 12:01; Status DC Polysaccharide Iron Complex (Niferex 150) 150 mg BID PO Last administered on at 08:49; Start 03/16/18 at 12:00 Ceftriaxone Sodium 1 gm/ Dextrose 50 ml @ 100 mls/hr Q24H IV ; Start 03/16/18 at 12:45; Stop 03/16/18 at 12:50; Status DC Ceftriaxone Sodium (Rocephin) 1 gm Q24H IVP Last administered on 03/16/18at 16: 51; Start 03/16/18 at 13:00 Insulin Human Lispro (HumaLOG) 0-9 UNITS TIDWMEALS SQ Last administered on at 09:10; Start 03/17/18 at 08:30 Dextrose (Dextrose 50%-Water Syringe) 12.5 gm PRN Q15MIN PRN IV SEE COMMENTS; Start 03/17/18 at 08:15 Active Scripts Active Reported Potassium Chloride 20 Meq Tablet.er 20 Meq PO DAILY Magnesium (Magnesium Oxide) 400 Mg Capsule 1 Cap PO DAILY Amitriptyline Hcl 75 Mg Tablet 1 Tab PO QHS Levemir (Insulin Detemir) 100 Unit/1 Ml Vial 30 Unit SQ HS Aspir-Low (Aspirin) 81 Mg Tablet.dr 1 Tab PO DAILY Carvedilol 25 Mg Tablet 1 Tab PO BID Humalog (Insulin Lispro) 100 Unit/1 Ml Insuln.pen 10 Unit SQ TIDWMEALS Allopurinol 300 Mg Tablet 1 Tab PO DAILY Furosemide 40 Mg Tablet 1 Tab PO DAILY Fluoxetine Hcl 20 Mg Tablet 1 Tab PO DAILY Amlodipine Besylate 10 Mg Tablet 10 Mg PO DAILY Bactrim Ds Tablet (Sulfamethoxazole/Trimethoprim) 1 Each Tablet 1 Tab PO DAILY Vitals/I & O Vital Sign - Last 24 Hours 03/16/18 03/16/18 03/16/18 03/16/18 11:00 11:45 11:46 11:48 Temp 98.0 98.0 Pulse 68 68 68 Resp 20 18 B/P (MAP) 144/76 (98) 144/76 144/76 Pulse Ox 100 99 O2 Delivery Nasal Cannula Nasal Cannula O2 Flow Rate 2.0 03/16/18 03/16/18 03/16/18 03/16/18 12:45 15:00 16:50 17:08 Temp 98.7 98.7 Pulse 57 57 Resp 18 18 18 B/P (MAP) 145/74 (97) 145/74 Pulse Ox 98 98 O2 Delivery Nasal Cannula Nasal Cannula O2 Flow Rate 2.0 03/16/18 03/16/18 03/16/18 03/17/18 19:00 20:00 23:00 02:25 Temp 98.2 98.0 98.2 98.0 Pulse 57 55 Resp 18 18 B/P (MAP) 120/67 (84) 135/62 (86) Pulse Ox 99 100 O2 Delivery Nasal Cannula Nasal Cannula Nasal Cannula Room Air O2 Flow Rate 2.0 2.0 2.0 03/17/18 03/17/18 03/17/18 03/17/18 03:00 06:27 07:00 08:48 Temp 98.3 96.9 98.3 96.9 Pulse 69 69 69 Resp 18 18 B/P (MAP) 147/68 (94) 137/73 (94) 137/73 Pulse Ox 100 99 O2 Delivery Nasal Cannula Nasal Cannula Nasal Cannula O2 Flow Rate 2.0 2.0 03/17/18 03/17/18 08:49 09:04 Pulse 69 B/P (MAP) 137/73 Pulse Ox 100 O2 Delivery Nasal Cannula O2 Flow Rate 2.0 Intake and Output 03/16/18 03/16/18 03/17/18 15:00 23:00 07:00 Intake Total 1720 ml 440 ml Output Total 1000 ml Balance 720 ml 440 ml ALE SOLANO MD Mar 17, 2018 09:52
[2018-03-17] MEDS ORDERED: NAPROXEN 250 MG TABLET PO SCH (10:00)
[2018-03-17] MEDS: HYDROcodone/APAP 10/325 1 TAB TABLET PO PRN ×3 (10:24→22:29)
[2018-03-17 11:00] VITALS: BP 108/55
[2018-03-17 15:00] VITALS: BP 116/61
[2018-03-17 19:10] VITALS: BP 129/63
[2018-03-17] MEDS: traMADol 50 MG TABLET PO PRN (20:59)
[2018-03-17] MEDS: INSULIN GLARGINE 300 UNITS/3 ML INSULN.PEN. SQ SCH (21:13)
[2018-03-17 23:58] VITALS: BP 146/71
[2018-03-18] VITALS (7 sets, daily range): BP systolic 130–151; BP diastolic 64–75
[2018-03-18] MEDS: HYDROcodone/APAP 5/325MG 1 TAB TABLET PO PRN (00:32)
[2018-03-18] MEDS: HYDROcodone/APAP 10/325 1 TAB TABLET PO PRN ×3 (05:14→22:50)
[2018-03-18] MEDS: INSULIN LISPRO 300 UNITS/3 ML INSULN.PEN. SQ SCH ×6 (08:00→16:52)
[2018-03-18] MEDS ORDERED: ONDANSETRON PF 4 MG/2 ML VIAL. IV PRN (08:30)
[2018-03-18] MEDS: DICLOFENAC SODIUM 1% TOPICAL GEL 100GM TUBE. TP SCH ×2 (09:16→21:02)
[2018-03-18] MEDS: PANTOPRAZOLE 40 MG TABLET.DR. PO SCH (09:17)
[2018-03-18] MEDS: FLUoxetine HCL 20 MG CAPSULE PO SCH (09:17)
[2018-03-18] MEDS: LIDOCAINE (700MG/PATCH) PATCH. TD SCH (09:17)
[2018-03-18] MEDS: IRON POLYSACCHARIDE COMPLEX 150 MG CAPSULE PO SCH ×2 (09:18→21:01)
[2018-03-18] MEDS: FUROSEMIDE 40 MG TABLET. PO SCH (09:18)
[2018-03-18] MEDS: SMZ/TMP 800/160MG TABLET. PO SCH (09:18)
[2018-03-18] MEDS: CARVEDILOL 12.5 MG TABLET. PO SCH ×2 (09:18→16:32)
[2018-03-18] MEDS: LACTOBACILLUS RHAMNOSUS GG 1 CAPSULE. PO SCH ×2 (09:18→21:01)
[2018-03-18] MEDS: MAGNESIUM OXIDE 400 MG TABLET PO SCH (09:18)
[2018-03-18] MEDS: amLODIPine BESYLATE 10 MG TABLET PO SCH (09:18)
[2018-03-18] MEDS: POTASSIUM CHLORIDE 20 MEQ TABLET.ER. PO SCH (09:18)
--- NOTE | 2018-03-18 09:47 | PDOC ---
PROGRESS NOTES Chief Complaint Chief Complaint EPIGASTRIC PAIN WITH DARK STOOLS - NO MORE RECURRENCE Acute on chronic back pain, s/p injections by physiatry diarrhea with hypokalemia RESOLVED ACUTE ON CHRONIC NAUSEA r/o GASTROPARESIS Diabetes type 2 on insulin-uncontrolled -unknown [id number] Generalized weakness, - has HH and 24/hr care MOrbid Obesity BMI 63 - bariatric bed History of Present Illness History of Present Illness Was unable to produce PICC with physical therapy because of postop pain She claims back pain much better since injections by physiatry Still dry heaving/chronic problem for her Blood sugars are much better with adjustments here throughout her stay Plan: Could not help but wonder maybe she has undiagnosed gastroparesis Trial of Reglan Gastric emptying test Check hemoglobin A1c, check TSH-I reviewed on chart she has not had 1 recently Trial of Lidoderm patch I did increase pain medicines yesterday-narcs will not help gastroparesis too Dw her and RN at bedside Vitals Vitals Vital Signs Date Time Temp Pulse Resp B/P (MAP) Pulse Ox O2 Delivery O2 Flow Rate FiO2 03/18/18 07:36 97.8 65 18 144/75 (98) 100 Nasal Cannula 2.0 97.8 Physical Exam General: Alert, Oriented X3, Cooperative, No acute distress, mild distress Heart: Regular rate, Normal S1, Normal S2 Lungs: Clear Abdomen: Normal bowel sounds, Soft Extremities: No clubbing, No cyanosis Skin: No significant lesion Labs LABS Laboratory Tests Test 03/17/18 12:10 03/17/18 17:00 03/17/18 21:08 03/18/18 07:39 Glucose (Fingerstick) 203 mg/dL (70-99) 131 mg/dL (70-99) 147 mg/dL (70-99) 141 mg/dL (70-99) Review of Systems Review of Systems POS for Nausea, dry heaving, but pain, back pain, abdominal pain Assessment and Plan Assessmemt and Plan Problems Medical Problems: (1) Abdominal pain Status: Acute (2) Anemia Status: Acute (3) Hypokalemia Status: Acute (4) Morbid obesity Status: Acute Comment Review of Relevant I have reviewed the following items miranda (where applicable) has been applied. Labs Laboratory Tests Test 03/16/18 11:42 03/16/18 16:29 03/16/18 20:44 03/17/18 08:11 Glucose (Fingerstick) 145 mg/dL (70-99) 153 mg/dL (70-99) 185 mg/dL (70-99) 159 mg/dL (70-99) Test 03/17/18 12:10 03/17/18 17:00 03/17/18 21:08 03/18/18 07:39 Glucose (Fingerstick) 203 mg/dL (70-99) 131 mg/dL (70-99) 147 mg/dL (70-99) 141 mg/dL (70-99) Laboratory Tests Test 03/17/18 12:10 03/17/18 17:00 03/17/18 21:08 03/18/18 07:39 Glucose (Fingerstick) 203 mg/dL (70-99) 131 mg/dL (70-99) 147 mg/dL (70-99) 141 mg/dL (70-99) Microbiology 03/15/18 Fecal Leukocyte Stain - Final, Complete 03/13/18 Urine Culture - Final, Complete 03/13/18 Urine Culture Result 1 (HOWIE) - Final, Complete 03/13/18 Antimicrobic Susceptibility - Final, Complete Medications Current Medications Magnesium Sulfate 50 ml @ 25 mls/hr 1X ONCE IV Last administered on at 22:40; Start 03/13/18 at 12:00; Stop 03/13/18 at 13:59; Status DC Potassium Chloride (Klor-Con) 40 meq 1X ONCE PO Last administered on at 14:17; Start 03/13/18 at 12:00; Stop 03/13/18 at 12:03; Status DC Potassium Chloride/Water 50 ml @ 25 mls/hr Q2H IV Last administered on at 22:03; Start 03/13/18 at 14:00; Stop 03/13/18 at 17:59; Status DC Lidocaine/Sodium Bicarbonate (Buffered Lidocaine 1%) 3 ml STK-MED ONCE .ROUTE ; Start 03/13/18 at 15:54; Stop 03/13/18 at 15:55; Status DC Lidocaine/Sodium Bicarbonate (Buffered Lidocaine 1%) 3 ml 1X ONCE INJ Last administered on 03/13/18at 16:15; Start 03/13/18 at 16:15; Stop 03/13/18 at 16 :17; Status DC Allopurinol (Zyloprim) 300 mg DAILY PO ; Start 03/14/18 at 09:00; Stop at 09:00; Status DC Amlodipine Besylate (Norvasc) 10 mg DAILY PO Last administered on 03/17/18 08 :49; Start 03/14/18 at 09:00 Aspirin (Ecotrin) 81 mg DAILY PO Last administered on 03/17/18 08:49; Start 03/14/18 at 09:00; Stop 03/17/18 at 09:54; Status DC Furosemide (Lasix) 40 mg DAILY PO Last administered on 03/17/18 08:47; Start 03/14/18 at 09:00 Insulin Human Lispro (HumaLOG) 10 units TIDWMEALS SQ Last administered on 03/17at 17:45; Start 03/14/18 at 08:00 Trimethoprim/ Sulfamethoxazole (Bactrim Ds) 1 tab DAILY PO Last administered on 03/17/18 08:47; Start 03/14/18 at 09:00; Stop 03/25/18 at 09:01 Amitriptyline HCl (Elavil) 75 mg QHS PO ; Start 03/13/18 at 21:00; Stop at 21:00; Status DC Carvedilol (Coreg) 25 mg BIDWMEALS PO Last administered on 03/17/18at 17:53; Start 03/13/18 at 19:30 Fluoxetine HCl (PROzac) 20 mg DAILY PO Last administered on 03/17/18at 08:49; Start 03/14/18 at 09:00 Insulin Glargine (Lantus) 30 units QHS SQ Last administered on 03/17/18at 21:13 ; Start 03/13/18 at 21:00 Magnesium Oxide (Magnesium Oxide) 400 mg DAILY PO Last administered on 08:49; Start 03/14/18 at 09:00 Potassium Chloride (Klor-Con) 20 meq DAILYWBKFT PO Last administered on at 08:50; Start 03/14/18 at 08:00 Acetaminophen/ Hydrocodone Bitart (Lortab 5/325) 1 tab PRN Q4HRS PRN PO PAIN MILD Last administered on 03/18/18at 00:32; Start 03/13/18 at 19:15 Pantoprazole Sodium (PROTONIX VIAL for IV PUSH) 40 mg DAILYAC IVP Last administered on 03/14/18at 08:34; Start 03/14/18 at 07:30; Stop 03/14/18 at 11 :49; Status DC Lactobacillus Rhamnosus (Culturelle) 1 cap BID PO Last administered on at 20:59; Start 03/14/18 at 09:00 Pantoprazole Sodium (Protonix) 40 mg DAILYAC PO Last administered on at 08:49; Start 03/15/18 at 07:30 Diclofenac Sodium (Voltaren) 1 elroy BID TP Last administered on 03/17/18at 21:00 ; Start 03/14/18 at 16:00 Ondansetron HCl (Zofran) 4 mg PRN Q8HRS PRN IV NAUSEA/VOMITING; Start at 12:45; Stop 03/18/18 at 08:16; Status DC Potassium Chloride (Klor-Con) 40 meq 1X ONCE PO Last administered on at 17:45; Start 03/15/18 at 14:30; Stop 03/15/18 at 14:31; Status DC Methylprednisolone Acetate (DEPO-Medrol 40MG VIAL) 40 mg 1X ONCE INJ ; Start 03/16/18 at 12:00; Stop 03/16/18 at 12:01; Status DC Methylprednisolone Acetate (DEPO-Medrol 40MG VIAL) 40 mg 1X ONCE INJ ; Start 03/16/18 at 12:00; Stop 03/16/18 at 12:01; Status DC Bupivacaine HCl (Sensorcaine-Mpf 0.25%) 10 ml 1X ONCE IJ ; Start 03/16/18 at 12:00; Stop 03/16/18 at 12:01; Status DC Polysaccharide Iron Complex (Niferex 150) 150 mg BID PO Last administered on at 20:58; Start 03/16/18 at 12:00 Ceftriaxone Sodium 1 gm/ Dextrose 50 ml @ 100 mls/hr Q24H IV ; Start 03/16/18 at 12:45; Stop 03/16/18 at 12:50; Status DC Ceftriaxone Sodium (Rocephin) 1 gm Q24H IVP Last administered on 03/16/18at 16: 51; Start 03/16/18 at 13:00; Stop 03/17/18 at 10:44; Status DC Insulin Human Lispro (HumaLOG) 0-9 UNITS TIDWMEALS SQ Last administered on at 12:22; Start 03/17/18 at 08:30 Dextrose (Dextrose 50%-Water Syringe) 12.5 gm PRN Q15MIN PRN IV SEE COMMENTS; Start 03/17/18 at 08:15 Acetaminophen/ Hydrocodone Bitart (Lortab 10/325) 1 tab PRN Q6HRS PRN PO PAIN SEVERE Last administered on 03/18/18at 05:14; Start 03/17/18 at 10:00 Naproxen (Naprosyn) 250 mg BID PO ; Start 03/17/18 at 10:00; Stop 03/17/18 at 10:00; Status DC Tramadol HCl (Ultram) 50 mg PRN Q6HRS PRN PO PAIN MODERATE Last administered on 03/17/18at 20:59; Start 03/17/18 at 10:00 Lidocaine (Lidoderm) 1 patch DAILY TD ; Start 03/18/18 at 09:00 Miscellaneous (Lidoderm Patch Removal) 1 ea QHS MC ; Start 03/18/18 at 21:00 Ondansetron HCl (Zofran) 4 mg PRN Q6HRS PRN IV NAUSEA/VOMITING; Start at 08:30 Active Scripts Active Reported Potassium Chloride 20 Meq Tablet.er 20 Meq PO DAILY Magnesium (Magnesium Oxide) 400 Mg Capsule 1 Cap PO DAILY Amitriptyline Hcl 75 Mg Tablet 1 Tab PO QHS Levemir (Insulin Detemir) 100 Unit/1 Ml Vial 30 Unit SQ HS Aspir-Low (Aspirin) 81 Mg Tablet.dr 1 Tab PO DAILY Carvedilol 25 Mg Tablet 1 Tab PO BID Humalog (Insulin Lispro) 100 Unit/1 Ml Insuln.pen 10 Unit SQ TIDWMEALS Allopurinol 300 Mg Tablet 1 Tab PO DAILY Furosemide 40 Mg Tablet 1 Tab PO DAILY Fluoxetine Hcl 20 Mg Tablet 1 Tab PO DAILY Amlodipine Besylate 10 Mg Tablet 10 Mg PO DAILY Bactrim Ds Tablet (Sulfamethoxazole/Trimethoprim) 1 Each Tablet 1 Tab PO DAILY Vitals/I & O Vital Sign - Last 24 Hours 03/17/18 03/17/18 03/17/18 10/27/18 10:24 11:00 15:00 16:28 Temp 98.2 98.2 98.2 98.2 Pulse 61 58 Resp 18 18 B/P (MAP) 108/55 (72) 116/61 (79) Pulse Ox 100 98 100 100 O2 Delivery Nasal Cannula Nasal Cannula Nasal Cannula Nasal Cannula O2 Flow Rate 2.0 2.0 2.0 2.0 03/17/18 03/17/18 03/17/18 03/17/18 17:53 19:10 19:38 20:59 Temp 97.7 97.7 Pulse 64 59 Resp 18 18 B/P (MAP) 158/79 129/63 (85) Pulse Ox 99 99 O2 Delivery Nasal Cannula Nasal Cannula Nasal Cannula O2 Flow Rate 2.0 2.0 2.0 03/17/18 03/17/18 03/17/18 03/18/18 21:59 22:29 23:58 00:32 Temp 98.6 98.6 Pulse 64 Resp 18 18 18 18 B/P (MAP) 146/71 (96) Pulse Ox 99 99 99 99 O2 Delivery Nasal Cannula Nasal Cannula Nasal Cannula Nasal Cannula O2 Flow Rate 2.0 2.0 2.0 2.0 03/18/18 03/18/18 03/18/18 03/18/18 03:10 05:14 06:14 07:36 Temp 98.2 97.8 98.2 97.8 Pulse 72 65 Resp 18 18 18 18 B/P (MAP) 130/66 (87) 144/75 (98) Pulse Ox 98 98 98 100 O2 Delivery Nasal Cannula Nasal Cannula Nasal Cannula Nasal Cannula O2 Flow Rate 2.0 2.0 2.0 2.0 Intake and Output 03/17/18 03/17/18 03/18/18 15:00 23:00 07:00 Intake Total 550 ml Balance 550 ml ALE SOLANO MD Mar 18, 2018 09:47
[2018-03-18] MEDS: METOCLOPRAMIDE 5 MG TABLET. PO SCH ×2 (12:09→16:32)
[2018-03-18] MEDS: PATCH REMOVAL. MC SCH (21:00)
[2018-03-18] MEDS: traMADol 50 MG TABLET PO PRN (21:01)
[2018-03-18] MEDS: INSULIN GLARGINE 300 UNITS/3 ML INSULN.PEN. SQ SCH (21:48)
[2018-03-19] VITALS (7 sets, daily range): BP systolic 105–155; BP diastolic 61–77
[2018-03-19] MEDS: METOCLOPRAMIDE 5 MG TABLET. PO SCH ×3 (07:30→17:19)
[2018-03-19] MEDS: INSULIN LISPRO 300 UNITS/3 ML INSULN.PEN. SQ SCH ×6 (08:00→17:00)
--- NOTE | 2018-03-19 10:13 | PDOC ---
PROGRESS NOTES Subjective Subjective She admits continued lower abdominal discomfort. Objective Objective Vital Signs Date Time Temp Pulse Resp B/P (MAP) Pulse Ox O2 Delivery O2 Flow Rate FiO2 03/19/18 07:00 97.6 52 18 144/68 (93) 100 Nasal Cannula 97.6 03/19/18 03:00 2.0 Intake and Output 03/19/18 07:00 Intake Total 1220 ml Output Total 100 ml Balance 1120 ml Intake Oral 1220 ml Output Urine Total 100 ml # Voids 10 Physical Exam Physical Exam She is supine in bed and she needs help with bed mobility and transfers. Assessment Assessment Problems Medical Problems: (1) Abdominal pain Status: Acute (2) Anemia Status: Acute (3) Hypokalemia Status: Acute (4) Morbid obesity Status: Acute Plan Plan of Care To continue present physical therapy follow up as tolerated. Comment Review of Relevant I have reviewed the following items miranda (where applicable) has been applied. Labs Laboratory Tests Test 03/17/18 12:10 03/17/18 17:00 03/17/18 21:08 03/18/18 07:39 Glucose (Fingerstick) 203 mg/dL (70-99) 131 mg/dL (70-99) 147 mg/dL (70-99) 141 mg/dL (70-99) Test 03/18/18 11:38 03/18/18 12:30 03/18/18 16:33 03/18/18 21:22 Glucose (Fingerstick) 178 mg/dL (70-99) 166 mg/dL (70-99) 190 mg/dL (70-99) Thyroid Stimulating Hormone (TSH) 1.066 uIU/mL (0.358-3.74) Test 03/19/18 08:18 Glucose (Fingerstick) 170 mg/dL (70-99) Laboratory Tests Test 03/18/18 11:38 03/18/18 12:30 03/18/18 16:33 03/18/18 21:22 Glucose (Fingerstick) 178 mg/dL (70-99) 166 mg/dL (70-99) 190 mg/dL (70-99) Thyroid Stimulating Hormone (TSH) 1.066 uIU/mL (0.358-3.74) Test 03/19/18 08:18 Glucose (Fingerstick) 170 mg/dL (70-99) Microbiology 03/15/18 Fecal Leukocyte Stain - Final, Complete 03/13/18 Urine Culture - Final, Complete 03/13/18 Urine Culture Result 1 (HOWIE) - Final, Complete 03/13/18 Antimicrobic Susceptibility - Final, Complete Medications Current Medications Magnesium Sulfate 50 ml @ 25 mls/hr 1X ONCE IV Last administered on at 22:40; Start 03/13/18 at 12:00; Stop 03/13/18 at 13:59; Status DC Potassium Chloride (Klor-Con) 40 meq 1X ONCE PO Last administered on at 14:17; Start 03/13/18 at 12:00; Stop 03/13/18 at 12:03; Status DC Potassium Chloride/Water 50 ml @ 25 mls/hr Q2H IV Last administered on at 22:03; Start 03/13/18 at 14:00; Stop 03/13/18 at 17:59; Status DC Lidocaine/Sodium Bicarbonate (Buffered Lidocaine 1%) 3 ml STK-MED ONCE .ROUTE ; Start 03/13/18 at 15:54; Stop 03/13/18 at 15:55; Status DC Lidocaine/Sodium Bicarbonate (Buffered Lidocaine 1%) 3 ml 1X ONCE INJ Last administered on 03/13/18at 16:15; Start 03/13/18 at 16:15; Stop 03/13/18 at 16 :17; Status DC Allopurinol (Zyloprim) 300 mg DAILY PO ; Start 03/14/18 at 09:00; Stop at 09:00; Status DC Amlodipine Besylate (Norvasc) 10 mg DAILY PO Last administered on 03/18/18at 09 :18; Start 03/14/18 at 09:00 Aspirin (Ecotrin) 81 mg DAILY PO Last administered on 03/17/18at 08:49; Start 03/14/18 at 09:00; Stop 03/17/18 at 09:54; Status DC Furosemide (Lasix) 40 mg DAILY PO Last administered on 03/18/18at 09:18; Start 03/14/18 at 09:00 Insulin Human Lispro (HumaLOG) 10 units TIDWMEALS SQ Last administered on 03/18at 16:52; Start 03/14/18 at 08:00 Trimethoprim/ Sulfamethoxazole (Bactrim Ds) 1 tab DAILY PO Last administered on 03/18/18 09:18; Start 03/14/18 at 09:00; Stop 03/25/18 at 09:01 Amitriptyline HCl (Elavil) 75 mg QHS PO ; Start 03/13/18 at 21:00; Stop at 21:00; Status DC Carvedilol (Coreg) 25 mg BIDWMEALS PO Last administered on 03/18/18 16:32; Start 03/13/18 at 19:30 Fluoxetine HCl (PROzac) 20 mg DAILY PO Last administered on 03/18/18 09:17; Start 03/14/18 at 09:00 Insulin Glargine (Lantus) 30 units QHS SQ Last administered on 03/18/18 21:48 ; Start 03/13/18 at 21:00 Magnesium Oxide (Magnesium Oxide) 400 mg DAILY PO Last administered on 09:18; Start 03/14/18 at 09:00 Potassium Chloride (Klor-Con) 20 meq DAILYWBKFT PO Last administered on 09:18; Start 03/14/18 at 08:00 Acetaminophen/ Hydrocodone Bitart (Lortab 5/325) 1 tab PRN Q4HRS PRN PO PAIN MILD Last administered on 03/18/18 00:32; Start 03/13/18 at 19:15 Pantoprazole Sodium (PROTONIX VIAL for IV PUSH) 40 mg DAILYAC IVP Last administered on 03/14/18at 08:34; Start 03/14/18 at 07:30; Stop 03/14/18 at 11 :49; Status DC Lactobacillus Rhamnosus (Culturelle) 1 cap BID PO Last administered on 21:01; Start 03/14/18 at 09:00 Pantoprazole Sodium (Protonix) 40 mg DAILYAC PO Last administered on 09:17; Start 03/15/18 at 07:30 Diclofenac Sodium (Voltaren) 1 elroy BID TP Last administered on 03/18/18 21:02 ; Start 03/14/18 at 16:00 Ondansetron HCl (Zofran) 4 mg PRN Q8HRS PRN IV NAUSEA/VOMITING; Start at 12:45; Stop 03/18/18 at 08:16; Status DC Potassium Chloride (Klor-Con) 40 meq 1X ONCE PO Last administered on at 17:45; Start 03/15/18 at 14:30; Stop 03/15/18 at 14:31; Status DC Methylprednisolone Acetate (DEPO-Medrol 40MG VIAL) 40 mg 1X ONCE INJ ; Start 03/16/18 at 12:00; Stop 03/16/18 at 12:01; Status DC Methylprednisolone Acetate (DEPO-Medrol 40MG VIAL) 40 mg 1X ONCE INJ ; Start 03/16/18 at 12:00; Stop 03/16/18 at 12:01; Status DC Bupivacaine HCl (Sensorcaine-Mpf 0.25%) 10 ml 1X ONCE IJ ; Start 03/16/18 at 12:00; Stop 03/16/18 at 12:01; Status DC Polysaccharide Iron Complex (Niferex 150) 150 mg BID PO Last administered on at 21:01; Start 03/16/18 at 12:00 Ceftriaxone Sodium 1 gm/ Dextrose 50 ml @ 100 mls/hr Q24H IV ; Start 03/16/18 at 12:45; Stop 03/16/18 at 12:50; Status DC Ceftriaxone Sodium (Rocephin) 1 gm Q24H IVP Last administered on 03/16/18at 16: 51; Start 03/16/18 at 13:00; Stop 03/17/18 at 10:44; Status DC Insulin Human Lispro (HumaLOG) 0-9 UNITS TIDWMEALS SQ Last administered on at 16:52; Start 03/17/18 at 08:30 Dextrose (Dextrose 50%-Water Syringe) 12.5 gm PRN Q15MIN PRN IV SEE COMMENTS; Start 03/17/18 at 08:15 Acetaminophen/ Hydrocodone Bitart (Lortab 10/325) 1 tab PRN Q6HRS PRN PO PAIN SEVERE Last administered on 03/18/18at 22:50; Start 03/17/18 at 10:00 Naproxen (Naprosyn) 250 mg BID PO ; Start 03/17/18 at 10:00; Stop 03/17/18 at 10:00; Status DC Tramadol HCl (Ultram) 50 mg PRN Q6HRS PRN PO PAIN MODERATE Last administered on 03/18/18at 21:01; Start 03/17/18 at 10:00 Lidocaine (Lidoderm) 1 patch DAILY TD Last administered on 03/18/18at 09:17; Start 03/18/18 at 09:00 Miscellaneous (Lidoderm Patch Removal) 1 ea QHS MC Last administered on at 21:00; Start 03/18/18 at 21:00 Ondansetron HCl (Zofran) 4 mg PRN Q6HRS PRN IV NAUSEA/VOMITING Last administered on 03/18/18at 09:19; Start 03/18/18 at 08:30 Metoclopramide HCl (Reglan) 5 mg TIDAC PO Last administered on 03/18/18at 16:32 ; Start 03/18/18 at 11:30 Active Scripts Active Reported Potassium Chloride 20 Meq Tablet.er 20 Meq PO DAILY Magnesium (Magnesium Oxide) 400 Mg Capsule 1 Cap PO DAILY Amitriptyline Hcl 75 Mg Tablet 1 Tab PO QHS Levemir (Insulin Detemir) 100 Unit/1 Ml Vial 30 Unit SQ HS Aspir-Low (Aspirin) 81 Mg Tablet.dr 1 Tab PO DAILY Carvedilol 25 Mg Tablet 1 Tab PO BID Humalog (Insulin Lispro) 100 Unit/1 Ml Insuln.pen 10 Unit SQ TIDWMEALS Allopurinol 300 Mg Tablet 1 Tab PO DAILY Furosemide 40 Mg Tablet 1 Tab PO DAILY Fluoxetine Hcl 20 Mg Tablet 1 Tab PO DAILY Amlodipine Besylate 10 Mg Tablet 10 Mg PO DAILY Bactrim Ds Tablet (Sulfamethoxazole/Trimethoprim) 1 Each Tablet 1 Tab PO DAILY Vitals/I & O Vital Sign - Last 24 Hours 03/18/18 03/18/18 03/18/18 03/18/18 10:53 15:42 16:30 16:32 Temp 97.6 98.9 98.8 97.6 98.9 98.8 Pulse 60 60 60 60 Resp 18 18 18 B/P (MAP) 132/64 (86) 134/67 (89) 136/69 (91) 136/69 Pulse Ox 98 99 98 O2 Delivery Nasal Cannula Nasal Cannula Nasal Cannula O2 Flow Rate 2.0 2.0 2.0 10/28/18 10/28/18 10/28/18 10/28/18 16:32 19:00 20:00 21:01 Temp 98.1 98.1 Pulse 66 Resp 18 18 B/P (MAP) 151/65 (93) Pulse Ox 98 97 97 O2 Delivery Nasal Cannula Nasal Cannula Nasal Cannula Nasal Cannula O2 Flow Rate 2.0 2.0 2.0 2.0 03/18/18 03/18/18 03/18/18 03/18/18 22:01 22:50 23:00 23:50 Temp 97.5 97.5 Pulse 67 Resp 18 18 18 B/P (MAP) 146/73 (97) Pulse Ox 97 97 95 95 O2 Delivery Nasal Cannula Nasal Cannula Nasal Cannula Nasal Cannula O2 Flow Rate 2.0 2.0 2.0 2.0 03/19/18 03/19/18 03:00 07:00 Temp 98.0 97.6 98.0 97.6 Pulse 63 52 Resp 18 18 B/P (MAP) 155/75 (101) 144/68 (93) Pulse Ox 93 100 O2 Delivery Nasal Cannula Nasal Cannula O2 Flow Rate 2.0 Intake and Output 03/18/18 03/18/18 03/19/18 15:00 23:00 07:00 Intake Total 620 ml 600 ml Output Total 100 ml Balance 620 ml 500 ml SANDRA CINTRON MD Mar 19, 2018 10:13
--- NOTE | 2018-03-19 10:19 | PDOC ---
Subjective: Subjective: Ongoing nausea, still vague abd pain - hard to specify location, probably mostly upper. Says kept radioactive eggs down today. Frequency of stools improved/slowed. Objective: Objective: No stools charted since 03/16. Vital Signs: Vital Signs Date Time Temp Pulse Resp B/P (MAP) Pulse Ox O2 Delivery O2 Flow Rate FiO2 03/19/18 07:00 97.6 52 18 144/68 (93) 100 Nasal Cannula 97.6 03/19/18 03:00 2.0 Labs: Laboratory Tests Test 03/18/18 11:38 03/18/18 12:30 03/18/18 16:33 03/18/18 21:22 Glucose (Fingerstick) 178 mg/dL 166 mg/dL 190 mg/dL Thyroid Stimulating Hormone (TSH) 1.066 uIU/mL Test 03/19/18 08:18 Glucose (Fingerstick) 170 mg/dL PE: GEN: NAD LUNGS: CTAB HEART: RRR ABD: obese, vague tenderness NEURO/PSYCH: A & O 3 A/P: Nausea - on PO PPI and Reglan Irregular bowel habits - better Chronic ROMINA - h/o hiatal hernia, H. pylori, and diverticulosis UTI - E coli -- Looks like GES in process, await this. TYRA EDGAR Mar 19, 2018 10:19
[2018-03-19] MEDS: LIDOCAINE (700MG/PATCH) PATCH. TD SCH (13:02)
[2018-03-19] MEDS: FLUoxetine HCL 20 MG CAPSULE PO SCH (13:02)
[2018-03-19] MEDS: FUROSEMIDE 40 MG TABLET. PO SCH (13:02)
[2018-03-19] MEDS: HYDROcodone/APAP 10/325 1 TAB TABLET PO PRN ×2 (13:04→20:02)
[2018-03-19] MEDS: CARVEDILOL 12.5 MG TABLET. PO SCH ×2 (13:04→17:00)
[2018-03-19] MEDS: MAGNESIUM OXIDE 400 MG TABLET PO SCH (13:04)
[2018-03-19] MEDS: IRON POLYSACCHARIDE COMPLEX 150 MG CAPSULE PO SCH ×2 (13:05→20:01)
[2018-03-19] MEDS: amLODIPine BESYLATE 10 MG TABLET PO SCH (13:05)
[2018-03-19] MEDS: POTASSIUM CHLORIDE 20 MEQ TABLET.ER. PO SCH (13:06)
[2018-03-19] MEDS: SMZ/TMP 800/160MG TABLET. PO SCH (13:06)
[2018-03-19] MEDS: LACTOBACILLUS RHAMNOSUS GG 1 CAPSULE. PO SCH ×2 (13:06→20:01)
[2018-03-19] MEDS: PANTOPRAZOLE 40 MG TABLET.DR. PO SCH (13:06)
[2018-03-19] MEDS: DICLOFENAC SODIUM 1% TOPICAL GEL 100GM TUBE. TP SCH ×2 (13:13→20:01)
--- NOTE | 2018-03-19 15:09 | PDOC ---
PROGRESS NOTES Chief Complaint Chief Complaint EPIGASTRIC PAIN WITH DARK STOOLS - NO MORE RECURRENCE Acute on chronic back pain, s/p injections by physiatry diarrhea with hypokalemia RESOLVED ACUTE ON CHRONIC NAUSEA r/o GASTROPARESIS Diabetes type 2 on insulin-uncontrolled -unknown [id number] Generalized weakness, - has HH and 24/hr care MOrbid Obesity BMI 63 - bariatric bed chronic pain with fibromyalgia plan: fu with dr. Lee, gi GES today on lantus, novolog, ssi ptot History of Present Illness History of Present Illness Was unable to produce PICC with physical therapy because of postop pain She claims back pain much better since injections by physiatry Still dry heaving/chronic problem for her Blood sugars are much better with adjustments here throughout her stay has fibromyalgia still c/o diffuse abs pain GES today Vitals Vitals Vital Signs Date Time Temp Pulse Resp B/P (MAP) Pulse Ox O2 Delivery O2 Flow Rate FiO2 03/19/18 13:05 64 151/84 03/19/18 13:04 99 Nasal Cannula 2.0 03/19/18 11:00 98.2 18 98.2 Physical Exam General: Alert, Oriented X3, Cooperative, No acute distress, mild distress Heart: Regular rate, Normal S1, Normal S2 Lungs: Clear Abdomen: Normal bowel sounds, Soft Extremities: No clubbing, No cyanosis Skin: No significant lesion Labs LABS Laboratory Tests Test 03/18/18 16:33 03/18/18 21:22 03/19/18 08:18 03/19/18 12:50 Glucose (Fingerstick) 166 mg/dL (70-99) 190 mg/dL (70-99) 170 mg/dL (70-99) 144 mg/dL (70-99) Test 03/19/18 13:00 Glucose (Fingerstick) 149 mg/dL (70-99) Assessment and Plan Assessmemt and Plan Problems Medical Problems: (1) Abdominal pain Status: Acute (2) Anemia Status: Acute (3) Hypokalemia Status: Acute (4) Morbid obesity Status: Acute Comment Review of Relevant I have reviewed the following items miranda (where applicable) has been applied. Labs Laboratory Tests Test 03/17/18 17:00 03/17/18 21:08 03/18/18 07:39 03/18/18 11:38 Glucose (Fingerstick) 131 mg/dL (70-99) 147 mg/dL (70-99) 141 mg/dL (70-99) 178 mg/dL (70-99) Test 03/18/18 12:30 03/18/18 16:33 03/18/18 21:22 03/19/18 08:18 Thyroid Stimulating Hormone (TSH) 1.066 uIU/mL (0.358-3.74) Glucose (Fingerstick) 166 mg/dL (70-99) 190 mg/dL (70-99) 170 mg/dL (70-99) Test 03/19/18 12:50 03/19/18 13:00 Glucose (Fingerstick) 144 mg/dL (70-99) 149 mg/dL (70-99) Laboratory Tests Test 03/18/18 16:33 03/18/18 21:22 03/19/18 08:18 03/19/18 12:50 Glucose (Fingerstick) 166 mg/dL (70-99) 190 mg/dL (70-99) 170 mg/dL (70-99) 144 mg/dL (70-99) Test 03/19/18 13:00 Glucose (Fingerstick) 149 mg/dL (70-99) Microbiology 03/15/18 Fecal Leukocyte Stain - Final, Complete 03/13/18 Urine Culture - Final, Complete 03/13/18 Urine Culture Result 1 (HOWIE) - Final, Complete 03/13/18 Antimicrobic Susceptibility - Final, Complete Medications Current Medications Magnesium Sulfate 50 ml @ 25 mls/hr 1X ONCE IV Last administered on at 22:40; Start 03/13/18 at 12:00; Stop 03/13/18 at 13:59; Status DC Potassium Chloride (Klor-Con) 40 meq 1X ONCE PO Last administered on at 14:17; Start 03/13/18 at 12:00; Stop 03/13/18 at 12:03; Status DC Potassium Chloride/Water 50 ml @ 25 mls/hr Q2H IV Last administered on at 22:03; Start 03/13/18 at 14:00; Stop 03/13/18 at 17:59; Status DC Lidocaine/Sodium Bicarbonate (Buffered Lidocaine 1%) 3 ml STK-MED ONCE .ROUTE ; Start 03/13/18 at 15:54; Stop 03/13/18 at 15:55; Status DC Lidocaine/Sodium Bicarbonate (Buffered Lidocaine 1%) 3 ml 1X ONCE INJ Last administered on 03/13/18at 16:15; Start 03/13/18 at 16:15; Stop 03/13/18 at 16 :17; Status DC Allopurinol (Zyloprim) 300 mg DAILY PO ; Start 03/14/18 at 09:00; Stop at 09:00; Status DC Amlodipine Besylate (Norvasc) 10 mg DAILY PO Last administered on 03/19/18at 13 :05; Start 03/14/18 at 09:00 Aspirin (Ecotrin) 81 mg DAILY PO Last administered on 03/17/18at 08:49; Start 03/14/18 at 09:00; Stop 03/17/18 at 09:54; Status DC Furosemide (Lasix) 40 mg DAILY PO Last administered on 03/19/18at 13:02; Start 03/14/18 at 09:00 Insulin Human Lispro (HumaLOG) 10 units TIDWMEALS SQ Last administered on 03/19at 13:18; Start 03/14/18 at 08:00 Trimethoprim/ Sulfamethoxazole (Bactrim Ds) 1 tab DAILY PO Last administered on 03/19/18at 13:06; Start 03/14/18 at 09:00; Stop 03/25/18 at 09:01 Amitriptyline HCl (Elavil) 75 mg QHS PO ; Start 03/13/18 at 21:00; Stop at 21:00; Status DC Carvedilol (Coreg) 25 mg BIDWMEALS PO Last administered on 03/19/18at 13:04; Start 03/13/18 at 19:30 Fluoxetine HCl (PROzac) 20 mg DAILY PO Last administered on 03/19/18at 13:02; Start 03/14/18 at 09:00 Insulin Glargine (Lantus) 30 units QHS SQ Last administered on 03/18/18at 21:48 ; Start 03/13/18 at 21:00 Magnesium Oxide (Magnesium Oxide) 400 mg DAILY PO Last administered on at 13:04; Start 03/14/18 at 09:00 Potassium Chloride (Klor-Con) 20 meq DAILYWBKFT PO Last administered on at 13:06; Start 03/14/18 at 08:00 Acetaminophen/ Hydrocodone Bitart (Lortab 5/325) 1 tab PRN Q4HRS PRN PO PAIN MILD Last administered on 03/18/18at 00:32; Start 03/13/18 at 19:15 Pantoprazole Sodium (PROTONIX VIAL for IV PUSH) 40 mg DAILYAC IVP Last administered on 03/14/18at 08:34; Start 03/14/18 at 07:30; Stop 03/14/18 at 11 :49; Status DC Lactobacillus Rhamnosus (Culturelle) 1 cap BID PO Last administered on at 13:06; Start 03/14/18 at 09:00 Pantoprazole Sodium (Protonix) 40 mg DAILYAC PO Last administered on at 13:06; Start 03/15/18 at 07:30 Diclofenac Sodium (Voltaren) 1 elroy BID TP Last administered on 03/19/18at 13:13 ; Start 03/14/18 at 16:00 Ondansetron HCl (Zofran) 4 mg PRN Q8HRS PRN IV NAUSEA/VOMITING; Start at 12:45; Stop 03/18/18 at 08:16; Status DC Potassium Chloride (Klor-Con) 40 meq 1X ONCE PO Last administered on at 17:45; Start 03/15/18 at 14:30; Stop 03/15/18 at 14:31; Status DC Methylprednisolone Acetate (DEPO-Medrol 40MG VIAL) 40 mg 1X ONCE INJ ; Start 03/16/18 at 12:00; Stop 03/16/18 at 12:01; Status DC Methylprednisolone Acetate (DEPO-Medrol 40MG VIAL) 40 mg 1X ONCE INJ ; Start 03/16/18 at 12:00; Stop 03/16/18 at 12:01; Status DC Bupivacaine HCl (Sensorcaine-Mpf 0.25%) 10 ml 1X ONCE IJ ; Start 03/16/18 at 12:00; Stop 03/16/18 at 12:01; Status DC Polysaccharide Iron Complex (Niferex 150) 150 mg BID PO Last administered on at 13:05; Start 03/16/18 at 12:00 Ceftriaxone Sodium 1 gm/ Dextrose 50 ml @ 100 mls/hr Q24H IV ; Start 03/16/18 at 12:45; Stop 03/16/18 at 12:50; Status DC Ceftriaxone Sodium (Rocephin) 1 gm Q24H IVP Last administered on 03/16/18at 16: 51; Start 03/16/18 at 13:00; Stop 03/17/18 at 10:44; Status DC Insulin Human Lispro (HumaLOG) 0-9 UNITS TIDWMEALS SQ Last administered on at 16:52; Start 03/17/18 at 08:30 Dextrose (Dextrose 50%-Water Syringe) 12.5 gm PRN Q15MIN PRN IV SEE COMMENTS; Start 03/17/18 at 08:15 Acetaminophen/ Hydrocodone Bitart (Lortab 10/325) 1 tab PRN Q6HRS PRN PO PAIN SEVERE Last administered on 03/19/18at 13:04; Start 03/17/18 at 10:00 Naproxen (Naprosyn) 250 mg BID PO ; Start 03/17/18 at 10:00; Stop 03/17/18 at 10:00; Status DC Tramadol HCl (Ultram) 50 mg PRN Q6HRS PRN PO PAIN MODERATE Last administered on 03/18/18at 21:01; Start 03/17/18 at 10:00 Lidocaine (Lidoderm) 1 patch DAILY TD Last administered on 03/19/18at 13:02; Start 03/18/18 at 09:00 Miscellaneous (Lidoderm Patch Removal) 1 ea QHS MC Last administered on at 21:00; Start 03/18/18 at 21:00 Ondansetron HCl (Zofran) 4 mg PRN Q6HRS PRN IV NAUSEA/VOMITING Last administered on 03/18/18at 09:19; Start 03/18/18 at 08:30 Metoclopramide HCl (Reglan) 5 mg TIDAC PO Last administered on 03/19/18at 13:02 ; Start 03/18/18 at 11:30 Active Scripts Active Reported Potassium Chloride 20 Meq Tablet.er 20 Meq PO DAILY Magnesium (Magnesium Oxide) 400 Mg Capsule 1 Cap PO DAILY Amitriptyline Hcl 75 Mg Tablet 1 Tab PO QHS Levemir (Insulin Detemir) 100 Unit/1 Ml Vial 30 Unit SQ HS Aspir-Low (Aspirin) 81 Mg Tablet.dr 1 Tab PO DAILY Carvedilol 25 Mg Tablet 1 Tab PO BID Humalog (Insulin Lispro) 100 Unit/1 Ml Insuln.pen 10 Unit SQ TIDWMEALS Allopurinol 300 Mg Tablet 1 Tab PO DAILY Furosemide 40 Mg Tablet 1 Tab PO DAILY Fluoxetine Hcl 20 Mg Tablet 1 Tab PO DAILY Amlodipine Besylate 10 Mg Tablet 10 Mg PO DAILY Bactrim Ds Tablet (Sulfamethoxazole/Trimethoprim) 1 Each Tablet 1 Tab PO DAILY Vitals/I & O Vital Sign - Last 24 Hours 03/18/18 03/18/18 03/18/18 03/18/18 15:42 16:30 16:32 16:32 Temp 98.9 98.8 98.9 98.8 Pulse 60 60 60 Resp 18 18 B/P (MAP) 134/67 (89) 136/69 (91) 136/69 Pulse Ox 99 98 98 O2 Delivery Nasal Cannula Nasal Cannula Nasal Cannula O2 Flow Rate 2.0 2.0 2.0 03/18/18 03/18/18 03/18/18 03/18/18 19:00 20:00 21:01 22:01 Temp 98.1 98.1 Pulse 66 Resp 18 18 18 B/P (MAP) 151/65 (93) Pulse Ox 97 97 97 O2 Delivery Nasal Cannula Nasal Cannula Nasal Cannula Nasal Cannula O2 Flow Rate 2.0 2.0 2.0 2.0 03/18/18 03/18/18 03/18/18 03/19/18 22:50 23:00 23:50 03:00 Temp 97.5 98.0 97.5 98.0 Pulse 67 63 Resp 18 18 18 B/P (MAP) 146/73 (97) 155/75 (101) Pulse Ox 97 95 95 93 O2 Delivery Nasal Cannula Nasal Cannula Nasal Cannula Nasal Cannula O2 Flow Rate 2.0 2.0 2.0 2.0 03/19/18 03/19/18 03/19/18 03/19/18 07:00 11:00 13:04 13:04 Temp 97.6 98.2 97.6 98.2 Pulse 52 57 64 Resp 18 18 B/P (MAP) 144/68 (93) 153/77 (102) 151/84 Pulse Ox 100 100 99 O2 Delivery Nasal Cannula Nasal Cannula Nasal Cannula O2 Flow Rate 2.0 03/19/18 13:05 Pulse 64 B/P (MAP) 151/84 Intake and Output 03/18/18 03/18/18 03/19/18 15:00 23:00 07:00 Intake Total 620 ml 600 ml Output Total 100 ml Balance 620 ml 500 ml DHIRAJ MCCARTHY MD Mar 19, 2018 15:09
[2018-03-19] MEDS ORDERED: ACETAMINOPHEN 325 MG TABLET. PO PRN (15:15)
[2018-03-19] MEDS ORDERED: ONDANSETRON PF 4 MG/2 ML VIAL. IV PRN (15:15)
[2018-03-19] MEDS ORDERED: DOCUSATE SODIUM 100 MG CAPSULE. PO PRN (15:15)
[2018-03-19] MEDS ORDERED: traMADol 50 MG TABLET PO PRN (15:15)
[2018-03-19] MEDS ORDERED: MORPHINE SULFATE 2 MG/ML VIAL. IV PRN (15:15)
--- NOTE | 2018-03-19 16:37 | RAD ---
Examination: GASTRIC EMPTYING STUDY History: 1.5mCi Tc99m Sulfur Colloid, egg, toast and water. Constant dry heaving and diarrhea after eating for 1 year. Patient is diabetic Comparison/Correlation: None Findings: Gastric emptying study was performed utilizing 1.5 mCi technetium 99m sulfur colloid in an egg and toast meal with water. Imaging was performed in anterior projections. After 1 hour, there is 37 percent gastric retention of radiotracer and other administered oral substances. After 2 hours, there is 6 percent retention. At 3 and 4 hours, there is 2 percent retention. Impression: Normal gastric emptying. No evidence of delayed gastric emptying. Electronically signed by: Alex Ortiz MD (03/19/2018 4:34 PM) [facility]
[2018-03-19] MEDS: PATCH REMOVAL. MC SCH (20:01)
[2018-03-19] MEDS: INSULIN GLARGINE 300 UNITS/3 ML INSULN.PEN. SQ SCH (20:02)
[2018-03-19 23:11] LABS: HEMOGLOBIN A1C 8.9 % (4.8-5.6)
[2018-03-20] MEDS: HYDROcodone/APAP 10/325 1 TAB TABLET PO PRN ×3 (02:00→17:33)
[2018-03-20 03:00] VITALS: BP 160/91
[2018-03-20 05:31] LABS: BASO # 0.1 x10^3/uL (0.0-0.2); BASO % 1 % (0-3); EOS % 1 % (0-3); HEMATOCRIT 32.9 % (36.0-47.0); HEMOGLOBIN 11.1 g/dL (12.0-15.5); LYMPH # 0.8 x10^3/uL (1.0-4.8); LYMPH % 17 % (24-48); MEAN CORPUSCULAR HEMOGLOBIN 28 pg (25-35); MEAN CORPUSCULAR HGB CONC 34 g/dL (31-37); MEAN CORPUSCULAR VOLUME 82 fL (79-100); MONO # 0.4 x10^3/uL (0.0-1.1); MONO % 9 % (0-9); NEUT # 3.8 x10^3uL (1.8-7.7); NEUT % 73 % (31-73); PLATELET COUNT 224 x10^3/uL (140-400); RED BLOOD COUNT 4.01 x10^6/uL (3.50-5.40); RED CELL DISTRIBUTION WIDTH 16.8 % (11.5-14.5); WHITE BLOOD COUNT 5.1 x10^3/uL (4.0-11.0)
[2018-03-20 06:25] LABS: CREATININE 1.2 mg/dL (0.6-1.0); GFR 53.4; POTASSIUM 3.7 mmol/L (3.5-5.1)
[2018-03-20 07:00] VITALS: BP 161/88
[2018-03-20] MEDS: METOCLOPRAMIDE 5 MG TABLET. PO SCH ×3 (08:46→16:21)
[2018-03-20] MEDS: PANTOPRAZOLE 40 MG TABLET.DR. PO SCH (08:46)
[2018-03-20] MEDS: CARVEDILOL 12.5 MG TABLET. PO SCH ×2 (08:48→16:22)
[2018-03-20] MEDS: POTASSIUM CHLORIDE 20 MEQ TABLET.ER. PO SCH (08:48)
[2018-03-20] MEDS: SMZ/TMP 800/160MG TABLET. PO SCH (08:49)
[2018-03-20] MEDS: LACTOBACILLUS RHAMNOSUS GG 1 CAPSULE. PO SCH ×2 (08:49→20:57)
[2018-03-20] MEDS: FUROSEMIDE 40 MG TABLET. PO SCH (08:49)
[2018-03-20] MEDS: IRON POLYSACCHARIDE COMPLEX 150 MG CAPSULE PO SCH ×2 (08:50→20:57)
[2018-03-20] MEDS: MAGNESIUM OXIDE 400 MG TABLET PO SCH (08:50)
[2018-03-20] MEDS: amLODIPine BESYLATE 10 MG TABLET PO SCH (08:51)
[2018-03-20] MEDS: FLUoxetine HCL 20 MG CAPSULE PO SCH (08:51)
[2018-03-20] MEDS: LIDOCAINE (700MG/PATCH) PATCH. TD SCH (08:52)
[2018-03-20] MEDS: DICLOFENAC SODIUM 1% TOPICAL GEL 100GM TUBE. TP SCH ×2 (08:53→20:59)
[2018-03-20] MEDS: INSULIN LISPRO 300 UNITS/3 ML INSULN.PEN. SQ SCH ×6 (09:06→17:29)
[2018-03-20] MEDS ORDERED: MAGNESIUM HYDROXIDE 2,400 MG/30 ML ORAL.SUSP. PO PRN (10:45)
[2018-03-20 11:00] VITALS: BP 97/64
[2018-03-20] MEDS: DOCUSATE SODIUM 100 MG CAPSULE. PO SCH ×2 (11:35→20:59)
[2018-03-20] MEDS: SENNOSIDES/DOCUSATE 8.6/50MG TABLET. PO SCH ×2 (11:35→20:57)
[2018-03-20] MEDS: MAG HYDROX/ALUMINUM HYD/SIMETH 30 ML ORAL.SUSP PO PRN (11:36)
--- NOTE | 2018-03-20 12:27 | PDOC ---
G I PROGRESS NOTE Subjective Eating, but not too much. Still with feeling of need to stool often; no recent stool after diarrhea stopped. No N, V. Physical Exam Lungs clear. RRR Abdomen soft, not distended. Review of Relevant I have reviewed the following items miranda (where applicable) has been applied. Labs Laboratory Tests Test 03/18/18 12:30 03/18/18 16:33 03/18/18 21:22 03/19/18 08:18 Hemoglobin A1c 8.9 % (4.8-5.6) Thyroid Stimulating Hormone (TSH) 1.066 uIU/mL (0.358-3.74) Glucose (Fingerstick) 166 mg/dL (70-99) 190 mg/dL (70-99) 170 mg/dL (70-99) Test 03/19/18 12:50 03/19/18 13:00 03/19/18 17:21 03/19/18 19:57 Glucose (Fingerstick) 144 mg/dL (70-99) 149 mg/dL (70-99) 208 mg/dL (70-99) 169 mg/dL (70-99) Test 03/20/18 05:15 03/20/18 07:45 White Blood Count 5.1 x10^3/uL (4.0-11.0) Red Blood Count 4.01 x10^6/uL (3.50-5.40) Hemoglobin 11.1 g/dL (12.0-15.5) Hematocrit 32.9 % (36.0-47.0) Mean Corpuscular Volume 82 fL (79-100) Mean Corpuscular Hemoglobin 28 pg (25-35) Mean Corpuscular Hemoglobin Concent 34 g/dL (31-37) Red Cell Distribution Width 16.8 % (11.5-14.5) Platelet Count 224 x10^3/uL (140-400) Neutrophils (%) (Auto) 73 % (31-73) Lymphocytes (%) (Auto) 17 % (24-48) Monocytes (%) (Auto) 9 % (0-9) Eosinophils (%) (Auto) 1 % (0-3) Basophils (%) (Auto) 1 % (0-3) Neutrophils # (Auto) 3.8 x10^3uL (1.8-7.7) Lymphocytes # (Auto) 0.8 x10^3/uL (1.0-4.8) Monocytes # (Auto) 0.4 x10^3/uL (0.0-1.1) Eosinophils # (Auto) 0.0 x10^3/uL (0.0-0.7) Basophils # (Auto) 0.1 x10^3/uL (0.0-0.2) Sodium Level 136 mmol/L (136-145) Potassium Level 3.7 mmol/L (3.5-5.1) Chloride Level 96 mmol/L (98-107) Carbon Dioxide Level 33 mmol/L (21-32) Anion Gap 7 (6-14) Blood Urea Nitrogen 11 mg/dL (7-20) Creatinine 1.2 mg/dL (0.6-1.0) Estimated GFR (Cockcroft-Gault) 53.4 Glucose Level 164 mg/dL (70-99) Calcium Level 9.0 mg/dL (8.5-10.1) Glucose (Fingerstick) 175 mg/dL (70-99) Laboratory Tests Test 03/19/18 12:50 03/19/18 13:00 03/19/18 17:21 03/19/18 19:57 Glucose (Fingerstick) 144 mg/dL (70-99) 149 mg/dL (70-99) 208 mg/dL (70-99) 169 mg/dL (70-99) Test 03/20/18 05:15 03/20/18 07:45 White Blood Count 5.1 x10^3/uL (4.0-11.0) Red Blood Count 4.01 x10^6/uL (3.50-5.40) Hemoglobin 11.1 g/dL (12.0-15.5) Hematocrit 32.9 % (36.0-47.0) Mean Corpuscular Volume 82 fL (79-100) Mean Corpuscular Hemoglobin 28 pg (25-35) Mean Corpuscular Hemoglobin Concent 34 g/dL (31-37) Red Cell Distribution Width 16.8 % (11.5-14.5) Platelet Count 224 x10^3/uL (140-400) Neutrophils (%) (Auto) 73 % (31-73) Lymphocytes (%) (Auto) 17 % (24-48) Monocytes (%) (Auto) 9 % (0-9) Eosinophils (%) (Auto) 1 % (0-3) Basophils (%) (Auto) 1 % (0-3) Neutrophils # (Auto) 3.8 x10^3uL (1.8-7.7) Lymphocytes # (Auto) 0.8 x10^3/uL (1.0-4.8) Monocytes # (Auto) 0.4 x10^3/uL (0.0-1.1) Eosinophils # (Auto) 0.0 x10^3/uL (0.0-0.7) Basophils # (Auto) 0.1 x10^3/uL (0.0-0.2) Sodium Level 136 mmol/L (136-145) Potassium Level 3.7 mmol/L (3.5-5.1) Chloride Level 96 mmol/L (98-107) Carbon Dioxide Level 33 mmol/L (21-32) Anion Gap 7 (6-14) Blood Urea Nitrogen 11 mg/dL (7-20) Creatinine 1.2 mg/dL (0.6-1.0) Estimated GFR (Cockcroft-Gault) 53.4 Glucose Level 164 mg/dL (70-99) Calcium Level 9.0 mg/dL (8.5-10.1) Glucose (Fingerstick) 175 mg/dL (70-99) Microbiology 03/15/18 Fecal Leukocyte Stain - Final, Complete 03/13/18 Urine Culture - Final, Complete 03/13/18 Urine Culture Result 1 (HOWIE) - Final, Complete 03/13/18 Antimicrobic Susceptibility - Final, Complete Vitals/I & O Vital Sign - Last 24 Hours 03/19/18 03/19/18 03/19/18 03/19/18 13:04 13:04 13:05 15:00 Temp 97.4 97.4 Pulse 64 64 57 Resp 18 B/P (MAP) 151/84 151/84 124/61 (82) Pulse Ox 99 99 O2 Delivery Nasal Cannula Nasal Cannula O2 Flow Rate 2.0 03/19/18 03/19/18 03/19/18 03/19/18 17:00 17:24 19:00 20:00 Temp 98.4 98.4 Pulse 52 52 54 Resp 16 B/P (MAP) 105/69 105/69 (81) 137/61 (86) Pulse Ox 100 O2 Delivery Nasal Cannula Nasal Cannula O2 Flow Rate 2.0 03/19/18 03/19/18 03/20/18 03/20/18 20:02 23:00 02:00 03:00 Temp 97.4 97.9 97.4 97.9 Pulse 60 63 Resp 18 18 18 18 B/P (MAP) 140/70 (93) 160/91 (114) Pulse Ox 99 98 98 99 O2 Delivery Nasal Cannula Nasal Cannula Nasal Cannula Nasal Cannula O2 Flow Rate 2.0 2.0 2.0 2.0 03/20/18 03/20/18 03/20/18 03/20/18 07:00 08:48 08:51 08:53 Temp 98.0 98.0 Pulse 68 68 68 Resp 18 20 B/P (MAP) 161/88 (112) 161/88 161/88 Pulse Ox 98 98 O2 Delivery Nasal Cannula Nasal Cannula O2 Flow Rate 2.0 03/20/18 03/20/18 09:53 11:00 Temp 97.4 97.4 Pulse 56 Resp 20 18 B/P (MAP) 97/64 (75) Pulse Ox 98 98 O2 Delivery Nasal Cannula Nasal Cannula O2 Flow Rate 2.0 Intake and Output 03/19/18 03/19/18 03/20/18 15:00 23:00 07:00 Intake Total 0 ml 360 ml 600 ml Balance 0 ml 360 ml 600 ml Images GES was normal; had been off Reglan >6 hours. Problem List Problems Medical Problems: (1) Abdominal pain Status: Acute (2) Anemia Status: Acute (3) Hypokalemia Status: Acute (4) Morbid obesity Status: Acute Assessment N, V--better. Viral? Superimposed on some degree of GERD. Diarrhea, better as well. Viral? ROMINA--stable over the years w/o progression. Unclear further investigation would yield any meaningful findings, though now not the time. Plan of Care: Continue current Tx, Mgmt Plan of Care Note Could consider a colonoscopy later. OZZIE WIELY MD Mar 20, 2018 12:27
--- NOTE | 2018-03-20 13:40 | PDOC ---
PROGRESS NOTES Chief Complaint Chief Complaint EPIGASTRIC PAIN WITH DARK STOOLS - NO MORE RECURRENCE Acute on chronic back pain, s/p injections by physiatry diarrhea with hypokalemia RESOLVED ACUTE ON CHRONIC NAUSEA r/o GASTROPARESIS Diabetes type 2 on insulin-uncontrolled -unknown [id number] Generalized weakness, - has HH and 24/hr care MOrbid Obesity BMI 63 - bariatric bed chronic pain with fibromyalgia plan: fu with dr. Lee, gi GES neg, consider dc reglan if ok with gi on lantus, novolog, ssi ptot may need EGD, colonoscopy, defer to GI add stool softner. pt c/o dark stool before, neg FOBT. History of Present Illness History of Present Illness Was unable to produce PICC with physical therapy because of postop pain She claims back pain much better since injections by physiatry Blood sugars are much better with adjustments here throughout her stay has fibromyalgia still c/o diffuse abd pain, no N/V, feels mild dysphagia, drinking water ok GES neg no bm for 2-3ds after diarrhea resolved Vitals Vitals Vital Signs Date Time Temp Pulse Resp B/P (MAP) Pulse Ox O2 Delivery O2 Flow Rate FiO2 03/20/18 11:00 97.4 56 18 97/64 (75) 98 Nasal Cannula 97.4 03/20/18 09:53 2.0 Physical Exam General: Alert, Oriented X3, Cooperative, No acute distress, mild distress Heart: Regular rate, Normal S1, Normal S2 Lungs: Clear Abdomen: Normal bowel sounds, Soft Extremities: No clubbing, No cyanosis Skin: No significant lesion Labs LABS Laboratory Tests Test 03/19/18 17:21 03/19/18 19:57 03/20/18 05:15 03/20/18 07:45 Glucose (Fingerstick) 208 mg/dL (70-99) 169 mg/dL (70-99) 175 mg/dL (70-99) White Blood Count 5.1 x10^3/uL (4.0-11.0) Red Blood Count 4.01 x10^6/uL (3.50-5.40) Hemoglobin 11.1 g/dL (12.0-15.5) Hematocrit 32.9 % (36.0-47.0) Mean Corpuscular Volume 82 fL (79-100) Mean Corpuscular Hemoglobin 28 pg (25-35) Mean Corpuscular Hemoglobin Concent 34 g/dL (31-37) Red Cell Distribution Width 16.8 % (11.5-14.5) Platelet Count 224 x10^3/uL (140-400) Neutrophils (%) (Auto) 73 % (31-73) Lymphocytes (%) (Auto) 17 % (24-48) Monocytes (%) (Auto) 9 % (0-9) Eosinophils (%) (Auto) 1 % (0-3) Basophils (%) (Auto) 1 % (0-3) Neutrophils # (Auto) 3.8 x10^3uL (1.8-7.7) Lymphocytes # (Auto) 0.8 x10^3/uL (1.0-4.8) Monocytes # (Auto) 0.4 x10^3/uL (0.0-1.1) Eosinophils # (Auto) 0.0 x10^3/uL (0.0-0.7) Basophils # (Auto) 0.1 x10^3/uL (0.0-0.2) Sodium Level 136 mmol/L (136-145) Potassium Level 3.7 mmol/L (3.5-5.1) Chloride Level 96 mmol/L (98-107) Carbon Dioxide Level 33 mmol/L (21-32) Anion Gap 7 (6-14) Blood Urea Nitrogen 11 mg/dL (7-20) Creatinine 1.2 mg/dL (0.6-1.0) Estimated GFR (Cockcroft-Gault) 53.4 Glucose Level 164 mg/dL (70-99) Calcium Level 9.0 mg/dL (8.5-10.1) Assessment and Plan Assessmemt and Plan Problems Medical Problems: (1) Abdominal pain Status: Acute (2) Anemia Status: Acute (3) Hypokalemia Status: Acute (4) Morbid obesity Status: Acute Comment Review of Relevant I have reviewed the following items miranda (where applicable) has been applied. Labs Laboratory Tests Test 03/18/18 16:33 03/18/18 21:22 03/19/18 08:18 03/19/18 12:50 Glucose (Fingerstick) 166 mg/dL (70-99) 190 mg/dL (70-99) 170 mg/dL (70-99) 144 mg/dL (70-99) Test 03/19/18 13:00 03/19/18 17:21 03/19/18 19:57 03/20/18 05:15 Glucose (Fingerstick) 149 mg/dL (70-99) 208 mg/dL (70-99) 169 mg/dL (70-99) White Blood Count 5.1 x10^3/uL (4.0-11.0) Red Blood Count 4.01 x10^6/uL (3.50-5.40) Hemoglobin 11.1 g/dL (12.0-15.5) Hematocrit 32.9 % (36.0-47.0) Mean Corpuscular Volume 82 fL (79-100) Mean Corpuscular Hemoglobin 28 pg (25-35) Mean Corpuscular Hemoglobin Concent 34 g/dL (31-37) Red Cell Distribution Width 16.8 % (11.5-14.5) Platelet Count 224 x10^3/uL (140-400) Neutrophils (%) (Auto) 73 % (31-73) Lymphocytes (%) (Auto) 17 % (24-48) Monocytes (%) (Auto) 9 % (0-9) Eosinophils (%) (Auto) 1 % (0-3) Basophils (%) (Auto) 1 % (0-3) Neutrophils # (Auto) 3.8 x10^3uL (1.8-7.7) Lymphocytes # (Auto) 0.8 x10^3/uL (1.0-4.8) Monocytes # (Auto) 0.4 x10^3/uL (0.0-1.1) Eosinophils # (Auto) 0.0 x10^3/uL (0.0-0.7) Basophils # (Auto) 0.1 x10^3/uL (0.0-0.2) Sodium Level 136 mmol/L (136-145) Potassium Level 3.7 mmol/L (3.5-5.1) Chloride Level 96 mmol/L (98-107) Carbon Dioxide Level 33 mmol/L (21-32) Anion Gap 7 (6-14) Blood Urea Nitrogen 11 mg/dL (7-20) Creatinine 1.2 mg/dL (0.6-1.0) Estimated GFR (Cockcroft-Gault) 53.4 Glucose Level 164 mg/dL (70-99) Calcium Level 9.0 mg/dL (8.5-10.1) Test 03/20/18 07:45 Glucose (Fingerstick) 175 mg/dL (70-99) Laboratory Tests Test 03/19/18 17:21 03/19/18 19:57 03/20/18 05:15 03/20/18 07:45 Glucose (Fingerstick) 208 mg/dL (70-99) 169 mg/dL (70-99) 175 mg/dL (70-99) White Blood Count 5.1 x10^3/uL (4.0-11.0) Red Blood Count 4.01 x10^6/uL (3.50-5.40) Hemoglobin 11.1 g/dL (12.0-15.5) Hematocrit 32.9 % (36.0-47.0) Mean Corpuscular Volume 82 fL (79-100) Mean Corpuscular Hemoglobin 28 pg (25-35) Mean Corpuscular Hemoglobin Concent 34 g/dL (31-37) Red Cell Distribution Width 16.8 % (11.5-14.5) Platelet Count 224 x10^3/uL (140-400) Neutrophils (%) (Auto) 73 % (31-73) Lymphocytes (%) (Auto) 17 % (24-48) Monocytes (%) (Auto) 9 % (0-9) Eosinophils (%) (Auto) 1 % (0-3) Basophils (%) (Auto) 1 % (0-3) Neutrophils # (Auto) 3.8 x10^3uL (1.8-7.7) Lymphocytes # (Auto) 0.8 x10^3/uL (1.0-4.8) Monocytes # (Auto) 0.4 x10^3/uL (0.0-1.1) Eosinophils # (Auto) 0.0 x10^3/uL (0.0-0.7) Basophils # (Auto) 0.1 x10^3/uL (0.0-0.2) Sodium Level 136 mmol/L (136-145) Potassium Level 3.7 mmol/L (3.5-5.1) Chloride Level 96 mmol/L (98-107) Carbon Dioxide Level 33 mmol/L (21-32) Anion Gap 7 (6-14) Blood Urea Nitrogen 11 mg/dL (7-20) Creatinine 1.2 mg/dL (0.6-1.0) Estimated GFR (Cockcroft-Gault) 53.4 Glucose Level 164 mg/dL (70-99) Calcium Level 9.0 mg/dL (8.5-10.1) Microbiology 03/15/18 Fecal Leukocyte Stain - Final, Complete 03/13/18 Urine Culture - Final, Complete 03/13/18 Urine Culture Result 1 (HOWIE) - Final, Complete 03/13/18 Antimicrobic Susceptibility - Final, Complete Medications Current Medications Magnesium Sulfate 50 ml @ 25 mls/hr 1X ONCE IV Last administered on at 22:40; Start 03/13/18 at 12:00; Stop 03/13/18 at 13:59; Status DC Potassium Chloride (Klor-Con) 40 meq 1X ONCE PO Last administered on at 14:17; Start 03/13/18 at 12:00; Stop 03/13/18 at 12:03; Status DC Potassium Chloride/Water 50 ml @ 25 mls/hr Q2H IV Last administered on at 22:03; Start 03/13/18 at 14:00; Stop 03/13/18 at 17:59; Status DC Lidocaine/Sodium Bicarbonate (Buffered Lidocaine 1%) 3 ml STK-MED ONCE .ROUTE ; Start 03/13/18 at 15:54; Stop 03/13/18 at 15:55; Status DC Lidocaine/Sodium Bicarbonate (Buffered Lidocaine 1%) 3 ml 1X ONCE INJ Last administered on 03/13/18at 16:15; Start 03/13/18 at 16:15; Stop 03/13/18 at 16 :17; Status DC Allopurinol (Zyloprim) 300 mg DAILY PO ; Start 03/14/18 at 09:00; Stop at 09:00; Status DC Amlodipine Besylate (Norvasc) 10 mg DAILY PO Last administered on 03/20/18at 08 :51; Start 03/14/18 at 09:00 Aspirin (Ecotrin) 81 mg DAILY PO Last administered on 03/17/18at 08:49; Start 03/14/18 at 09:00; Stop 03/17/18 at 09:54; Status DC Furosemide (Lasix) 40 mg DAILY PO Last administered on 03/20/18 08:49; Start 03/14/18 at 09:00 Insulin Human Lispro (HumaLOG) 10 units TIDWMEALS SQ Last administered on 03/20 12:20; Start 03/14/18 at 08:00 Trimethoprim/ Sulfamethoxazole (Bactrim Ds) 1 tab DAILY PO Last administered on 03/20/18 08:49; Start 03/14/18 at 09:00; Stop 03/25/18 at 09:01 Amitriptyline HCl (Elavil) 75 mg QHS PO ; Start 03/13/18 at 21:00; Stop at 21:00; Status DC Carvedilol (Coreg) 25 mg BIDWMEALS PO Last administered on 03/20/18 08:48; Start 03/13/18 at 19:30 Fluoxetine HCl (PROzac) 20 mg DAILY PO Last administered on 03/20/18 08:51; Start 03/14/18 at 09:00 Insulin Glargine (Lantus) 30 units QHS SQ Last administered on 03/19/18 20:02 ; Start 03/13/18 at 21:00 Magnesium Oxide (Magnesium Oxide) 400 mg DAILY PO Last administered on 08:50; Start 03/14/18 at 09:00 Potassium Chloride (Klor-Con) 20 meq DAILYWBKFT PO Last administered on 08:48; Start 03/14/18 at 08:00 Acetaminophen/ Hydrocodone Bitart (Lortab 5/325) 1 tab PRN Q4HRS PRN PO MODERATE PAIN Last administered on 03/18/18 00:32; Start 03/13/18 at 19:15 Pantoprazole Sodium (PROTONIX VIAL for IV PUSH) 40 mg DAILYAC IVP Last administered on 03/14/18 08:34; Start 03/14/18 at 07:30; Stop 03/14/18 at 11 :49; Status DC Lactobacillus Rhamnosus (Culturelle) 1 cap BID PO Last administered on 08:49; Start 03/14/18 at 09:00 Pantoprazole Sodium (Protonix) 40 mg DAILYAC PO Last administered on 10/30/ 18at 08:46; Start 03/15/18 at 07:30 Diclofenac Sodium (Voltaren) 1 elroy BID TP Last administered on 03/20/18at 08:53 ; Start 03/14/18 at 16:00 Ondansetron HCl (Zofran) 4 mg PRN Q8HRS PRN IV NAUSEA/VOMITING; Start at 12:45; Stop 03/18/18 at 08:16; Status DC Potassium Chloride (Klor-Con) 40 meq 1X ONCE PO Last administered on at 17:45; Start 03/15/18 at 14:30; Stop 03/15/18 at 14:31; Status DC Methylprednisolone Acetate (DEPO-Medrol 40MG VIAL) 40 mg 1X ONCE INJ ; Start 03/16/18 at 12:00; Stop 03/16/18 at 12:01; Status DC Methylprednisolone Acetate (DEPO-Medrol 40MG VIAL) 40 mg 1X ONCE INJ ; Start 03/16/18 at 12:00; Stop 03/16/18 at 12:01; Status DC Bupivacaine HCl (Sensorcaine-Mpf 0.25%) 10 ml 1X ONCE IJ ; Start 03/16/18 at 12:00; Stop 03/16/18 at 12:01; Status DC Polysaccharide Iron Complex (Niferex 150) 150 mg BID PO Last administered on at 08:50; Start 03/16/18 at 12:00 Ceftriaxone Sodium 1 gm/ Dextrose 50 ml @ 100 mls/hr Q24H IV ; Start 03/16/18 at 12:45; Stop 03/16/18 at 12:50; Status DC Ceftriaxone Sodium (Rocephin) 1 gm Q24H IVP Last administered on 03/16/18at 16: 51; Start 03/16/18 at 13:00; Stop 03/17/18 at 10:44; Status DC Insulin Human Lispro (HumaLOG) 0-9 UNITS TIDWMEALS SQ Last administered on at 12:19; Start 03/17/18 at 08:30 Dextrose (Dextrose 50%-Water Syringe) 12.5 gm PRN Q15MIN PRN IV SEE COMMENTS; Start 03/17/18 at 08:15 Acetaminophen/ Hydrocodone Bitart (Lortab 10/325) 1 tab PRN Q6HRS PRN PO SEVERE PAIN Last administered on 03/20/18at 08:53; Start 03/17/18 at 10:00 Naproxen (Naprosyn) 250 mg BID PO ; Start 03/17/18 at 10:00; Stop 03/17/18 at 10:00; Status DC Tramadol HCl (Ultram) 50 mg PRN Q6HRS PRN PO MILD PAIN Last administered on at 21:01; Start 03/17/18 at 10:00 Lidocaine (Lidoderm) 1 patch DAILY TD Last administered on 03/20/18 08:52; Start 03/18/18 at 09:00 Miscellaneous (Lidoderm Patch Removal) 1 ea QHS MC Last administered on at 20:01; Start 03/18/18 at 21:00 Ondansetron HCl (Zofran) 4 mg PRN Q6HRS PRN IV NAUSEA/VOMITING Last administered on 03/18/18at 09:19; Start 03/18/18 at 08:30; Stop 03/19/18 at 15 :09; Status DC Metoclopramide HCl (Reglan) 5 mg TIDAC PO Last administered on 03/20/18at 11:35 ; Start 03/18/18 at 11:30 Acetaminophen (Tylenol) 650 mg PRN Q6HRS PRN PO FEVER Last administered on at 11:36; Start 03/19/18 at 15:15 Ondansetron HCl (Zofran) 4 mg PRN Q6HRS PRN IV NAUSEA/VOMITING; Start at 15:15 Morphine Sulfate (Morphine Sulfate) 2 mg PRN Q2HR PRN IV MODERATE TO SEVERE PAIN; Start 03/19/18 at 15:15 Tramadol HCl (Ultram) 50 mg PRN Q6HRS PRN PO MILD TO MODERATE PAIN; Start at 15:15; Stop 03/19/18 at 19:19; Status DC Docusate Sodium (Colace) 100 mg PRN DAILY PRN PO CONSTIPATION 1ST CHOICE; Start 03/19/18 at 15:15 Al Hydroxide/Mg Hydroxide (Mylanta Plus Xs) 30 ml PRN Q2HR PRN PO HEARTBURN / GAS Last administered on 03/20/18at 11:36; Start 03/20/18 at 10:45 Senna/Docusate Sodium (Senna Plus) 1 tab BID PO Last administered on at 11:35; Start 03/20/18 at 11:30 Docusate Sodium (Colace) 100 mg BID PO Last administered on 03/20/18at 11:35; Start 03/20/18 at 11:30 Magnesium Hydroxide (Milk Of Magnesia) 2,400 mg PRN Q12HR PRN PO CONSTIPATION 2ND CHOICE; Start 03/20/18 at 10:45 Active Scripts Active Reported Potassium Chloride 20 Meq Tablet.er 20 Meq PO DAILY Magnesium (Magnesium Oxide) 400 Mg Capsule 1 Cap PO DAILY Amitriptyline Hcl 75 Mg Tablet 1 Tab PO QHS Levemir (Insulin Detemir) 100 Unit/1 Ml Vial 30 Unit SQ HS Aspir-Low (Aspirin) 81 Mg Tablet.dr 1 Tab PO DAILY Carvedilol 25 Mg Tablet 1 Tab PO BID Humalog (Insulin Lispro) 100 Unit/1 Ml Insuln.pen 10 Unit SQ TIDWMEALS Allopurinol 300 Mg Tablet 1 Tab PO DAILY Furosemide 40 Mg Tablet 1 Tab PO DAILY Fluoxetine Hcl 20 Mg Tablet 1 Tab PO DAILY Amlodipine Besylate 10 Mg Tablet 10 Mg PO DAILY Bactrim Ds Tablet (Sulfamethoxazole/Trimethoprim) 1 Each Tablet 1 Tab PO DAILY Vitals/I & O Vital Sign - Last 24 Hours 03/19/18 03/19/18 03/19/18 03/19/18 15:00 17:00 17:24 19:00 Temp 97.4 98.4 97.4 98.4 Pulse 57 52 52 54 Resp 18 16 B/P (MAP) 124/61 (82) 105/69 105/69 (81) 137/61 (86) Pulse Ox 99 100 O2 Delivery Nasal Cannula Nasal Cannula 03/19/18 03/19/18 03/19/18 03/20/18 20:00 20:02 23:00 02:00 Temp 97.4 97.4 Pulse 60 Resp 18 18 18 B/P (MAP) 140/70 (93) Pulse Ox 99 98 98 O2 Delivery Nasal Cannula Nasal Cannula Nasal Cannula Nasal Cannula O2 Flow Rate 2.0 2.0 2.0 2.0 03/20/18 03/20/18 03/20/18 03/20/18 03:00 07:00 08:00 08:48 Temp 97.9 98.0 97.9 98.0 Pulse 63 68 68 Resp 18 18 B/P (MAP) 160/91 (114) 161/88 (112) 161/88 Pulse Ox 99 98 O2 Delivery Nasal Cannula Nasal Cannula Nasal Cannula O2 Flow Rate 2.0 2.0 03/20/18 03/20/18 03/20/18 03/20/18 08:51 08:53 09:53 11:00 Temp 97.4 97.4 Pulse 68 56 Resp 20 20 18 B/P (MAP) 161/88 97/64 (75) Pulse Ox 98 98 98 O2 Delivery Nasal Cannula Nasal Cannula Nasal Cannula O2 Flow Rate 2.0 2.0 Intake and Output 03/19/18 03/19/18 03/20/18 15:00 23:00 07:00 Intake Total 0 ml 360 ml 600 ml Balance 0 ml 360 ml 600 ml DHIRAJ MCCARTHY MD Mar 20, 2018 13:40
--- NOTE | 2018-03-20 14:45 | PDOC ---
PROGRESS NOTES Subjective Subjective She admits gastric discomfort. Objective Objective Vital Signs Date Time Temp Pulse Resp B/P (MAP) Pulse Ox O2 Delivery O2 Flow Rate FiO2 03/20/18 11:00 97.4 56 18 97/64 (75) 98 Nasal Cannula 97.4 03/20/18 09:53 2.0 Intake and Output 03/20/18 07:00 Intake Total 960 ml Balance 960 ml Intake Oral 960 ml # Voids 5 Physical Exam Physical Exam She is sitting in bed with head end propped up and she continues with painfully limited lumbar spine and knee joint ROM. She is not getting up much with her GI problems. Assessment Assessment Problems Medical Problems: (1) Abdominal pain Status: Acute (2) Anemia Status: Acute (3) Hypokalemia Status: Acute (4) Morbid obesity Status: Acute Plan Plan of Care To SNF or home with home health follow up when medically stable. Comment Review of Relevant I have reviewed the following items miranda (where applicable) has been applied. Labs Laboratory Tests Test 03/18/18 16:33 03/18/18 21:22 03/19/18 08:18 03/19/18 12:50 Glucose (Fingerstick) 166 mg/dL (70-99) 190 mg/dL (70-99) 170 mg/dL (70-99) 144 mg/dL (70-99) Test 03/19/18 13:00 03/19/18 17:21 03/19/18 19:57 03/20/18 05:15 Glucose (Fingerstick) 149 mg/dL (70-99) 208 mg/dL (70-99) 169 mg/dL (70-99) White Blood Count 5.1 x10^3/uL (4.0-11.0) Red Blood Count 4.01 x10^6/uL (3.50-5.40) Hemoglobin 11.1 g/dL (12.0-15.5) Hematocrit 32.9 % (36.0-47.0) Mean Corpuscular Volume 82 fL (79-100) Mean Corpuscular Hemoglobin 28 pg (25-35) Mean Corpuscular Hemoglobin Concent 34 g/dL (31-37) Red Cell Distribution Width 16.8 % (11.5-14.5) Platelet Count 224 x10^3/uL (140-400) Neutrophils (%) (Auto) 73 % (31-73) Lymphocytes (%) (Auto) 17 % (24-48) Monocytes (%) (Auto) 9 % (0-9) Eosinophils (%) (Auto) 1 % (0-3) Basophils (%) (Auto) 1 % (0-3) Neutrophils # (Auto) 3.8 x10^3uL (1.8-7.7) Lymphocytes # (Auto) 0.8 x10^3/uL (1.0-4.8) Monocytes # (Auto) 0.4 x10^3/uL (0.0-1.1) Eosinophils # (Auto) 0.0 x10^3/uL (0.0-0.7) Basophils # (Auto) 0.1 x10^3/uL (0.0-0.2) Sodium Level 136 mmol/L (136-145) Potassium Level 3.7 mmol/L (3.5-5.1) Chloride Level 96 mmol/L (98-107) Carbon Dioxide Level 33 mmol/L (21-32) Anion Gap 7 (6-14) Blood Urea Nitrogen 11 mg/dL (7-20) Creatinine 1.2 mg/dL (0.6-1.0) Estimated GFR (Cockcroft-Gault) 53.4 Glucose Level 164 mg/dL (70-99) Calcium Level 9.0 mg/dL (8.5-10.1) Test 03/20/18 07:45 Glucose (Fingerstick) 175 mg/dL (70-99) Laboratory Tests Test 03/19/18 17:21 03/19/18 19:57 03/20/18 05:15 03/20/18 07:45 Glucose (Fingerstick) 208 mg/dL (70-99) 169 mg/dL (70-99) 175 mg/dL (70-99) White Blood Count 5.1 x10^3/uL (4.0-11.0) Red Blood Count 4.01 x10^6/uL (3.50-5.40) Hemoglobin 11.1 g/dL (12.0-15.5) Hematocrit 32.9 % (36.0-47.0) Mean Corpuscular Volume 82 fL (79-100) Mean Corpuscular Hemoglobin 28 pg (25-35) Mean Corpuscular Hemoglobin Concent 34 g/dL (31-37) Red Cell Distribution Width 16.8 % (11.5-14.5) Platelet Count 224 x10^3/uL (140-400) Neutrophils (%) (Auto) 73 % (31-73) Lymphocytes (%) (Auto) 17 % (24-48) Monocytes (%) (Auto) 9 % (0-9) Eosinophils (%) (Auto) 1 % (0-3) Basophils (%) (Auto) 1 % (0-3) Neutrophils # (Auto) 3.8 x10^3uL (1.8-7.7) Lymphocytes # (Auto) 0.8 x10^3/uL (1.0-4.8) Monocytes # (Auto) 0.4 x10^3/uL (0.0-1.1) Eosinophils # (Auto) 0.0 x10^3/uL (0.0-0.7) Basophils # (Auto) 0.1 x10^3/uL (0.0-0.2) Sodium Level 136 mmol/L (136-145) Potassium Level 3.7 mmol/L (3.5-5.1) Chloride Level 96 mmol/L (98-107) Carbon Dioxide Level 33 mmol/L (21-32) Anion Gap 7 (6-14) Blood Urea Nitrogen 11 mg/dL (7-20) Creatinine 1.2 mg/dL (0.6-1.0) Estimated GFR (Cockcroft-Gault) 53.4 Glucose Level 164 mg/dL (70-99) Calcium Level 9.0 mg/dL (8.5-10.1) Microbiology 03/15/18 Fecal Leukocyte Stain - Final, Complete 03/13/18 Urine Culture - Final, Complete 03/13/18 Urine Culture Result 1 (HOWIE) - Final, Complete 03/13/18 Antimicrobic Susceptibility - Final, Complete Medications Current Medications Magnesium Sulfate 50 ml @ 25 mls/hr 1X ONCE IV Last administered on at 22:40; Start 03/13/18 at 12:00; Stop 03/13/18 at 13:59; Status DC Potassium Chloride (Klor-Con) 40 meq 1X ONCE PO Last administered on at 14:17; Start 03/13/18 at 12:00; Stop 03/13/18 at 12:03; Status DC Potassium Chloride/Water 50 ml @ 25 mls/hr Q2H IV Last administered on at 22:03; Start 03/13/18 at 14:00; Stop 03/13/18 at 17:59; Status DC Lidocaine/Sodium Bicarbonate (Buffered Lidocaine 1%) 3 ml STK-MED ONCE .ROUTE ; Start 03/13/18 at 15:54; Stop 03/13/18 at 15:55; Status DC Lidocaine/Sodium Bicarbonate (Buffered Lidocaine 1%) 3 ml 1X ONCE INJ Last administered on 03/13/18at 16:15; Start 03/13/18 at 16:15; Stop 03/13/18 at 16 :17; Status DC Allopurinol (Zyloprim) 300 mg DAILY PO ; Start 03/14/18 at 09:00; Stop at 09:00; Status DC Amlodipine Besylate (Norvasc) 10 mg DAILY PO Last administered on 03/20/18at 08 :51; Start 03/14/18 at 09:00 Aspirin (Ecotrin) 81 mg DAILY PO Last administered on 03/17/18at 08:49; Start 03/14/18 at 09:00; Stop 03/17/18 at 09:54; Status DC Furosemide (Lasix) 40 mg DAILY PO Last administered on 03/20/18at 08:49; Start 03/14/18 at 09:00 Insulin Human Lispro (HumaLOG) 10 units TIDWMEALS SQ Last administered on 03/20at 12:20; Start 03/14/18 at 08:00 Trimethoprim/ Sulfamethoxazole (Bactrim Ds) 1 tab DAILY PO Last administered on 03/20/18at 08:49; Start 03/14/18 at 09:00; Stop 03/25/18 at 09:01 Amitriptyline HCl (Elavil) 75 mg QHS PO ; Start 03/13/18 at 21:00; Stop at 21:00; Status DC Carvedilol (Coreg) 25 mg BIDWMEALS PO Last administered on 03/20/18at 08:48; Start 03/13/18 at 19:30 Fluoxetine HCl (PROzac) 20 mg DAILY PO Last administered on 03/20/18 08:51; Start 03/14/18 at 09:00 Insulin Glargine (Lantus) 30 units QHS SQ Last administered on 03/19/18 20:02 ; Start 03/13/18 at 21:00 Magnesium Oxide (Magnesium Oxide) 400 mg DAILY PO Last administered on 08:50; Start 03/14/18 at 09:00 Potassium Chloride (Klor-Con) 20 meq DAILYWBKFT PO Last administered on 08:48; Start 03/14/18 at 08:00 Acetaminophen/ Hydrocodone Bitart (Lortab 5/325) 1 tab PRN Q4HRS PRN PO MODERATE PAIN Last administered on 03/18/18 00:32; Start 03/13/18 at 19:15 Pantoprazole Sodium (PROTONIX VIAL for IV PUSH) 40 mg DAILYAC IVP Last administered on 03/14/18 08:34; Start 03/14/18 at 07:30; Stop 03/14/18 at 11 :49; Status DC Lactobacillus Rhamnosus (Culturelle) 1 cap BID PO Last administered on 08:49; Start 03/14/18 at 09:00 Pantoprazole Sodium (Protonix) 40 mg DAILYAC PO Last administered on 08:46; Start 03/15/18 at 07:30 Diclofenac Sodium (Voltaren) 1 elroy BID TP Last administered on 03/20/18 08:53 ; Start 03/14/18 at 16:00 Ondansetron HCl (Zofran) 4 mg PRN Q8HRS PRN IV NAUSEA/VOMITING; Start at 12:45; Stop 03/18/18 at 08:16; Status DC Potassium Chloride (Klor-Con) 40 meq 1X ONCE PO Last administered on at 17:45; Start 03/15/18 at 14:30; Stop 03/15/18 at 14:31; Status DC Methylprednisolone Acetate (DEPO-Medrol 40MG VIAL) 40 mg 1X ONCE INJ ; Start 03/16/18 at 12:00; Stop 03/16/18 at 12:01; Status DC Methylprednisolone Acetate (DEPO-Medrol 40MG VIAL) 40 mg 1X ONCE INJ ; Start 03/16/18 at 12:00; Stop 03/16/18 at 12:01; Status DC Bupivacaine HCl (Sensorcaine-Mpf 0.25%) 10 ml 1X ONCE IJ ; Start 03/16/18 at 12:00; Stop 03/16/18 at 12:01; Status DC Polysaccharide Iron Complex (Niferex 150) 150 mg BID PO Last administered on at 08:50; Start 03/16/18 at 12:00 Ceftriaxone Sodium 1 gm/ Dextrose 50 ml @ 100 mls/hr Q24H IV ; Start 03/16/18 at 12:45; Stop 03/16/18 at 12:50; Status DC Ceftriaxone Sodium (Rocephin) 1 gm Q24H IVP Last administered on 03/16/18at 16: 51; Start 03/16/18 at 13:00; Stop 03/17/18 at 10:44; Status DC Insulin Human Lispro (HumaLOG) 0-9 UNITS TIDWMEALS SQ Last administered on at 12:19; Start 03/17/18 at 08:30 Dextrose (Dextrose 50%-Water Syringe) 12.5 gm PRN Q15MIN PRN IV SEE COMMENTS; Start 03/17/18 at 08:15 Acetaminophen/ Hydrocodone Bitart (Lortab 10/325) 1 tab PRN Q6HRS PRN PO SEVERE PAIN Last administered on 03/20/18at 08:53; Start 03/17/18 at 10:00 Naproxen (Naprosyn) 250 mg BID PO ; Start 03/17/18 at 10:00; Stop 03/17/18 at 10:00; Status DC Tramadol HCl (Ultram) 50 mg PRN Q6HRS PRN PO MILD PAIN Last administered on at 21:01; Start 03/17/18 at 10:00 Lidocaine (Lidoderm) 1 patch DAILY TD Last administered on 03/20/18at 08:52; Start 03/18/18 at 09:00 Miscellaneous (Lidoderm Patch Removal) 1 ea QHS MC Last administered on at 20:01; Start 03/18/18 at 21:00 Ondansetron HCl (Zofran) 4 mg PRN Q6HRS PRN IV NAUSEA/VOMITING Last administered on 03/18/18at 09:19; Start 03/18/18 at 08:30; Stop 03/19/18 at 15 :09; Status DC Metoclopramide HCl (Reglan) 5 mg TIDAC PO Last administered on 03/20/18at 11:35 ; Start 03/18/18 at 11:30 Acetaminophen (Tylenol) 650 mg PRN Q6HRS PRN PO FEVER Last administered on at 11:36; Start 03/19/18 at 15:15 Ondansetron HCl (Zofran) 4 mg PRN Q6HRS PRN IV NAUSEA/VOMITING; Start at 15:15 Morphine Sulfate (Morphine Sulfate) 2 mg PRN Q2HR PRN IV MODERATE TO SEVERE PAIN; Start 03/19/18 at 15:15 Tramadol HCl (Ultram) 50 mg PRN Q6HRS PRN PO MILD TO MODERATE PAIN; Start at 15:15; Stop 03/19/18 at 19:19; Status DC Docusate Sodium (Colace) 100 mg PRN DAILY PRN PO CONSTIPATION 1ST CHOICE; Start 03/19/18 at 15:15 Al Hydroxide/Mg Hydroxide (Mylanta Plus Xs) 30 ml PRN Q2HR PRN PO HEARTBURN / GAS Last administered on 03/20/18at 11:36; Start 03/20/18 at 10:45 Senna/Docusate Sodium (Senna Plus) 1 tab BID PO Last administered on at 11:35; Start 03/20/18 at 11:30 Docusate Sodium (Colace) 100 mg BID PO Last administered on 03/20/18at 11:35; Start 03/20/18 at 11:30 Magnesium Hydroxide (Milk Of Magnesia) 2,400 mg PRN Q12HR PRN PO CONSTIPATION 2ND CHOICE; Start 03/20/18 at 10:45 Active Scripts Active Reported Potassium Chloride 20 Meq Tablet.er 20 Meq PO DAILY Magnesium (Magnesium Oxide) 400 Mg Capsule 1 Cap PO DAILY Amitriptyline Hcl 75 Mg Tablet 1 Tab PO QHS Levemir (Insulin Detemir) 100 Unit/1 Ml Vial 30 Unit SQ HS Aspir-Low (Aspirin) 81 Mg Tablet.dr 1 Tab PO DAILY Carvedilol 25 Mg Tablet 1 Tab PO BID Humalog (Insulin Lispro) 100 Unit/1 Ml Insuln.pen 10 Unit SQ TIDWMEALS Allopurinol 300 Mg Tablet 1 Tab PO DAILY Furosemide 40 Mg Tablet 1 Tab PO DAILY Fluoxetine Hcl 20 Mg Tablet 1 Tab PO DAILY Amlodipine Besylate 10 Mg Tablet 10 Mg PO DAILY Bactrim Ds Tablet (Sulfamethoxazole/Trimethoprim) 1 Each Tablet 1 Tab PO DAILY Vitals/I & O Vital Sign - Last 24 Hours 03/19/18 03/19/18 03/19/18 03/19/18 15:00 17:00 17:24 19:00 Temp 97.4 98.4 97.4 98.4 Pulse 57 52 52 54 Resp 18 16 B/P (MAP) 124/61 (82) 105/69 105/69 (81) 137/61 (86) Pulse Ox 99 100 O2 Delivery Nasal Cannula Nasal Cannula 03/19/18 03/19/18 03/19/18 03/20/18 20:00 20:02 23:00 02:00 Temp 97.4 97.4 Pulse 60 Resp 18 18 18 B/P (MAP) 140/70 (93) Pulse Ox 99 98 98 O2 Delivery Nasal Cannula Nasal Cannula Nasal Cannula Nasal Cannula O2 Flow Rate 2.0 2.0 2.0 2.0 03/20/18 03/20/18 03/20/18 03/20/18 03:00 07:00 08:00 08:48 Temp 97.9 98.0 97.9 98.0 Pulse 63 68 68 Resp 18 18 B/P (MAP) 160/91 (114) 161/88 (112) 161/88 Pulse Ox 99 98 O2 Delivery Nasal Cannula Nasal Cannula Nasal Cannula O2 Flow Rate 2.0 2.0 03/20/18 03/20/18 03/20/18 03/20/18 08:51 08:53 09:53 11:00 Temp 97.4 97.4 Pulse 68 56 Resp 20 20 18 B/P (MAP) 161/88 97/64 (75) Pulse Ox 98 98 98 O2 Delivery Nasal Cannula Nasal Cannula Nasal Cannula O2 Flow Rate 2.0 2.0 Intake and Output 03/19/18 03/19/18 03/20/18 15:00 23:00 07:00 Intake Total 0 ml 360 ml 600 ml Balance 0 ml 360 ml 600 ml SANDRA CINTRON MD Mar 20, 2018 14:45
[2018-03-20 15:00] VITALS: BP 140/80
[2018-03-20] MEDS: diphenhydrAMINE HCL 25 MG CAPSULE PO PRN ×2 (15:37→23:03)
[2018-03-20 19:00] VITALS: BP 150/80
[2018-03-20] MEDS: PATCH REMOVAL. MC SCH (20:59)
[2018-03-20] MEDS: INSULIN GLARGINE 300 UNITS/3 ML INSULN.PEN. SQ SCH (21:04)
[2018-03-20 23:00] VITALS: BP 165/77
[2018-03-21] VITALS (7 sets, daily range): BP systolic 107–172; BP diastolic 71–84
[2018-03-21] MEDS: HYDROcodone/APAP 10/325 1 TAB TABLET PO PRN ×4 (00:07→21:39)
[2018-03-21 06:01] LABS: CALCIUM 9.1 mg/dL (8.5-10.1); CREATININE 1.2 mg/dL (0.6-1.0); GFR 53.4; POTASSIUM 3.9 mmol/L (3.5-5.1)
[2018-03-21 06:15] LABS: BASO % 1 % (0-3); EOS % 1 % (0-3); HEMATOCRIT 32.8 % (36.0-47.0); HEMOGLOBIN 10.6 g/dL (12.0-15.5); LYMPH # 0.9 x10^3/uL (1.0-4.8); LYMPH % 17 % (24-48); MEAN CORPUSCULAR HEMOGLOBIN 27 pg (25-35); MEAN CORPUSCULAR HGB CONC 32 g/dL (31-37); MEAN CORPUSCULAR VOLUME 82 fL (79-100); MONO # 0.4 x10^3/uL (0.0-1.1); MONO % 9 % (0-9); NEUT # 3.7 x10^3uL (1.8-7.7); NEUT % 73 % (31-73); PLATELET COUNT 237 x10^3/uL (140-400); RED BLOOD COUNT 3.98 x10^6/uL (3.50-5.40); WHITE BLOOD COUNT 5.1 x10^3/uL (4.0-11.0)
[2018-03-21] MEDS: PANTOPRAZOLE 40 MG TABLET.DR. PO SCH (06:17)
[2018-03-21] MEDS: METOCLOPRAMIDE 5 MG TABLET. PO SCH ×3 (06:17→17:55)
[2018-03-21] MEDS: diphenhydrAMINE HCL 25 MG CAPSULE PO PRN ×2 (06:17→15:11)
[2018-03-21] MEDS: MAG HYDROX/ALUMINUM HYD/SIMETH 30 ML ORAL.SUSP PO PRN (09:10)
[2018-03-21] MEDS: CARVEDILOL 12.5 MG TABLET. PO SCH ×2 (09:12→17:54)
[2018-03-21] MEDS: SMZ/TMP 800/160MG TABLET. PO SCH (09:15)
[2018-03-21] MEDS: POTASSIUM CHLORIDE 20 MEQ TABLET.ER. PO SCH (09:15)
[2018-03-21] MEDS: FUROSEMIDE 40 MG TABLET. PO SCH (09:16)
[2018-03-21] MEDS: LACTOBACILLUS RHAMNOSUS GG 1 CAPSULE. PO SCH ×2 (09:16→21:38)
[2018-03-21] MEDS: MAGNESIUM OXIDE 400 MG TABLET PO SCH (09:16)
[2018-03-21] MEDS: DOCUSATE SODIUM 100 MG CAPSULE. PO SCH ×2 (09:16→21:38)
[2018-03-21] MEDS: IRON POLYSACCHARIDE COMPLEX 150 MG CAPSULE PO SCH ×2 (09:16→21:38)
[2018-03-21] MEDS: FLUoxetine HCL 20 MG CAPSULE PO SCH (09:17)
[2018-03-21] MEDS: SENNOSIDES/DOCUSATE 8.6/50MG TABLET. PO SCH ×2 (09:17→21:39)
[2018-03-21] MEDS: amLODIPine BESYLATE 10 MG TABLET PO SCH (09:17)
[2018-03-21] MEDS: DICLOFENAC SODIUM 1% TOPICAL GEL 100GM TUBE. TP SCH ×2 (09:18→21:40)
[2018-03-21] MEDS: LIDOCAINE (700MG/PATCH) PATCH. TD SCH (09:18)
[2018-03-21] MEDS: INSULIN LISPRO 300 UNITS/3 ML INSULN.PEN. SQ SCH ×6 (09:23→17:56)
--- NOTE | 2018-03-21 10:00 | PDOC ---
PROGRESS NOTES Subjective Subjective She still admits squeezy stomach. Objective Objective Vital Signs Date Time Temp Pulse Resp B/P (MAP) Pulse Ox O2 Delivery O2 Flow Rate FiO2 03/21/18 09:17 59 141/75 03/21/18 07:17 20 100 Nasal Cannula 2.0 03/21/18 07:00 98.0 98.0 Intake and Output 03/21/18 07:00 Intake Total 2480 ml Balance 2480 ml Intake Oral 2480 ml # Voids 8 Physical Exam Physical Exam She is alert,sitting in bed with head end of bed elevated and she is not getting up much. Assessment Assessment Problems Medical Problems: (1) Abdominal pain Status: Acute (2) Anemia Status: Acute (3) Hypokalemia Status: Acute (4) Morbid obesity Status: Acute Plan Plan of Care To get her up as tolerated. Comment Review of Relevant I have reviewed the following items miranda (where applicable) has been applied. Labs Laboratory Tests Test 03/19/18 12:50 03/19/18 13:00 03/19/18 17:21 03/19/18 19:57 Glucose (Fingerstick) 144 mg/dL (70-99) 149 mg/dL (70-99) 208 mg/dL (70-99) 169 mg/dL (70-99) Test 03/20/18 05:15 03/20/18 07:45 03/20/18 17:25 03/20/18 20:56 White Blood Count 5.1 x10^3/uL (4.0-11.0) Red Blood Count 4.01 x10^6/uL (3.50-5.40) Hemoglobin 11.1 g/dL (12.0-15.5) Hematocrit 32.9 % (36.0-47.0) Mean Corpuscular Volume 82 fL (79-100) Mean Corpuscular Hemoglobin 28 pg (25-35) Mean Corpuscular Hemoglobin Concent 34 g/dL (31-37) Red Cell Distribution Width 16.8 % (11.5-14.5) Platelet Count 224 x10^3/uL (140-400) Neutrophils (%) (Auto) 73 % (31-73) Lymphocytes (%) (Auto) 17 % (24-48) Monocytes (%) (Auto) 9 % (0-9) Eosinophils (%) (Auto) 1 % (0-3) Basophils (%) (Auto) 1 % (0-3) Neutrophils # (Auto) 3.8 x10^3uL (1.8-7.7) Lymphocytes # (Auto) 0.8 x10^3/uL (1.0-4.8) Monocytes # (Auto) 0.4 x10^3/uL (0.0-1.1) Eosinophils # (Auto) 0.0 x10^3/uL (0.0-0.7) Basophils # (Auto) 0.1 x10^3/uL (0.0-0.2) Sodium Level 136 mmol/L (136-145) Potassium Level 3.7 mmol/L (3.5-5.1) Chloride Level 96 mmol/L (98-107) Carbon Dioxide Level 33 mmol/L (21-32) Anion Gap 7 (6-14) Blood Urea Nitrogen 11 mg/dL (7-20) Creatinine 1.2 mg/dL (0.6-1.0) Estimated GFR (Cockcroft-Gault) 53.4 Glucose Level 164 mg/dL (70-99) Calcium Level 9.0 mg/dL (8.5-10.1) Glucose (Fingerstick) 175 mg/dL (70-99) 112 mg/dL (70-99) 187 mg/dL (70-99) Test 03/21/18 05:30 03/21/18 07:19 White Blood Count 5.1 x10^3/uL (4.0-11.0) Red Blood Count 3.98 x10^6/uL (3.50-5.40) Hemoglobin 10.6 g/dL (12.0-15.5) Hematocrit 32.8 % (36.0-47.0) Mean Corpuscular Volume 82 fL (79-100) Mean Corpuscular Hemoglobin 27 pg (25-35) Mean Corpuscular Hemoglobin Concent 32 g/dL (31-37) Red Cell Distribution Width 17.0 % (11.5-14.5) Platelet Count 237 x10^3/uL (140-400) Neutrophils (%) (Auto) 73 % (31-73) Lymphocytes (%) (Auto) 17 % (24-48) Monocytes (%) (Auto) 9 % (0-9) Eosinophils (%) (Auto) 1 % (0-3) Basophils (%) (Auto) 1 % (0-3) Neutrophils # (Auto) 3.7 x10^3uL (1.8-7.7) Lymphocytes # (Auto) 0.9 x10^3/uL (1.0-4.8) Monocytes # (Auto) 0.4 x10^3/uL (0.0-1.1) Eosinophils # (Auto) 0.0 x10^3/uL (0.0-0.7) Basophils # (Auto) 0.0 x10^3/uL (0.0-0.2) Sodium Level 136 mmol/L (136-145) Potassium Level 3.9 mmol/L (3.5-5.1) Chloride Level 95 mmol/L (98-107) Carbon Dioxide Level 36 mmol/L (21-32) Anion Gap 5 (6-14) Blood Urea Nitrogen 12 mg/dL (7-20) Creatinine 1.2 mg/dL (0.6-1.0) Estimated GFR (Cockcroft-Gault) 53.4 Glucose Level 150 mg/dL (70-99) Calcium Level 9.1 mg/dL (8.5-10.1) Glucose (Fingerstick) 153 mg/dL (70-99) Laboratory Tests Test 03/20/18 17:25 03/20/18 20:56 03/21/18 05:30 03/21/18 07:19 Glucose (Fingerstick) 112 mg/dL (70-99) 187 mg/dL (70-99) 153 mg/dL (70-99) White Blood Count 5.1 x10^3/uL (4.0-11.0) Red Blood Count 3.98 x10^6/uL (3.50-5.40) Hemoglobin 10.6 g/dL (12.0-15.5) Hematocrit 32.8 % (36.0-47.0) Mean Corpuscular Volume 82 fL (79-100) Mean Corpuscular Hemoglobin 27 pg (25-35) Mean Corpuscular Hemoglobin Concent 32 g/dL (31-37) Red Cell Distribution Width 17.0 % (11.5-14.5) Platelet Count 237 x10^3/uL (140-400) Neutrophils (%) (Auto) 73 % (31-73) Lymphocytes (%) (Auto) 17 % (24-48) Monocytes (%) (Auto) 9 % (0-9) Eosinophils (%) (Auto) 1 % (0-3) Basophils (%) (Auto) 1 % (0-3) Neutrophils # (Auto) 3.7 x10^3uL (1.8-7.7) Lymphocytes # (Auto) 0.9 x10^3/uL (1.0-4.8) Monocytes # (Auto) 0.4 x10^3/uL (0.0-1.1) Eosinophils # (Auto) 0.0 x10^3/uL (0.0-0.7) Basophils # (Auto) 0.0 x10^3/uL (0.0-0.2) Sodium Level 136 mmol/L (136-145) Potassium Level 3.9 mmol/L (3.5-5.1) Chloride Level 95 mmol/L (98-107) Carbon Dioxide Level 36 mmol/L (21-32) Anion Gap 5 (6-14) Blood Urea Nitrogen 12 mg/dL (7-20) Creatinine 1.2 mg/dL (0.6-1.0) Estimated GFR (Cockcroft-Gault) 53.4 Glucose Level 150 mg/dL (70-99) Calcium Level 9.1 mg/dL (8.5-10.1) Microbiology 03/15/18 Fecal Leukocyte Stain - Final, Complete 03/13/18 Urine Culture - Final, Complete 03/13/18 Urine Culture Result 1 (HOWIE) - Final, Complete 03/13/18 Antimicrobic Susceptibility - Final, Complete Medications Current Medications Magnesium Sulfate 50 ml @ 25 mls/hr 1X ONCE IV Last administered on at 22:40; Start 03/13/18 at 12:00; Stop 03/13/18 at 13:59; Status DC Potassium Chloride (Klor-Con) 40 meq 1X ONCE PO Last administered on at 14:17; Start 03/13/18 at 12:00; Stop 03/13/18 at 12:03; Status DC Potassium Chloride/Water 50 ml @ 25 mls/hr Q2H IV Last administered on at 22:03; Start 03/13/18 at 14:00; Stop 03/13/18 at 17:59; Status DC Lidocaine/Sodium Bicarbonate (Buffered Lidocaine 1%) 3 ml STK-MED ONCE .ROUTE ; Start 03/13/18 at 15:54; Stop 03/13/18 at 15:55; Status DC Lidocaine/Sodium Bicarbonate (Buffered Lidocaine 1%) 3 ml 1X ONCE INJ Last administered on 03/13/18at 16:15; Start 03/13/18 at 16:15; Stop 03/13/18 at 16 :17; Status DC Allopurinol (Zyloprim) 300 mg DAILY PO ; Start 03/14/18 at 09:00; Stop at 09:00; Status DC Amlodipine Besylate (Norvasc) 10 mg DAILY PO Last administered on 03/21/18at 09 :17; Start 03/14/18 at 09:00 Aspirin (Ecotrin) 81 mg DAILY PO Last administered on 03/17/18at 08:49; Start 03/14/18 at 09:00; Stop 03/17/18 at 09:54; Status DC Furosemide (Lasix) 40 mg DAILY PO Last administered on 03/21/18 09:16; Start 03/14/18 at 09:00 Insulin Human Lispro (HumaLOG) 10 units TIDWMEALS SQ Last administered on 03/21at 09:24; Start 03/14/18 at 08:00 Trimethoprim/ Sulfamethoxazole (Bactrim Ds) 1 tab DAILY PO Last administered on 03/21/18 09:15; Start 03/14/18 at 09:00; Stop 03/25/18 at 09:01 Amitriptyline HCl (Elavil) 75 mg QHS PO ; Start 03/13/18 at 21:00; Stop at 21:00; Status DC Carvedilol (Coreg) 25 mg BIDWMEALS PO Last administered on 03/21/18at 09:12; Start 03/13/18 at 19:30 Fluoxetine HCl (PROzac) 20 mg DAILY PO Last administered on 03/21/18 09:17; Start 03/14/18 at 09:00 Insulin Glargine (Lantus) 30 units QHS SQ Last administered on 03/20/18at 21:04 ; Start 03/13/18 at 21:00 Magnesium Oxide (Magnesium Oxide) 400 mg DAILY PO Last administered on at 09:16; Start 03/14/18 at 09:00 Potassium Chloride (Klor-Con) 20 meq DAILYWBKFT PO Last administered on at 09:15; Start 03/14/18 at 08:00 Acetaminophen/ Hydrocodone Bitart (Lortab 5/325) 1 tab PRN Q4HRS PRN PO MODERATE PAIN Last administered on 03/18/18at 00:32; Start 03/13/18 at 19:15 Pantoprazole Sodium (PROTONIX VIAL for IV PUSH) 40 mg DAILYAC IVP Last administered on 03/14/18at 08:34; Start 03/14/18 at 07:30; Stop 03/14/18 at 11 :49; Status DC Lactobacillus Rhamnosus (Culturelle) 1 cap BID PO Last administered on at 09:16; Start 03/14/18 at 09:00 Pantoprazole Sodium (Protonix) 40 mg DAILYAC PO Last administered on at 06:17; Start 03/15/18 at 07:30 Diclofenac Sodium (Voltaren) 1 elroy BID TP Last administered on 03/21/18at 09:18 ; Start 03/14/18 at 16:00 Ondansetron HCl (Zofran) 4 mg PRN Q8HRS PRN IV NAUSEA/VOMITING; Start at 12:45; Stop 03/18/18 at 08:16; Status DC Potassium Chloride (Klor-Con) 40 meq 1X ONCE PO Last administered on at 17:45; Start 03/15/18 at 14:30; Stop 03/15/18 at 14:31; Status DC Methylprednisolone Acetate (DEPO-Medrol 40MG VIAL) 40 mg 1X ONCE INJ ; Start 03/16/18 at 12:00; Stop 03/16/18 at 12:01; Status DC Methylprednisolone Acetate (DEPO-Medrol 40MG VIAL) 40 mg 1X ONCE INJ ; Start 03/16/18 at 12:00; Stop 03/16/18 at 12:01; Status DC Bupivacaine HCl (Sensorcaine-Mpf 0.25%) 10 ml 1X ONCE IJ ; Start 03/16/18 at 12:00; Stop 03/16/18 at 12:01; Status DC Polysaccharide Iron Complex (Niferex 150) 150 mg BID PO Last administered on at 09:16; Start 03/16/18 at 12:00 Ceftriaxone Sodium 1 gm/ Dextrose 50 ml @ 100 mls/hr Q24H IV ; Start 03/16/18 at 12:45; Stop 03/16/18 at 12:50; Status DC Ceftriaxone Sodium (Rocephin) 1 gm Q24H IVP Last administered on 03/16/18at 16: 51; Start 03/16/18 at 13:00; Stop 03/17/18 at 10:44; Status DC Insulin Human Lispro (HumaLOG) 0-9 UNITS TIDWMEALS SQ Last administered on at 09:23; Start 03/17/18 at 08:30 Dextrose (Dextrose 50%-Water Syringe) 12.5 gm PRN Q15MIN PRN IV SEE COMMENTS; Start 03/17/18 at 08:15 Acetaminophen/ Hydrocodone Bitart (Lortab 10/325) 1 tab PRN Q6HRS PRN PO SEVERE PAIN Last administered on 03/21/18at 06:17; Start 03/17/18 at 10:00 Naproxen (Naprosyn) 250 mg BID PO ; Start 03/17/18 at 10:00; Stop 03/17/18 at 10:00; Status DC Tramadol HCl (Ultram) 50 mg PRN Q6HRS PRN PO MILD PAIN Last administered on at 21:01; Start 03/17/18 at 10:00 Lidocaine (Lidoderm) 1 patch DAILY TD Last administered on 03/21/18at 09:18; Start 03/18/18 at 09:00 Miscellaneous (Lidoderm Patch Removal) 1 ea QHS MC Last administered on at 20:59; Start 03/18/18 at 21:00 Ondansetron HCl (Zofran) 4 mg PRN Q6HRS PRN IV NAUSEA/VOMITING Last administered on 03/18/18at 09:19; Start 03/18/18 at 08:30; Stop 03/19/18 at 15 :09; Status DC Metoclopramide HCl (Reglan) 5 mg TIDAC PO Last administered on 03/21/18at 06:17 ; Start 03/18/18 at 11:30 Acetaminophen (Tylenol) 650 mg PRN Q6HRS PRN PO FEVER Last administered on at 11:36; Start 03/19/18 at 15:15 Ondansetron HCl (Zofran) 4 mg PRN Q6HRS PRN IV NAUSEA/VOMITING; Start at 15:15 Morphine Sulfate (Morphine Sulfate) 2 mg PRN Q2HR PRN IV MODERATE TO SEVERE PAIN; Start 03/19/18 at 15:15 Tramadol HCl (Ultram) 50 mg PRN Q6HRS PRN PO MILD TO MODERATE PAIN; Start at 15:15; Stop 03/19/18 at 19:19; Status DC Docusate Sodium (Colace) 100 mg PRN DAILY PRN PO CONSTIPATION 1ST CHOICE; Start 03/19/18 at 15:15 Al Hydroxide/Mg Hydroxide (Mylanta Plus Xs) 30 ml PRN Q2HR PRN PO HEARTBURN / GAS Last administered on 03/21/18at 09:10; Start 03/20/18 at 10:45 Senna/Docusate Sodium (Senna Plus) 1 tab BID PO Last administered on at 09:17; Start 03/20/18 at 11:30 Docusate Sodium (Colace) 100 mg BID PO Last administered on 03/21/18at 09:16; Start 03/20/18 at 11:30 Magnesium Hydroxide (Milk Of Magnesia) 2,400 mg PRN Q12HR PRN PO CONSTIPATION 2ND CHOICE; Start 03/20/18 at 10:45 Diphenhydramine HCl (Benadryl) 25 mg PRN Q6HRS PRN PO ITCHING Last administered on 03/21/18at 06:17; Start 03/20/18 at 15:15 Active Scripts Active Reported Potassium Chloride 20 Meq Tablet.er 20 Meq PO DAILY Magnesium (Magnesium Oxide) 400 Mg Capsule 1 Cap PO DAILY Amitriptyline Hcl 75 Mg Tablet 1 Tab PO QHS Levemir (Insulin Detemir) 100 Unit/1 Ml Vial 30 Unit SQ HS Aspir-Low (Aspirin) 81 Mg Tablet.dr 1 Tab PO DAILY Carvedilol 25 Mg Tablet 1 Tab PO BID Humalog (Insulin Lispro) 100 Unit/1 Ml Insuln.pen 10 Unit SQ TIDWMEALS Allopurinol 300 Mg Tablet 1 Tab PO DAILY Furosemide 40 Mg Tablet 1 Tab PO DAILY Fluoxetine Hcl 20 Mg Tablet 1 Tab PO DAILY Amlodipine Besylate 10 Mg Tablet 10 Mg PO DAILY Bactrim Ds Tablet (Sulfamethoxazole/Trimethoprim) 1 Each Tablet 1 Tab PO DAILY Vitals/I & O Vital Sign - Last 24 Hours 03/20/18 03/20/18 03/20/18 03/20/18 11:00 15:00 16:22 17:33 Temp 97.4 97.9 97.4 97.9 Pulse 56 62 62 Resp 18 18 20 B/P (MAP) 97/64 (75) 140/80 (100) 140/80 Pulse Ox 98 98 98 O2 Delivery Nasal Cannula Nasal Cannula Nasal Cannula O2 Flow Rate 2.0 03/20/18 03/20/18 03/20/18 03/21/18 19:00 19:38 23:00 00:07 Temp 97.9 97.9 97.9 97.9 Pulse 55 58 Resp 18 18 18 B/P (MAP) 150/80 (103) 165/77 (106) Pulse Ox 100 99 99 O2 Delivery Nasal Cannula Nasal Cannula Nasal Cannula Nasal Cannula O2 Flow Rate 2.0 2.0 03/21/18 03/21/18 03/21/18 03/21/18 03:00 06:17 07:00 07:17 Temp 97.9 98.0 97.9 98.0 Pulse 70 59 Resp 18 18 18 20 B/P (MAP) 172/75 (107) 141/75 (97) Pulse Ox 100 100 100 100 O2 Delivery Nasal Cannula Nasal Cannula Nasal Cannula Nasal Cannula O2 Flow Rate 2.0 2.0 2.0 03/21/18 03/21/18 09:12 09:17 Pulse 59 59 B/P (MAP) 141/75 141/75 Intake and Output 03/20/18 03/20/18 03/21/18 15:00 23:00 07:00 Intake Total 180 ml 1000 ml 1300 ml Balance 180 ml 1000 ml 1300 ml SANDRA CINTRON MD Mar 21, 2018 10:00
--- NOTE | 2018-03-21 10:14 | PDOC ---
Subjective: Subjective: Says still feels queasy but ate yogurt and cream of wheat today. Reports normal stool yesterday. Mylanta helps. Wants ice water. Objective: Objective: Per RN - back on stool softeners. Vital Signs: Vital Signs Date Time Temp Pulse Resp B/P (MAP) Pulse Ox O2 Delivery O2 Flow Rate FiO2 03/21/18 09:17 59 141/75 03/21/18 07:17 20 100 Nasal Cannula 2.0 03/21/18 07:00 98.0 98.0 Labs: Laboratory Tests Test 03/20/18 17:25 03/20/18 20:56 03/21/18 05:30 03/21/18 07:19 Glucose (Fingerstick) 112 mg/dL 187 mg/dL 153 mg/dL White Blood Count 5.1 x10^3/uL Red Blood Count 3.98 x10^6/uL Hemoglobin 10.6 g/dL Hematocrit 32.8 % Mean Corpuscular Volume 82 fL Mean Corpuscular Hemoglobin 27 pg Mean Corpuscular Hemoglobin Concent 32 g/dL Red Cell Distribution Width 17.0 % Platelet Count 237 x10^3/uL Neutrophils (%) (Auto) 73 % Lymphocytes (%) (Auto) 17 % Monocytes (%) (Auto) 9 % Eosinophils (%) (Auto) 1 % Basophils (%) (Auto) 1 % Neutrophils # (Auto) 3.7 x10^3uL Lymphocytes # (Auto) 0.9 x10^3/uL Monocytes # (Auto) 0.4 x10^3/uL Eosinophils # (Auto) 0.0 x10^3/uL Basophils # (Auto) 0.0 x10^3/uL Sodium Level 136 mmol/L Potassium Level 3.9 mmol/L Chloride Level 95 mmol/L Carbon Dioxide Level 36 mmol/L Anion Gap 5 Blood Urea Nitrogen 12 mg/dL Creatinine 1.2 mg/dL Estimated GFR (Cockcroft-Gault) 53.4 Glucose Level 150 mg/dL Calcium Level 9.1 mg/dL Imaging: GES Impression: Normal gastric emptying. No evidence of delayed gastric emptying. PE: GEN: NAD - eating yogurt LUNGS: CTAB HEART: RRR ABD: obese, doesn't seem tender NEURO/PSYCH: A & O 3 A/P: Nausea/dyspepsia - better Chronic ROMINA - stable, 'scopes in the past -- Improved. DC per primary. Would continue PPI. TYRA EDGAR Mar 21, 2018 10:14
--- NOTE | 2018-03-21 13:48 | PDOC ---
PROGRESS NOTES Chief Complaint Chief Complaint EPIGASTRIC PAIN WITH DARK STOOLS - NO MORE RECURRENCE Acute on chronic back pain, s/p injections by physiatry diarrhea with hypokalemia RESOLVED ACUTE ON CHRONIC NAUSEA r/o GASTROPARESIS Diabetes type 2 on insulin-uncontrolled -unknown [id number] Generalized weakness, - has HH and 24/hr care MOrbid Obesity BMI 63 - bariatric bed chronic pain with fibromyalgia plan: fu with dr. Lee, gi GES neg, consider dc reglan if ok with gi on lantus, novolog, ssi ptot on ppi add stool softner. pt c/o dark stool before, neg FOBT. i talked to gi, not much can offer in the hosp, plan to dc , but pt said pain . will cont ob today, dc tmr. History of Present Illness History of Present Illness Was unable to produce PICC with physical therapy because of postop pain She claims back pain much better since injections by physiatry Blood sugars are much better with adjustments here throughout her stay has fibromyalgia chronic back pain. still c/o diffuse abd pain, 12/29, eats ok today although told me yesterday has dysphagia GES neg abd pain better with mylanta. no bm for 2-3ds after diarrhea resolved, then has one BM yesterday with stool softner Vitals Vitals Vital Signs Date Time Temp Pulse Resp B/P (MAP) Pulse Ox O2 Delivery O2 Flow Rate FiO2 03/21/18 11:45 97.9 56 18 107/84 (92) 100 Room Air 97.9 03/21/18 08:00 2.0 Physical Exam General: Alert, Oriented X3, Cooperative, No acute distress, mild distress Heart: Regular rate, Normal S1, Normal S2 Lungs: Clear Abdomen: Normal bowel sounds, Soft Extremities: No clubbing, No cyanosis Skin: No significant lesion Labs LABS Laboratory Tests Test 03/20/18 17:25 03/20/18 20:56 03/21/18 05:30 03/21/18 07:19 Glucose (Fingerstick) 112 mg/dL (70-99) 187 mg/dL (70-99) 153 mg/dL (70-99) White Blood Count 5.1 x10^3/uL (4.0-11.0) Red Blood Count 3.98 x10^6/uL (3.50-5.40) Hemoglobin 10.6 g/dL (12.0-15.5) Hematocrit 32.8 % (36.0-47.0) Mean Corpuscular Volume 82 fL (79-100) Mean Corpuscular Hemoglobin 27 pg (25-35) Mean Corpuscular Hemoglobin Concent 32 g/dL (31-37) Red Cell Distribution Width 17.0 % (11.5-14.5) Platelet Count 237 x10^3/uL (140-400) Neutrophils (%) (Auto) 73 % (31-73) Lymphocytes (%) (Auto) 17 % (24-48) Monocytes (%) (Auto) 9 % (0-9) Eosinophils (%) (Auto) 1 % (0-3) Basophils (%) (Auto) 1 % (0-3) Neutrophils # (Auto) 3.7 x10^3uL (1.8-7.7) Lymphocytes # (Auto) 0.9 x10^3/uL (1.0-4.8) Monocytes # (Auto) 0.4 x10^3/uL (0.0-1.1) Eosinophils # (Auto) 0.0 x10^3/uL (0.0-0.7) Basophils # (Auto) 0.0 x10^3/uL (0.0-0.2) Sodium Level 136 mmol/L (136-145) Potassium Level 3.9 mmol/L (3.5-5.1) Chloride Level 95 mmol/L (98-107) Carbon Dioxide Level 36 mmol/L (21-32) Anion Gap 5 (6-14) Blood Urea Nitrogen 12 mg/dL (7-20) Creatinine 1.2 mg/dL (0.6-1.0) Estimated GFR (Cockcroft-Gault) 53.4 Glucose Level 150 mg/dL (70-99) Calcium Level 9.1 mg/dL (8.5-10.1) Test 03/21/18 11:03 Glucose (Fingerstick) 162 mg/dL (70-99) Assessment and Plan Assessmemt and Plan Problems Medical Problems: (1) Abdominal pain Status: Acute (2) Anemia Status: Acute (3) Hypokalemia Status: Acute (4) Morbid obesity Status: Acute Comment Review of Relevant I have reviewed the following items miranda (where applicable) has been applied. Labs Laboratory Tests Test 03/19/18 17:21 03/19/18 19:57 03/20/18 05:15 03/20/18 07:45 Glucose (Fingerstick) 208 mg/dL (70-99) 169 mg/dL (70-99) 175 mg/dL (70-99) White Blood Count 5.1 x10^3/uL (4.0-11.0) Red Blood Count 4.01 x10^6/uL (3.50-5.40) Hemoglobin 11.1 g/dL (12.0-15.5) Hematocrit 32.9 % (36.0-47.0) Mean Corpuscular Volume 82 fL (79-100) Mean Corpuscular Hemoglobin 28 pg (25-35) Mean Corpuscular Hemoglobin Concent 34 g/dL (31-37) Red Cell Distribution Width 16.8 % (11.5-14.5) Platelet Count 224 x10^3/uL (140-400) Neutrophils (%) (Auto) 73 % (31-73) Lymphocytes (%) (Auto) 17 % (24-48) Monocytes (%) (Auto) 9 % (0-9) Eosinophils (%) (Auto) 1 % (0-3) Basophils (%) (Auto) 1 % (0-3) Neutrophils # (Auto) 3.8 x10^3uL (1.8-7.7) Lymphocytes # (Auto) 0.8 x10^3/uL (1.0-4.8) Monocytes # (Auto) 0.4 x10^3/uL (0.0-1.1) Eosinophils # (Auto) 0.0 x10^3/uL (0.0-0.7) Basophils # (Auto) 0.1 x10^3/uL (0.0-0.2) Sodium Level 136 mmol/L (136-145) Potassium Level 3.7 mmol/L (3.5-5.1) Chloride Level 96 mmol/L (98-107) Carbon Dioxide Level 33 mmol/L (21-32) Anion Gap 7 (6-14) Blood Urea Nitrogen 11 mg/dL (7-20) Creatinine 1.2 mg/dL (0.6-1.0) Estimated GFR (Cockcroft-Gault) 53.4 Glucose Level 164 mg/dL (70-99) Calcium Level 9.0 mg/dL (8.5-10.1) Test 03/20/18 17:25 03/20/18 20:56 03/21/18 05:30 03/21/18 07:19 Glucose (Fingerstick) 112 mg/dL (70-99) 187 mg/dL (70-99) 153 mg/dL (70-99) White Blood Count 5.1 x10^3/uL (4.0-11.0) Red Blood Count 3.98 x10^6/uL (3.50-5.40) Hemoglobin 10.6 g/dL (12.0-15.5) Hematocrit 32.8 % (36.0-47.0) Mean Corpuscular Volume 82 fL (79-100) Mean Corpuscular Hemoglobin 27 pg (25-35) Mean Corpuscular Hemoglobin Concent 32 g/dL (31-37) Red Cell Distribution Width 17.0 % (11.5-14.5) Platelet Count 237 x10^3/uL (140-400) Neutrophils (%) (Auto) 73 % (31-73) Lymphocytes (%) (Auto) 17 % (24-48) Monocytes (%) (Auto) 9 % (0-9) Eosinophils (%) (Auto) 1 % (0-3) Basophils (%) (Auto) 1 % (0-3) Neutrophils # (Auto) 3.7 x10^3uL (1.8-7.7) Lymphocytes # (Auto) 0.9 x10^3/uL (1.0-4.8) Monocytes # (Auto) 0.4 x10^3/uL (0.0-1.1) Eosinophils # (Auto) 0.0 x10^3/uL (0.0-0.7) Basophils # (Auto) 0.0 x10^3/uL (0.0-0.2) Sodium Level 136 mmol/L (136-145) Potassium Level 3.9 mmol/L (3.5-5.1) Chloride Level 95 mmol/L (98-107) Carbon Dioxide Level 36 mmol/L (21-32) Anion Gap 5 (6-14) Blood Urea Nitrogen 12 mg/dL (7-20) Creatinine 1.2 mg/dL (0.6-1.0) Estimated GFR (Cockcroft-Gault) 53.4 Glucose Level 150 mg/dL (70-99) Calcium Level 9.1 mg/dL (8.5-10.1) Test 03/21/18 11:03 Glucose (Fingerstick) 162 mg/dL (70-99) Laboratory Tests Test 03/20/18 17:25 03/20/18 20:56 03/21/18 05:30 03/21/18 07:19 Glucose (Fingerstick) 112 mg/dL (70-99) 187 mg/dL (70-99) 153 mg/dL (70-99) White Blood Count 5.1 x10^3/uL (4.0-11.0) Red Blood Count 3.98 x10^6/uL (3.50-5.40) Hemoglobin 10.6 g/dL (12.0-15.5) Hematocrit 32.8 % (36.0-47.0) Mean Corpuscular Volume 82 fL (79-100) Mean Corpuscular Hemoglobin 27 pg (25-35) Mean Corpuscular Hemoglobin Concent 32 g/dL (31-37) Red Cell Distribution Width 17.0 % (11.5-14.5) Platelet Count 237 x10^3/uL (140-400) Neutrophils (%) (Auto) 73 % (31-73) Lymphocytes (%) (Auto) 17 % (24-48) Monocytes (%) (Auto) 9 % (0-9) Eosinophils (%) (Auto) 1 % (0-3) Basophils (%) (Auto) 1 % (0-3) Neutrophils # (Auto) 3.7 x10^3uL (1.8-7.7) Lymphocytes # (Auto) 0.9 x10^3/uL (1.0-4.8) Monocytes # (Auto) 0.4 x10^3/uL (0.0-1.1) Eosinophils # (Auto) 0.0 x10^3/uL (0.0-0.7) Basophils # (Auto) 0.0 x10^3/uL (0.0-0.2) Sodium Level 136 mmol/L (136-145) Potassium Level 3.9 mmol/L (3.5-5.1) Chloride Level 95 mmol/L (98-107) Carbon Dioxide Level 36 mmol/L (21-32) Anion Gap 5 (6-14) Blood Urea Nitrogen 12 mg/dL (7-20) Creatinine 1.2 mg/dL (0.6-1.0) Estimated GFR (Cockcroft-Gault) 53.4 Glucose Level 150 mg/dL (70-99) Calcium Level 9.1 mg/dL (8.5-10.1) Test 03/21/18 11:03 Glucose (Fingerstick) 162 mg/dL (70-99) Microbiology 03/15/18 Fecal Leukocyte Stain - Final, Complete 03/13/18 Urine Culture - Final, Complete 03/13/18 Urine Culture Result 1 (HOWIE) - Final, Complete 03/13/18 Antimicrobic Susceptibility - Final, Complete Medications Current Medications Magnesium Sulfate 50 ml @ 25 mls/hr 1X ONCE IV Last administered on at 22:40; Start 03/13/18 at 12:00; Stop 03/13/18 at 13:59; Status DC Potassium Chloride (Klor-Con) 40 meq 1X ONCE PO Last administered on at 14:17; Start 03/13/18 at 12:00; Stop 03/13/18 at 12:03; Status DC Potassium Chloride/Water 50 ml @ 25 mls/hr Q2H IV Last administered on at 22:03; Start 03/13/18 at 14:00; Stop 03/13/18 at 17:59; Status DC Lidocaine/Sodium Bicarbonate (Buffered Lidocaine 1%) 3 ml STK-MED ONCE .ROUTE ; Start 03/13/18 at 15:54; Stop 03/13/18 at 15:55; Status DC Lidocaine/Sodium Bicarbonate (Buffered Lidocaine 1%) 3 ml 1X ONCE INJ Last administered on 03/13/18at 16:15; Start 03/13/18 at 16:15; Stop 03/13/18 at 16 :17; Status DC Allopurinol (Zyloprim) 300 mg DAILY PO ; Start 03/14/18 at 09:00; Stop at 09:00; Status DC Amlodipine Besylate (Norvasc) 10 mg DAILY PO Last administered on 03/21/18at 09 :17; Start 03/14/18 at 09:00 Aspirin (Ecotrin) 81 mg DAILY PO Last administered on 03/17/18at 08:49; Start 03/14/18 at 09:00; Stop 03/17/18 at 09:54; Status DC Furosemide (Lasix) 40 mg DAILY PO Last administered on 03/21/18at 09:16; Start 03/14/18 at 09:00 Insulin Human Lispro (HumaLOG) 10 units TIDWMEALS SQ Last administered on 03/21at 12:20; Start 03/14/18 at 08:00 Trimethoprim/ Sulfamethoxazole (Bactrim Ds) 1 tab DAILY PO Last administered on 03/21/18 09:15; Start 03/14/18 at 09:00; Stop 03/25/18 at 09:01 Amitriptyline HCl (Elavil) 75 mg QHS PO ; Start 03/13/18 at 21:00; Stop at 21:00; Status DC Carvedilol (Coreg) 25 mg BIDWMEALS PO Last administered on 03/21/18 09:12; Start 03/13/18 at 19:30 Fluoxetine HCl (PROzac) 20 mg DAILY PO Last administered on 03/21/18 09:17; Start 03/14/18 at 09:00 Insulin Glargine (Lantus) 30 units QHS SQ Last administered on 03/20/18at 21:04 ; Start 03/13/18 at 21:00 Magnesium Oxide (Magnesium Oxide) 400 mg DAILY PO Last administered on 09:16; Start 03/14/18 at 09:00 Potassium Chloride (Klor-Con) 20 meq DAILYWBKFT PO Last administered on at 09:15; Start 03/14/18 at 08:00 Acetaminophen/ Hydrocodone Bitart (Lortab 5/325) 1 tab PRN Q4HRS PRN PO MODERATE PAIN Last administered on 03/18/18at 00:32; Start 03/13/18 at 19:15 Pantoprazole Sodium (PROTONIX VIAL for IV PUSH) 40 mg DAILYAC IVP Last administered on 03/14/18at 08:34; Start 03/14/18 at 07:30; Stop 03/14/18 at 11 :49; Status DC Lactobacillus Rhamnosus (Culturelle) 1 cap BID PO Last administered on at 09:16; Start 03/14/18 at 09:00 Pantoprazole Sodium (Protonix) 40 mg DAILYAC PO Last administered on at 06:17; Start 03/15/18 at 07:30 Diclofenac Sodium (Voltaren) 1 elroy BID TP Last administered on 03/21/18at 09:18 ; Start 03/14/18 at 16:00 Ondansetron HCl (Zofran) 4 mg PRN Q8HRS PRN IV NAUSEA/VOMITING; Start at 12:45; Stop 03/18/18 at 08:16; Status DC Potassium Chloride (Klor-Con) 40 meq 1X ONCE PO Last administered on at 17:45; Start 03/15/18 at 14:30; Stop 03/15/18 at 14:31; Status DC Methylprednisolone Acetate (DEPO-Medrol 40MG VIAL) 40 mg 1X ONCE INJ ; Start 03/16/18 at 12:00; Stop 03/16/18 at 12:01; Status DC Methylprednisolone Acetate (DEPO-Medrol 40MG VIAL) 40 mg 1X ONCE INJ ; Start 03/16/18 at 12:00; Stop 03/16/18 at 12:01; Status DC Bupivacaine HCl (Sensorcaine-Mpf 0.25%) 10 ml 1X ONCE IJ ; Start 03/16/18 at 12:00; Stop 03/16/18 at 12:01; Status DC Polysaccharide Iron Complex (Niferex 150) 150 mg BID PO Last administered on at 09:16; Start 03/16/18 at 12:00 Ceftriaxone Sodium 1 gm/ Dextrose 50 ml @ 100 mls/hr Q24H IV ; Start 03/16/18 at 12:45; Stop 03/16/18 at 12:50; Status DC Ceftriaxone Sodium (Rocephin) 1 gm Q24H IVP Last administered on 03/16/18at 16: 51; Start 03/16/18 at 13:00; Stop 03/17/18 at 10:44; Status DC Insulin Human Lispro (HumaLOG) 0-9 UNITS TIDWMEALS SQ Last administered on at 12:20; Start 03/17/18 at 08:30 Dextrose (Dextrose 50%-Water Syringe) 12.5 gm PRN Q15MIN PRN IV SEE COMMENTS; Start 03/17/18 at 08:15 Acetaminophen/ Hydrocodone Bitart (Lortab 10/325) 1 tab PRN Q6HRS PRN PO SEVERE PAIN Last administered on 03/21/18at 06:17; Start 03/17/18 at 10:00 Naproxen (Naprosyn) 250 mg BID PO ; Start 03/17/18 at 10:00; Stop 03/17/18 at 10:00; Status DC Tramadol HCl (Ultram) 50 mg PRN Q6HRS PRN PO MILD PAIN Last administered on at 21:01; Start 03/17/18 at 10:00 Lidocaine (Lidoderm) 1 patch DAILY TD Last administered on 03/21/18at 09:18; Start 03/18/18 at 09:00 Miscellaneous (Lidoderm Patch Removal) 1 ea QHS MC Last administered on at 20:59; Start 03/18/18 at 21:00 Ondansetron HCl (Zofran) 4 mg PRN Q6HRS PRN IV NAUSEA/VOMITING Last administered on 03/18/18at 09:19; Start 03/18/18 at 08:30; Stop 03/19/18 at 15 :09; Status DC Metoclopramide HCl (Reglan) 5 mg TIDAC PO Last administered on 03/21/18at 11:22 ; Start 03/18/18 at 11:30 Acetaminophen (Tylenol) 650 mg PRN Q6HRS PRN PO FEVER Last administered on at 11:36; Start 03/19/18 at 15:15 Ondansetron HCl (Zofran) 4 mg PRN Q6HRS PRN IV NAUSEA/VOMITING; Start at 15:15 Morphine Sulfate (Morphine Sulfate) 2 mg PRN Q2HR PRN IV MODERATE TO SEVERE PAIN; Start 03/19/18 at 15:15 Tramadol HCl (Ultram) 50 mg PRN Q6HRS PRN PO MILD TO MODERATE PAIN; Start at 15:15; Stop 03/19/18 at 19:19; Status DC Docusate Sodium (Colace) 100 mg PRN DAILY PRN PO CONSTIPATION 1ST CHOICE; Start 03/19/18 at 15:15 Al Hydroxide/Mg Hydroxide (Mylanta Plus Xs) 30 ml PRN Q2HR PRN PO HEARTBURN / GAS Last administered on 03/21/18at 09:10; Start 03/20/18 at 10:45 Senna/Docusate Sodium (Senna Plus) 1 tab BID PO Last administered on at 09:17; Start 03/20/18 at 11:30 Docusate Sodium (Colace) 100 mg BID PO Last administered on 03/21/18at 09:16; Start 03/20/18 at 11:30 Magnesium Hydroxide (Milk Of Magnesia) 2,400 mg PRN Q12HR PRN PO CONSTIPATION 2ND CHOICE; Start 03/20/18 at 10:45 Diphenhydramine HCl (Benadryl) 25 mg PRN Q6HRS PRN PO ITCHING Last administered on 03/21/18at 06:17; Start 03/20/18 at 15:15 Bupivacaine HCl (Sensorcaine-Mpf 0.25%) 10 ml STK-MED ONCE .ROUTE ; Start 03/16 at 12:00; Stop 03/21/18 at 10:28; Status DC Methylprednisolone Acetate (DEPO-Medrol 40MG VIAL) 40 mg STK-MED ONCE .ROUTE ; Start 03/16/18 at 12:00; Stop 03/21/18 at 10:28; Status DC Active Scripts Active Reported Potassium Chloride 20 Meq Tablet.er 20 Meq PO DAILY Magnesium (Magnesium Oxide) 400 Mg Capsule 1 Cap PO DAILY Amitriptyline Hcl 75 Mg Tablet 1 Tab PO QHS Levemir (Insulin Detemir) 100 Unit/1 Ml Vial 30 Unit SQ HS Aspir-Low (Aspirin) 81 Mg Tablet.dr 1 Tab PO DAILY Carvedilol 25 Mg Tablet 1 Tab PO BID Humalog (Insulin Lispro) 100 Unit/1 Ml Insuln.pen 10 Unit SQ TIDWMEALS Allopurinol 300 Mg Tablet 1 Tab PO DAILY Furosemide 40 Mg Tablet 1 Tab PO DAILY Fluoxetine Hcl 20 Mg Tablet 1 Tab PO DAILY Amlodipine Besylate 10 Mg Tablet 10 Mg PO DAILY Bactrim Ds Tablet (Sulfamethoxazole/Trimethoprim) 1 Each Tablet 1 Tab PO DAILY Vitals/I & O Vital Sign - Last 24 Hours 10/3003/20/18 03/20/18 03/20/18 15:00 16:22 17:33 19:00 Temp 97.9 97.9 97.9 97.9 Pulse 62 62 55 Resp 18 20 18 B/P (MAP) 140/80 (100) 140/80 150/80 (103) Pulse Ox 98 98 100 O2 Delivery Nasal Cannula Nasal Cannula Nasal Cannula O2 Flow Rate 2.0 03/20/18 03/20/18 03/21/18 03/21/18 19:38 23:00 00:07 03:00 Temp 97.9 97.9 97.9 97.9 Pulse 58 70 Resp 18 18 18 B/P (MAP) 165/77 (106) 172/75 (107) Pulse Ox 99 99 100 O2 Delivery Nasal Cannula Nasal Cannula Nasal Cannula Nasal Cannula O2 Flow Rate 2.0 2.0 03/21/18 03/21/18 03/21/18 03/21/18 06:17 07:00 07:17 08:00 Temp 98.0 98.0 Pulse 59 Resp 18 18 20 B/P (MAP) 141/75 (97) Pulse Ox 100 100 100 O2 Delivery Nasal Cannula Nasal Cannula Nasal Cannula Nasal Cannula O2 Flow Rate 2.0 2.0 2.0 2.0 03/21/18 03/21/18 03/21/18 09:12 09:17 11:45 Temp 97.9 97.9 Pulse 59 59 56 Resp 18 B/P (MAP) 141/75 141/75 107/84 (92) Pulse Ox 100 O2 Delivery Room Air Intake and Output 03/20/18 03/20/18 03/21/18 15:00 23:00 07:00 Intake Total 180 ml 1000 ml 1300 ml Balance 180 ml 1000 ml 1300 ml DHIRAJ MCCARTHY MD Mar 21, 2018 13:48
[2018-03-21] MEDS: PATCH REMOVAL. MC SCH (21:00)
[2018-03-21] MEDS: INSULIN GLARGINE 300 UNITS/3 ML INSULN.PEN. SQ SCH (21:50)
[2018-03-22] MEDS: HYDROcodone/APAP 5/325MG 1 TAB TABLET PO PRN (01:47)
[2018-03-22] MEDS: diphenhydrAMINE HCL 25 MG CAPSULE PO PRN ×2 (02:09→08:12)
[2018-03-22 03:00] VITALS: BP 140/70
[2018-03-22] MEDS: MAGNESIUM OXIDE 400 MG TABLET PO SCH (07:57)
[2018-03-22] MEDS: METOCLOPRAMIDE 5 MG TABLET. PO SCH ×3 (07:58→17:37)
[2018-03-22] MEDS: LACTOBACILLUS RHAMNOSUS GG 1 CAPSULE. PO SCH (07:59)
[2018-03-22] MEDS: amLODIPine BESYLATE 10 MG TABLET PO SCH (07:59)
[2018-03-22 08:00] VITALS: BP 168/86
[2018-03-22] MEDS: INSULIN LISPRO 300 UNITS/3 ML INSULN.PEN. SQ SCH ×6 (08:00→17:00)
[2018-03-22] MEDS: FUROSEMIDE 40 MG TABLET. PO SCH (08:00)
[2018-03-22] MEDS: POTASSIUM CHLORIDE 20 MEQ TABLET.ER. PO SCH (08:00)
[2018-03-22] MEDS: CARVEDILOL 12.5 MG TABLET. PO SCH ×2 (08:01→17:38)
[2018-03-22] MEDS: SENNOSIDES/DOCUSATE 8.6/50MG TABLET. PO SCH (08:01)
[2018-03-22] MEDS: PANTOPRAZOLE 40 MG TABLET.DR. PO SCH (08:01)
[2018-03-22] MEDS: IRON POLYSACCHARIDE COMPLEX 150 MG CAPSULE PO SCH (08:02)
[2018-03-22] MEDS: FLUoxetine HCL 20 MG CAPSULE PO SCH (08:02)
[2018-03-22] MEDS: DOCUSATE SODIUM 100 MG CAPSULE. PO SCH (08:02)
[2018-03-22] MEDS: SMZ/TMP 800/160MG TABLET. PO SCH (08:02)
[2018-03-22] MEDS: DICLOFENAC SODIUM 1% TOPICAL GEL 100GM TUBE. TP SCH (08:03)
--- NOTE | 2018-03-22 08:10 | PDOC ---
PROGRESS NOTES Chief Complaint Chief Complaint EPIGASTRIC PAIN WITH DARK STOOLS - NO MORE RECURRENCE Acute on chronic back pain, s/p injections by physiatry diarrhea with hypokalemia RESOLVED ACUTE ON CHRONIC NAUSEA r/o GASTROPARESIS Diabetes type 2 on insulin-uncontrolled -unknown hgba1c Generalized weakness, - has and 24/hr care MOrbid Obesity BMI 63 - bariatric bed chronic pain with fibromyalgia History of Present Illness History of Present Illness Was unable to produce PICC with physical therapy because of postop pain She claims back pain much better since injections by physiatry Blood sugars are much better with adjustments here throughout her stay has fibromyalgia chronic back pain. still c/o diffuse abd pain, 8/10, eats ok today although told me yesterday has dysphagia GES neg abd pain better with mylanta. no bm for 2-3ds after diarrhea resolved, then has one BM yesterday with stool softner EPIGASTRIC PAIN WITH DARK STOOLS - NO MORE RECURRENCE Acute on chronic back pain, s/p injections by physiatry diarrhea with hypokalemia RESOLVED ACUTE ON CHRONIC NAUSEA r/o GASTROPARESIS Diabetes type 2 on insulin-uncontrolled -unknown hgba1c Generalized weakness, - has HH and 24/hr care MOrbid Obesity BMI 63 - bariatric bed chronic pain with fibromyalgia plan: fu with dr. Lee, gi GES neg, consider dc reglan if ok with gi on lantus, novolog, ssi ptot on ppi add stool softner. pt c/o dark stool before, neg FOBT. i talked to gi, not much can offer in the hosp, plan to dc , but pt said pain 8/ 10 that improved to 2/10 after BM Vitals Vitals Vital Signs Date Time Temp Pulse Resp B/P (MAP) Pulse Ox O2 Delivery O2 Flow Rate FiO2 03/22/18 08:01 83 140/70 03/22/18 03:32 96 Nasal Cannula 2.0 03/22/18 03:00 98.3 17 98.3 Physical Exam General: Alert, Oriented X3, Cooperative, No acute distress, mild distress Heart: Regular rate, Normal S1, Normal S2 Lungs: Clear Abdomen: Normal bowel sounds, Soft Extremities: No clubbing, No cyanosis Skin: No significant lesion Labs LABS Laboratory Tests Test 03/21/18 11:03 03/21/18 16:35 03/21/18 20:38 03/22/18 07:27 Glucose (Fingerstick) 162 mg/dL (70-99) 99 mg/dL (70-99) 170 mg/dL (70-99) 139 mg/dL (70-99) Assessment and Plan Assessmemt and Plan Problems Medical Problems: (1) Abdominal pain Status: Acute (2) Anemia Status: Acute (3) Hypokalemia Status: Acute (4) Morbid obesity Status: Acute Comment Review of Relevant I have reviewed the following items miranda (where applicable) has been applied. Labs Laboratory Tests Test 03/20/18 17:25 03/20/18 20:56 03/21/18 05:30 03/21/18 07:19 Glucose (Fingerstick) 112 mg/dL (70-99) 187 mg/dL (70-99) 153 mg/dL (70-99) White Blood Count 5.1 x10^3/uL (4.0-11.0) Red Blood Count 3.98 x10^6/uL (3.50-5.40) Hemoglobin 10.6 g/dL (12.0-15.5) Hematocrit 32.8 % (36.0-47.0) Mean Corpuscular Volume 82 fL (79-100) Mean Corpuscular Hemoglobin 27 pg (25-35) Mean Corpuscular Hemoglobin Concent 32 g/dL (31-37) Red Cell Distribution Width 17.0 % (11.5-14.5) Platelet Count 237 x10^3/uL (140-400) Neutrophils (%) (Auto) 73 % (31-73) Lymphocytes (%) (Auto) 17 % (24-48) Monocytes (%) (Auto) 9 % (0-9) Eosinophils (%) (Auto) 1 % (0-3) Basophils (%) (Auto) 1 % (0-3) Neutrophils # (Auto) 3.7 x10^3uL (1.8-7.7) Lymphocytes # (Auto) 0.9 x10^3/uL (1.0-4.8) Monocytes # (Auto) 0.4 x10^3/uL (0.0-1.1) Eosinophils # (Auto) 0.0 x10^3/uL (0.0-0.7) Basophils # (Auto) 0.0 x10^3/uL (0.0-0.2) Sodium Level 136 mmol/L (136-145) Potassium Level 3.9 mmol/L (3.5-5.1) Chloride Level 95 mmol/L (98-107) Carbon Dioxide Level 36 mmol/L (21-32) Anion Gap 5 (6-14) Blood Urea Nitrogen 12 mg/dL (7-20) Creatinine 1.2 mg/dL (0.6-1.0) Estimated GFR (Cockcroft-Gault) 53.4 Glucose Level 150 mg/dL (70-99) Calcium Level 9.1 mg/dL (8.5-10.1) Test 03/21/18 11:03 03/21/18 16:35 03/21/18 20:38 03/22/18 07:27 Glucose (Fingerstick) 162 mg/dL (70-99) 99 mg/dL (70-99) 170 mg/dL (70-99) 139 mg/dL (70-99) Laboratory Tests Test 03/21/18 11:03 03/21/18 16:35 03/21/18 20:38 03/22/18 07:27 Glucose (Fingerstick) 162 mg/dL (70-99) 99 mg/dL (70-99) 170 mg/dL (70-99) 139 mg/dL (70-99) Microbiology 03/15/18 Fecal Leukocyte Stain - Final, Complete 03/13/18 Urine Culture - Final, Complete 03/13/18 Urine Culture Result 1 (HOWIE) - Final, Complete 03/13/18 Antimicrobic Susceptibility - Final, Complete Medications Current Medications Magnesium Sulfate 50 ml @ 25 mls/hr 1X ONCE IV Last administered on at 22:40; Start 03/13/18 at 12:00; Stop 03/13/18 at 13:59; Status DC Potassium Chloride (Klor-Con) 40 meq 1X ONCE PO Last administered on at 14:17; Start 03/13/18 at 12:00; Stop 03/13/18 at 12:03; Status DC Potassium Chloride/Water 50 ml @ 25 mls/hr Q2H IV Last administered on at 22:03; Start 03/13/18 at 14:00; Stop 03/13/18 at 17:59; Status DC Lidocaine/Sodium Bicarbonate (Buffered Lidocaine 1%) 3 ml STK-MED ONCE .ROUTE ; Start 03/13/18 at 15:54; Stop 03/13/18 at 15:55; Status DC Lidocaine/Sodium Bicarbonate (Buffered Lidocaine 1%) 3 ml 1X ONCE INJ Last administered on 03/13/18at 16:15; Start 03/13/18 at 16:15; Stop 03/13/18 at 16 :17; Status DC Allopurinol (Zyloprim) 300 mg DAILY PO ; Start 03/14/18 at 09:00; Stop at 09:00; Status DC Amlodipine Besylate (Norvasc) 10 mg DAILY PO Last administered on 03/22/18at 07: 59; Start 03/14/18 at 09:00 Aspirin (Ecotrin) 81 mg DAILY PO Last administered on 03/17/18at 08:49; Start 03/14/18 at 09:00; Stop 03/17/18 at 09:54; Status DC Furosemide (Lasix) 40 mg DAILY PO Last administered on 03/22/18at 08:00; Start 03/14/18 at 09:00 Insulin Human Lispro (HumaLOG) 10 units TIDWMEALS SQ Last administered on 03/21at 12:20; Start 03/14/18 at 08:00 Trimethoprim/ Sulfamethoxazole (Bactrim Ds) 1 tab DAILY PO Last administered on 03/22/18at 08:02; Start 03/14/18 at 09:00; Stop 03/25/18 at 09:01 Amitriptyline HCl (Elavil) 75 mg QHS PO ; Start 03/13/18 at 21:00; Stop at 21:00; Status DC Carvedilol (Coreg) 25 mg BIDWMEALS PO Last administered on 03/22/18at 08:01; Start 03/13/18 at 19:30 Fluoxetine HCl (PROzac) 20 mg DAILY PO Last administered on 03/22/18at 08:02; Start 03/14/18 at 09:00 Insulin Glargine (Lantus) 30 units QHS SQ Last administered on 03/21/18at 21:50 ; Start 03/13/18 at 21:00 Magnesium Oxide (Magnesium Oxide) 400 mg DAILY PO Last administered on at 07:57; Start 03/14/18 at 09:00 Potassium Chloride (Klor-Con) 20 meq DAILYWBKFT PO Last administered on at 08:00; Start 03/14/18 at 08:00 Acetaminophen/ Hydrocodone Bitart (Lortab 5/325) 1 tab PRN Q4HRS PRN PO MODERATE PAIN Last administered on 03/22/18at 01:47; Start 03/13/18 at 19:15 Pantoprazole Sodium (PROTONIX VIAL for IV PUSH) 40 mg DAILYAC IVP Last administered on 03/14/18at 08:34; Start 03/14/18 at 07:30; Stop 03/14/18 at 11 :49; Status DC Lactobacillus Rhamnosus (Culturelle) 1 cap BID PO Last administered on at 07:59; Start 03/14/18 at 09:00 Pantoprazole Sodium (Protonix) 40 mg DAILYAC PO Last administered on 03/22/18at 08:01; Start 03/15/18 at 07:30 Diclofenac Sodium (Voltaren) 1 elroy BID TP Last administered on 03/22/18at 08:03 ; Start 03/14/18 at 16:00 Ondansetron HCl (Zofran) 4 mg PRN Q8HRS PRN IV NAUSEA/VOMITING; Start at 12:45; Stop 03/18/18 at 08:16; Status DC Potassium Chloride (Klor-Con) 40 meq 1X ONCE PO Last administered on at 17:45; Start 03/15/18 at 14:30; Stop 03/15/18 at 14:31; Status DC Methylprednisolone Acetate (DEPO-Medrol 40MG VIAL) 40 mg 1X ONCE INJ ; Start 03/16/18 at 12:00; Stop 03/16/18 at 12:01; Status DC Methylprednisolone Acetate (DEPO-Medrol 40MG VIAL) 40 mg 1X ONCE INJ ; Start 03/16/18 at 12:00; Stop 03/16/18 at 12:01; Status DC Bupivacaine HCl (Sensorcaine-Mpf 0.25%) 10 ml 1X ONCE IJ ; Start 03/16/18 at 12:00; Stop 03/16/18 at 12:01; Status DC Polysaccharide Iron Complex (Niferex 150) 150 mg BID PO Last administered on at 08:02; Start 03/16/18 at 12:00 Ceftriaxone Sodium 1 gm/ Dextrose 50 ml @ 100 mls/hr Q24H IV ; Start 03/16/18 at 12:45; Stop 03/16/18 at 12:50; Status DC Ceftriaxone Sodium (Rocephin) 1 gm Q24H IVP Last administered on 03/16/18at 16: 51; Start 03/16/18 at 13:00; Stop 03/17/18 at 10:44; Status DC Insulin Human Lispro (HumaLOG) 0-9 UNITS TIDWMEALS SQ Last administered on at 12:20; Start 03/17/18 at 08:30 Dextrose (Dextrose 50%-Water Syringe) 12.5 gm PRN Q15MIN PRN IV SEE COMMENTS; Start 03/17/18 at 08:15 Acetaminophen/ Hydrocodone Bitart (Lortab 10/325) 1 tab PRN Q6HRS PRN PO SEVERE PAIN Last administered on 03/21/18at 21:39; Start 03/17/18 at 10:00 Naproxen (Naprosyn) 250 mg BID PO ; Start 03/17/18 at 10:00; Stop 03/17/18 at 10:00; Status DC Tramadol HCl (Ultram) 50 mg PRN Q6HRS PRN PO MILD PAIN Last administered on at 21:01; Start 03/17/18 at 10:00 Lidocaine (Lidoderm) 1 patch DAILY TD Last administered on 03/21/18at 09:18; Start 03/18/18 at 09:00 Miscellaneous (Lidoderm Patch Removal) 1 ea QHS MC Last administered on at 21:00; Start 03/18/18 at 21:00 Ondansetron HCl (Zofran) 4 mg PRN Q6HRS PRN IV NAUSEA/VOMITING Last administered on 03/18/18at 09:19; Start 03/18/18 at 08:30; Stop 03/19/18 at 15 :09; Status DC Metoclopramide HCl (Reglan) 5 mg TIDAC PO Last administered on 03/22/18at 07:58 ; Start 03/18/18 at 11:30 Acetaminophen (Tylenol) 650 mg PRN Q6HRS PRN PO FEVER Last administered on at 11:36; Start 03/19/18 at 15:15 Ondansetron HCl (Zofran) 4 mg PRN Q6HRS PRN IV NAUSEA/VOMITING; Start at 15:15 Morphine Sulfate (Morphine Sulfate) 2 mg PRN Q2HR PRN IV MODERATE TO SEVERE PAIN; Start 03/19/18 at 15:15 Tramadol HCl (Ultram) 50 mg PRN Q6HRS PRN PO MILD TO MODERATE PAIN; Start at 15:15; Stop 03/19/18 at 19:19; Status DC Docusate Sodium (Colace) 100 mg PRN DAILY PRN PO CONSTIPATION 1ST CHOICE; Start 03/19/18 at 15:15 Al Hydroxide/Mg Hydroxide (Mylanta Plus Xs) 30 ml PRN Q2HR PRN PO HEARTBURN / GAS Last administered on 03/21/18at 09:10; Start 03/20/18 at 10:45 Senna/Docusate Sodium (Senna Plus) 1 tab BID PO Last administered on 03/22/18at 08:01; Start 03/20/18 at 11:30 Docusate Sodium (Colace) 100 mg BID PO Last administered on 03/22/18at 08:02; Start 03/20/18 at 11:30 Magnesium Hydroxide (Milk Of Magnesia) 2,400 mg PRN Q12HR PRN PO CONSTIPATION 2ND CHOICE; Start 03/20/18 at 10:45 Diphenhydramine HCl (Benadryl) 25 mg PRN Q6HRS PRN PO ITCHING Last administered on 03/22/18at 02:09; Start 03/20/18 at 15:15 Bupivacaine HCl (Sensorcaine-Mpf 0.25%) 10 ml STK-MED ONCE .ROUTE ; Start 03/16 at 12:00; Stop 03/21/18 at 10:28; Status DC Methylprednisolone Acetate (DEPO-Medrol 40MG VIAL) 40 mg STK-MED ONCE .ROUTE ; Start 03/16/18 at 12:00; Stop 03/21/18 at 10:28; Status DC Active Scripts Active Reported Potassium Chloride 20 Meq Tablet.er 20 Meq PO DAILY Magnesium (Magnesium Oxide) 400 Mg Capsule 1 Cap PO DAILY Amitriptyline Hcl 75 Mg Tablet 1 Tab PO QHS Levemir (Insulin Detemir) 100 Unit/1 Ml Vial 30 Unit SQ HS Aspir-Low (Aspirin) 81 Mg Tablet.dr 1 Tab PO DAILY Carvedilol 25 Mg Tablet 1 Tab PO BID Humalog (Insulin Lispro) 100 Unit/1 Ml Insuln.pen 10 Unit SQ TIDWMEALS Allopurinol 300 Mg Tablet 1 Tab PO DAILY Furosemide 40 Mg Tablet 1 Tab PO DAILY Fluoxetine Hcl 20 Mg Tablet 1 Tab PO DAILY Amlodipine Besylate 10 Mg Tablet 10 Mg PO DAILY Bactrim Ds Tablet (Sulfamethoxazole/Trimethoprim) 1 Each Tablet 1 Tab PO DAILY Vitals/I & O Vital Sign - Last 24 Hours 03/21/18 03/21/18 03/21/18 03/21/18 09:12 09:17 11:45 15:00 Temp 97.9 98.5 97.9 98.5 Pulse 59 59 56 61 Resp 18 18 B/P (MAP) 141/75 141/75 107/84 (92) 149/71 (97) Pulse Ox 100 99 O2 Delivery Room Air Nasal Cannula O2 Flow Rate 2.0 03/21/18 03/21/18 03/21/18 03/21/18 15:11 16:04 16:11 17:54 Temp 98.5 98.5 Pulse 61 61 Resp 20 18 20 B/P (MAP) 149/71 (97) 149/71 Pulse Ox 100 99 O2 Delivery Nasal Cannula Nasal Cannula O2 Flow Rate 2.0 2.0 03/21/18 03/21/18 03/21/18 03/21/18 19:00 20:00 21:39 23:00 Temp 98.1 98.1 98.1 98.1 Pulse 99 74 Resp 18 19 B/P (MAP) 157/75 (102) 139/76 (97) Pulse Ox 97 99 96 O2 Delivery Nasal Cannula Nasal Cannula Nasal Cannula Room Air O2 Flow Rate 2.0 2.0 2.0 03/22/18 03/22/18 03/22/18 03/22/18 00:16 01:47 03:00 03:32 Temp 98.3 98.3 Pulse 83 Resp 17 B/P (MAP) 140/70 (93) Pulse Ox 96 96 95 96 O2 Delivery Nasal Cannula Nasal Cannula Room Air Nasal Cannula O2 Flow Rate 2.0 2.0 2.0 03/22/18 03/22/18 07:59 08:01 Pulse 83 83 B/P (MAP) 140/70 140/70 OMERO MOLINA MD Mar 22, 2018 08:10
[2018-03-22] MEDS: HYDROcodone/APAP 10/325 1 TAB TABLET PO PRN ×2 (08:12→17:37)
[2018-03-22] MEDS: LIDOCAINE (700MG/PATCH) PATCH. TD SCH (08:18)
--- NOTE | 2018-03-22 09:16 | PDOC ---
Subjective: Subjective: Feels "so-so" but admits some bites of toast and eggs "settled well" so she's going to eat some more. Would like to go home to [place]." Objective: Vital Signs: Vital Signs Date Time Temp Pulse Resp B/P (MAP) Pulse Ox O2 Delivery O2 Flow Rate FiO2 03/22/18 08:12 96 Nasal Cannula 2.0 03/22/18 08:01 83 140/70 03/22/18 08:00 99.4 20 99.4 Labs: Laboratory Tests Test 03/21/18 11:03 03/21/18 16:35 03/21/18 20:38 03/22/18 07:27 Glucose (Fingerstick) 162 mg/dL 99 mg/dL 170 mg/dL 139 mg/dL PE: GEN: NAD LUNGS: room air HEART: RRR ABD: obese, non-tender NEURO/PSYCH: A & O 3, more perky A/P: Dyspepsia - better H/o sickle/thalassemia Alternating bowel pattern -- Admits eating better. DC per primary, continue PPI. TYRA EDGAR Mar 22, 2018 09:15
--- NOTE | 2018-03-22 10:45 | PDOC ---
PROGRESS NOTES Subjective Subjective She admits continued GI discomfort. Objective Objective Vital Signs Date Time Temp Pulse Resp B/P (MAP) Pulse Ox O2 Delivery O2 Flow Rate FiO2 03/22/18 09:18 96 Nasal Cannula 2.0 03/22/18 08:01 83 140/70 03/22/18 08:00 99.4 20 99.4 Intake and Output 03/22/18 07:00 # Voids 9 Physical Exam Physical Exam She is sitting up in bed with head end of bed propped up and she is eating breakfast.She if not getting up much. Assessment Assessment Problems Medical Problems: (1) Abdominal pain Status: Acute (2) Anemia Status: Acute (3) Hypokalemia Status: Acute (4) Morbid obesity Status: Acute Plan Plan of Care To encourage her to get up as she can tolerate and home with home health follow up when medically stable. Comment Review of Relevant I have reviewed the following items miranda (where applicable) has been applied. Labs Laboratory Tests Test 03/20/18 17:25 03/20/18 20:56 03/21/18 05:30 03/21/18 07:19 Glucose (Fingerstick) 112 mg/dL (70-99) 187 mg/dL (70-99) 153 mg/dL (70-99) White Blood Count 5.1 x10^3/uL (4.0-11.0) Red Blood Count 3.98 x10^6/uL (3.50-5.40) Hemoglobin 10.6 g/dL (12.0-15.5) Hematocrit 32.8 % (36.0-47.0) Mean Corpuscular Volume 82 fL (79-100) Mean Corpuscular Hemoglobin 27 pg (25-35) Mean Corpuscular Hemoglobin Concent 32 g/dL (31-37) Red Cell Distribution Width 17.0 % (11.5-14.5) Platelet Count 237 x10^3/uL (140-400) Neutrophils (%) (Auto) 73 % (31-73) Lymphocytes (%) (Auto) 17 % (24-48) Monocytes (%) (Auto) 9 % (0-9) Eosinophils (%) (Auto) 1 % (0-3) Basophils (%) (Auto) 1 % (0-3) Neutrophils # (Auto) 3.7 x10^3uL (1.8-7.7) Lymphocytes # (Auto) 0.9 x10^3/uL (1.0-4.8) Monocytes # (Auto) 0.4 x10^3/uL (0.0-1.1) Eosinophils # (Auto) 0.0 x10^3/uL (0.0-0.7) Basophils # (Auto) 0.0 x10^3/uL (0.0-0.2) Sodium Level 136 mmol/L (136-145) Potassium Level 3.9 mmol/L (3.5-5.1) Chloride Level 95 mmol/L (98-107) Carbon Dioxide Level 36 mmol/L (21-32) Anion Gap 5 (6-14) Blood Urea Nitrogen 12 mg/dL (7-20) Creatinine 1.2 mg/dL (0.6-1.0) Estimated GFR (Cockcroft-Gault) 53.4 Glucose Level 150 mg/dL (70-99) Calcium Level 9.1 mg/dL (8.5-10.1) Test 03/21/18 11:03 03/21/18 16:35 03/21/18 20:38 03/22/18 07:27 Glucose (Fingerstick) 162 mg/dL (70-99) 99 mg/dL (70-99) 170 mg/dL (70-99) 139 mg/dL (70-99) Laboratory Tests Test 03/21/18 11:03 03/21/18 16:35 03/21/18 20:38 03/22/18 07:27 Glucose (Fingerstick) 162 mg/dL (70-99) 99 mg/dL (70-99) 170 mg/dL (70-99) 139 mg/dL (70-99) Microbiology 03/15/18 Fecal Leukocyte Stain - Final, Complete 03/13/18 Urine Culture - Final, Complete 03/13/18 Urine Culture Result 1 (HOWIE) - Final, Complete 03/13/18 Antimicrobic Susceptibility - Final, Complete Medications Current Medications Magnesium Sulfate 50 ml @ 25 mls/hr 1X ONCE IV Last administered on at 22:40; Start 03/13/18 at 12:00; Stop 03/13/18 at 13:59; Status DC Potassium Chloride (Klor-Con) 40 meq 1X ONCE PO Last administered on at 14:17; Start 03/13/18 at 12:00; Stop 03/13/18 at 12:03; Status DC Potassium Chloride/Water 50 ml @ 25 mls/hr Q2H IV Last administered on at 22:03; Start 03/13/18 at 14:00; Stop 03/13/18 at 17:59; Status DC Lidocaine/Sodium Bicarbonate (Buffered Lidocaine 1%) 3 ml STK-MED ONCE .ROUTE ; Start 03/13/18 at 15:54; Stop 03/13/18 at 15:55; Status DC Lidocaine/Sodium Bicarbonate (Buffered Lidocaine 1%) 3 ml 1X ONCE INJ Last administered on 03/13/18at 16:15; Start 03/13/18 at 16:15; Stop 03/13/18 at 16 :17; Status DC Allopurinol (Zyloprim) 300 mg DAILY PO ; Start 03/14/18 at 09:00; Stop at 09:00; Status DC Amlodipine Besylate (Norvasc) 10 mg DAILY PO Last administered on 03/22/18at 07: 59; Start 03/14/18 at 09:00 Aspirin (Ecotrin) 81 mg DAILY PO Last administered on 03/17/18at 08:49; Start 03/14/18 at 09:00; Stop 03/17/18 at 09:54; Status DC Furosemide (Lasix) 40 mg DAILY PO Last administered on 03/22/18at 08:00; Start 03/14/18 at 09:00 Insulin Human Lispro (HumaLOG) 10 units TIDWMEALS SQ Last administered on 03/21at 12:20; Start 03/14/18 at 08:00 Trimethoprim/ Sulfamethoxazole (Bactrim Ds) 1 tab DAILY PO Last administered on 03/22/18at 08:02; Start 03/14/18 at 09:00; Stop 03/25/18 at 09:01 Amitriptyline HCl (Elavil) 75 mg QHS PO ; Start 03/13/18 at 21:00; Stop at 21:00; Status DC Carvedilol (Coreg) 25 mg BIDWMEALS PO Last administered on 03/22/18at 08:01; Start 03/13/18 at 19:30 Fluoxetine HCl (PROzac) 20 mg DAILY PO Last administered on 03/22/18at 08:02; Start 03/14/18 at 09:00 Insulin Glargine (Lantus) 30 units QHS SQ Last administered on 03/21/18at 21:50 ; Start 03/13/18 at 21:00 Magnesium Oxide (Magnesium Oxide) 400 mg DAILY PO Last administered on at 07:57; Start 03/14/18 at 09:00 Potassium Chloride (Klor-Con) 20 meq DAILYWBKFT PO Last administered on at 09:15; Start 03/14/18 at 08:00 Acetaminophen/ Hydrocodone Bitart (Lortab 5/325) 1 tab PRN Q4HRS PRN PO MODERATE PAIN Last administered on 03/22/18at 01:47; Start 03/13/18 at 19:15 Pantoprazole Sodium (PROTONIX VIAL for IV PUSH) 40 mg DAILYAC IVP Last administered on 03/14/18at 08:34; Start 03/14/18 at 07:30; Stop 03/14/18 at 11 :49; Status DC Lactobacillus Rhamnosus (Culturelle) 1 cap BID PO Last administered on at 07:59; Start 03/14/18 at 09:00 Pantoprazole Sodium (Protonix) 40 mg DAILYAC PO Last administered on 03/22/18at 08:01; Start 03/15/18 at 07:30 Diclofenac Sodium (Voltaren) 1 elroy BID TP Last administered on 03/22/18at 08:03 ; Start 03/14/18 at 16:00 Ondansetron HCl (Zofran) 4 mg PRN Q8HRS PRN IV NAUSEA/VOMITING; Start at 12:45; Stop 03/18/18 at 08:16; Status DC Potassium Chloride (Klor-Con) 40 meq 1X ONCE PO Last administered on at 17:45; Start 03/15/18 at 14:30; Stop 03/15/18 at 14:31; Status DC Methylprednisolone Acetate (DEPO-Medrol 40MG VIAL) 40 mg 1X ONCE INJ ; Start 03/16/18 at 12:00; Stop 03/16/18 at 12:01; Status DC Methylprednisolone Acetate (DEPO-Medrol 40MG VIAL) 40 mg 1X ONCE INJ ; Start 03/16/18 at 12:00; Stop 03/16/18 at 12:01; Status DC Bupivacaine HCl (Sensorcaine-Mpf 0.25%) 10 ml 1X ONCE IJ ; Start 03/16/18 at 12:00; Stop 03/16/18 at 12:01; Status DC Polysaccharide Iron Complex (Niferex 150) 150 mg BID PO Last administered on at 08:02; Start 03/16/18 at 12:00 Ceftriaxone Sodium 1 gm/ Dextrose 50 ml @ 100 mls/hr Q24H IV ; Start 03/16/18 at 12:45; Stop 03/16/18 at 12:50; Status DC Ceftriaxone Sodium (Rocephin) 1 gm Q24H IVP Last administered on 03/16/18at 16: 51; Start 03/16/18 at 13:00; Stop 03/17/18 at 10:44; Status DC Insulin Human Lispro (HumaLOG) 0-9 UNITS TIDWMEALS SQ Last administered on at 12:20; Start 03/17/18 at 08:30 Dextrose (Dextrose 50%-Water Syringe) 12.5 gm PRN Q15MIN PRN IV SEE COMMENTS; Start 03/17/18 at 08:15 Acetaminophen/ Hydrocodone Bitart (Lortab 10/325) 1 tab PRN Q6HRS PRN PO SEVERE PAIN Last administered on 03/22/18at 08:12; Start 03/17/18 at 10:00 Naproxen (Naprosyn) 250 mg BID PO ; Start 03/17/18 at 10:00; Stop 03/17/18 at 10:00; Status DC Tramadol HCl (Ultram) 50 mg PRN Q6HRS PRN PO MILD PAIN Last administered on at 21:01; Start 03/17/18 at 10:00 Lidocaine (Lidoderm) 1 patch DAILY TD Last administered on 03/22/18at 08:18; Start 03/18/18 at 09:00 Miscellaneous (Lidoderm Patch Removal) 1 ea QHS MC Last administered on at 21:00; Start 03/18/18 at 21:00 Ondansetron HCl (Zofran) 4 mg PRN Q6HRS PRN IV NAUSEA/VOMITING Last administered on 03/18/18at 09:19; Start 03/18/18 at 08:30; Stop 03/19/18 at 15 :09; Status DC Metoclopramide HCl (Reglan) 5 mg TIDAC PO Last administered on 03/22/18at 07:58 ; Start 03/18/18 at 11:30 Acetaminophen (Tylenol) 650 mg PRN Q6HRS PRN PO FEVER Last administered on at 11:36; Start 03/19/18 at 15:15 Ondansetron HCl (Zofran) 4 mg PRN Q6HRS PRN IV NAUSEA/VOMITING; Start at 15:15 Morphine Sulfate (Morphine Sulfate) 2 mg PRN Q2HR PRN IV MODERATE TO SEVERE PAIN; Start 03/19/18 at 15:15 Tramadol HCl (Ultram) 50 mg PRN Q6HRS PRN PO MILD TO MODERATE PAIN; Start at 15:15; Stop 03/19/18 at 19:19; Status DC Docusate Sodium (Colace) 100 mg PRN DAILY PRN PO CONSTIPATION 1ST CHOICE; Start 03/19/18 at 15:15 Al Hydroxide/Mg Hydroxide (Mylanta Plus Xs) 30 ml PRN Q2HR PRN PO HEARTBURN / GAS Last administered on 03/21/18at 09:10; Start 03/20/18 at 10:45 Senna/Docusate Sodium (Senna Plus) 1 tab BID PO Last administered on 03/22/18at 08:01; Start 03/20/18 at 11:30 Docusate Sodium (Colace) 100 mg BID PO Last administered on 03/22/18at 08:02; Start 03/20/18 at 11:30 Magnesium Hydroxide (Milk Of Magnesia) 2,400 mg PRN Q12HR PRN PO CONSTIPATION 2ND CHOICE; Start 03/20/18 at 10:45 Diphenhydramine HCl (Benadryl) 25 mg PRN Q6HRS PRN PO ITCHING Last administered on 03/22/18at 08:12; Start 03/20/18 at 15:15 Bupivacaine HCl (Sensorcaine-Mpf 0.25%) 10 ml STK-MED ONCE .ROUTE ; Start 03/16 at 12:00; Stop 03/21/18 at 10:28; Status DC Methylprednisolone Acetate (DEPO-Medrol 40MG VIAL) 40 mg STK-MED ONCE .ROUTE ; Start 03/16/18 at 12:00; Stop 03/21/18 at 10:28; Status DC Active Scripts Active Reported Potassium Chloride 20 Meq Tablet.er 20 Meq PO DAILY Magnesium (Magnesium Oxide) 400 Mg Capsule 1 Cap PO DAILY Amitriptyline Hcl 75 Mg Tablet 1 Tab PO QHS Levemir (Insulin Detemir) 100 Unit/1 Ml Vial 30 Unit SQ HS Aspir-Low (Aspirin) 81 Mg Tablet.dr 1 Tab PO DAILY Carvedilol 25 Mg Tablet 1 Tab PO BID Humalog (Insulin Lispro) 100 Unit/1 Ml Insuln.pen 10 Unit SQ TIDWMEALS Allopurinol 300 Mg Tablet 1 Tab PO DAILY Furosemide 40 Mg Tablet 1 Tab PO DAILY Fluoxetine Hcl 20 Mg Tablet 1 Tab PO DAILY Amlodipine Besylate 10 Mg Tablet 10 Mg PO DAILY Bactrim Ds Tablet (Sulfamethoxazole/Trimethoprim) 1 Each Tablet 1 Tab PO DAILY Vitals/I & O Vital Sign - Last 24 Hours 03/21/18 03/21/18 03/21/18 03/21/18 11:45 15:00 15:11 16:04 Temp 97.9 98.5 98.5 97.9 98.5 98.5 Pulse 56 61 61 Resp 18 18 20 18 B/P (MAP) 107/84 (92) 149/71 (97) 149/71 (97) Pulse Ox 100 99 100 99 O2 Delivery Room Air Nasal Cannula Nasal Cannula Nasal Cannula O2 Flow Rate 2.0 2.0 2.0 03/21/18 03/21/18 03/21/18 03/21/18 16:11 17:54 19:00 20:00 Temp 98.1 98.1 Pulse 61 99 Resp 20 18 B/P (MAP) 149/71 157/75 (102) Pulse Ox 97 O2 Delivery Nasal Cannula Nasal Cannula O2 Flow Rate 2.0 2.0 03/21/18 03/21/18 03/22/18 03/22/18 21:39 23:00 01:47 03:00 Temp 98.1 98.3 98.1 98.3 Pulse 74 83 Resp 19 17 B/P (MAP) 139/76 (97) 140/70 (93) Pulse Ox 99 96 96 95 O2 Delivery Nasal Cannula Room Air Nasal Cannula Room Air O2 Flow Rate 2.0 2.0 03/22/18 03/22/18 03/22/18 03/22/18 03:32 07:30 07:59 08:00 Temp 99.4 99.4 Pulse 83 60 Resp 20 B/P (MAP) 140/70 168/86 (113) Pulse Ox 96 99 O2 Delivery Nasal Cannula Nasal Cannula Room Air O2 Flow Rate 2.0 2.0 03/22/18 03/22/18 03/22/18 08:01 08:12 09:18 Pulse 83 B/P (MAP) 140/70 Pulse Ox 96 96 O2 Delivery Nasal Cannula Nasal Cannula O2 Flow Rate 2.0 2.0 SANDRA CINTRON MD Mar 22, 2018 10:45
[2018-03-22 11:00] VITALS: BP 115/68
[2018-03-22 15:00] VITALS: BP 140/78
[2018-03-22] MEDS ORDERED: Pantoprazole PO (15:13)
[2018-03-22] MEDS ORDERED: BETH5TAB PO (15:13)
--- NOTE | 2018-03-22 15:17 | DISCH ---
DISCHARGE WITH HOME HEALTH DISCHARGE INFORMATION: Discharge Date: Mar 22, 2018 Final Diagnosis: Problems Medical Problems: (1) Abdominal pain Status: Acute (2) Anemia Status: Acute (3) Hypokalemia Status: Acute (4) Morbid obesity Status: Acute Condition on Discharge: Stable CODE STATUS: Code Status: Full HOME HEALTH: Face to Face: I certify this patient is under my care and that I, or a nurse practitioner or physician's payroll assistant working with me, had a face to face encounter that meets the physician face to face encounter requirements with this patient on 03/22/18. Medical Complications: COPD, DM Physical Therapy For: Evalulation/Treatment Occupational Therapy For: Evaluation/Treatment Home Health Aide For: Self-care Pt Meets Homebound Status: Poor coordination w/ amb., Unsteady balance w/ amb, POST DISCHARGE ORDERS: Activity Instructions for Disc: Resume previous activity Weight Bearing Status after Di: No restrictions DIET AFTER DISCHARGE: Cardiac CHECKS AFTER DISCHARGE: Checks after discharge: Check blood press - daily, Check blood sugar, ac/hs, Check your Temp as needed TREATMENT/EQUIPMENT ORDERS: Discharge Respiratory Equipmen: Oxygen (2L NCO2 continuous, up to 4L on ambulation) CERTIFICATION STATEMENT: Certification Statement: Certification Statement: Based on the above finding, I certify that this patient is confined to the home and needs intermittent prison care, physical therapy and/or speech therapy, or continues to need occupational therapy.~ This patient is under my care, and I have initiated the establishment of the plan of care.~ This patient will be followed by myself or a community physician who will periodically review the plan of care. Home Meds Active Scripts Bethanechol Chloride (BETHANECHOL CHLORIDE) 5 Mg Tablet, 5 MG PO TIDBFRMEAL for gastroparesis for 30 Days, #90 TAB 2 Refills Prov:OMERO MOLINA MD 03/22/18 [Pantoprazole] 40 MG TABLET.DR Tan Conflict Check, 40 MG PO DAILYAC for 30 Days, #30 2 Refills Prov:MOERO MOLINA MD 03/22/18 Reported Medications Potassium Chloride (POTASSIUM CHLORIDE) 20 Meq Tablet.er, 20 MEQ PO DAILY, TAB.SR 03/13/18 Magnesium Oxide (MAGNESIUM) 400 Mg Capsule, 1 CAP PO DAILY, #30 CAP 3 Refills 03/13/18 Amitriptyline Hcl (AMITRIPTYLINE HCL) 75 Mg Tablet, 1 TAB PO QHS, #30 TAB 3 Refills 03/13/18 Insulin Detemir (LEVEMIR) 100 Unit/1 Ml Vial, 30 UNIT SQ HS, VIAL 03/13/18 Aspirin (ASPIR-LOW) 81 Mg Tablet.dr, 1 TAB PO DAILY, #30 TAB 3 Refills 03/13/18 Carvedilol (CARVEDILOL) 25 Mg Tablet, 1 TAB PO BID, #180 TAB 1 Refill 03/13/18 Insulin Lispro (HUMALOG) 100 Unit/1 Ml Insuln.pen, 10 UNIT SQ TIDWMEALS, SYR 03/13/18 Allopurinol (ALLOPURINOL) 300 Mg Tablet, 1 TAB PO DAILY, #30 TAB 5 Refills 03/13/18 Furosemide (FUROSEMIDE) 40 Mg Tablet, 1 TAB PO DAILY, #30 TAB 5 Refills 03/13/18 Fluoxetine Hcl (FLUOXETINE HCL) 20 Mg Tablet, 1 TAB PO DAILY, #90 TAB 3 Refills 03/13/18 Amlodipine Besylate (AMLODIPINE BESYLATE) 10 Mg Tablet, 10 MG PO DAILY, TAB 03/13/18 Discontinued Reported Medications Sulfamethoxazole/Trimethoprim (BACTRIM DS TABLET) 1 Each Tablet, 1 TAB PO DAILY , #14 TAB 03/13/18 OMERO MOLINA MD Mar 22, 2018 15:17
[2018-03-22 17:38] VITALS: BP 140/78
--- NOTE | 2018-03-26 10:47 | PDOC3 ---
Discharge Summary Visit Information Date of Admission: Mar 13, 2018 Date of Discharge: Mar 22, 2018 Admitting Diagnosis: Acute anemia,UTI,Hypokalemia,weakness Final Diagnosis Problems Medical Problems: (1) Abdominal pain Status: Acute (2) Anemia Status: Acute (3) Hypokalemia Status: Acute (4) Morbid obesity Status: Acute Brief Hospital Course Allergies Allergies Coded Allergies Type Severity Reaction Last Updated Verified Iodinated Contrast- Oral and IV Dye Allergy Intermediate 03/13/18 Yes Latex, Natural Rubber Allergy Intermediate ITCHING/REDNESS 03/13/18 Yes Brief Hospital Course Admitted with abdominal pain, gastroparesis, hypokalemia. Back pain. She claims back pain much better since injections by physiatry Blood sugars are much better with adjustments here throughout her stay has fibromyalgia chronic back pain. still c/o diffuse abd pain, 12/29, eats ok today although told me yesterday has dysphagia GES neg abd pain better with [place]. no bm for 2-3ds after diarrhea resolved, then has one BM yesterday with stool softner EPIGASTRIC PAIN WITH DARK STOOLS - NO MORE RECURRENCE Acute on chronic back pain, s/p injections by physiatry diarrhea with hypokalemia RESOLVED ACUTE ON CHRONIC NAUSEA r/o GASTROPARESIS Diabetes type 2 on insulin-uncontrolled -unknown [id number] Generalized weakness, - has HH and 24/hr care MOrbid Obesity BMI 63 - bariatric bed chronic pain with fibromyalgia plan: fu with dr. Lee, gi GES neg, consider dc reglan if ok with gi on lantus, novolog, ssi ptot on ppi add stool softner. pt c/o dark stool before, neg FOBT. i talked to gi, not much can offer in the hosp, plan to dc , but pt said pain 8/ 10 that improved to 2/10 after BM Discharge Information Condition at Discharge: Improved Follow Up: Weeks (2) Disposition/Orders: D/C to Home w/ HH Scheduled Allopurinol (Allopurinol) 300 Mg Tablet, 1 TAB PO DAILY, #30 Ref 5 (Reported) Entered as Reported by: MARITO LOMAS on 03/13/181548 Last Action: Continued on 03/13/181909 by JEFFERSON VORA MD Amitriptyline Hcl (Amitriptyline Hcl) 75 Mg Tablet, 1 TAB PO QHS, #30 Ref 3 ( Reported) Entered as Reported by: MARITO LOMAS on 03/13/181628 Last Action: Converted on 03/13/181909 by JEFFERSON VORA MD Amlodipine Besylate (Amlodipine Besylate) 10 Mg Tablet, 10 MG PO DAILY, ( Reported) Entered as Reported by: MARITO LOMAS on 03/13/181548 Last Action: Continued on 03/13/181909 by JEFFERSON VORA MD Aspirin (Aspir-Low) 81 Mg Tablet.dr, 1 TAB PO DAILY, #30 Ref 3 (Reported) Entered as Reported by: MARITO LOMAS on 03/13/181628 Last Action: Continued on 03/13/181909 by JEFFERSON VORA MD Bethanechol Chloride (Bethanechol Chloride) 5 Mg Tablet, 5 MG PO TIDBFRMEAL for gastroparesis for 30 Days, #90 Ref 2 Prescribed by: OMERO MOLINA MD on 03/22/18 1513 Carvedilol (Carvedilol) 25 Mg Tablet, 1 TAB PO BID, #180 Ref 1 (Reported) Entered as Reported by: MARITO LOMAS on 03/13/181548 Last Action: Converted on 03/13/181909 by JEFFRESON VORA MD Fluoxetine Hcl (Fluoxetine Hcl) 20 Mg Tablet, 1 TAB PO DAILY, #90 Ref 3 ( Reported) Entered as Reported by: MARITO LOMAS on 03/13/181548 Last Action: Converted on 03/13/181909 by JEFFERSON VORA MD Furosemide (Furosemide) 40 Mg Tablet, 1 TAB PO DAILY, #30 Ref 5 (Reported) Entered as Reported by: MARITO LOMAS on 03/13/181548 Last Action: Continued on 03/13/181909 by JEFFERSON VORA MD Insulin Detemir (Levemir) 100 Unit/1 Ml Vial, 30 UNIT SQ HS, (Reported) Entered as Reported by: MARITO LOMAS on 03/13/181628 Last Action: Converted on 03/13/181909 by JEFFERSON VORA MD Insulin Lispro (Humalog) 100 Unit/1 Ml Insuln.pen, 10 UNIT SQ TIDWMEALS, ( Reported) Entered as Reported by: MARITO LOMAS on 03/13/181548 Last Action: Continued on 03/13/181909 by JEFFERSON VORA MD Magnesium Oxide (Magnesium) 400 Mg Capsule, 1 CAP PO DAILY, #30 Ref 3 (Reported) Entered as Reported by: MARITO LOMAS on 03/13/181628 Last Action: Converted on 03/13/181909 by JEFFERSON VORA MD Potassium Chloride (Potassium Chloride) 20 Meq Tablet.er, 20 MEQ PO DAILY, ( Reported) Entered as Reported by: MARITO LOMAS on 03/13/181628 Last Action: Converted on 03/13/181909 by JEFFERSON VORA MD [Pantoprazole] 40 MG TABLET.DR, 40 MG PO DAILYAC for 30 Days, #30 Ref 2 Prescribed by: OMERO MOLINA MD on 03/22/18 1513 Discontinued Medications Sulfamethoxazole/Trimethoprim (Bactrim Ds Tablet) 1 Each Tablet, 1 TAB PO DAILY , #14 (Reported) Entered as Reported by: MARITO LOMAS on 03/13/18 1549 Last Action: Continued on 03/13/181909 by MD JESSE VARGAS CHRISTOPHER S MD Mar 26, 2018 10:47
== END 2018-03-22 20:30 | disposition home health service (06) | DRG 640 ==
LOC: ER 09:24 → 5 NORTH 14:00
PROVIDERS: ADMIT Family Medicine; ATTEND Family Medicine
DX: E87.6 Hypokalemia (principal); I50.31 Acute diastolic (congestive) heart failure; N39.0 Urinary tract infection, site not specified; M48.50XA Collapsed vertebra, not elsewhere classified, site unspecified, initial encounter for fracture; F11.20 Opioid dependence, uncomplicated; Z68.44 Body mass index [BMI] 60.0-69.9, adult; D63.8 Anemia in other chronic diseases classified elsewhere; I11.0 Hypertensive heart disease with heart failure; E66.01 Morbid (severe) obesity due to excess calories; M79.7 Fibromyalgia; E11.42 Type 2 diabetes mellitus with diabetic polyneuropathy; K21.9 Gastro-esophageal reflux disease without esophagitis; F17.210 Nicotine dependence, cigarettes, uncomplicated; M19.011 Primary osteoarthritis, right shoulder; M19.012 Primary osteoarthritis, left shoulder; M10.9 Gout, unspecified; G89.29 Other chronic pain; K57.30 Diverticulosis of large intestine without perforation or abscess without bleeding; J45.909 Unspecified asthma, uncomplicated; K27.9 Peptic ulcer, site unspecified, unspecified as acute or chronic, without hemorrhage or perforation; M47.816 Spondylosis without myelopathy or radiculopathy, lumbar region; M17.0 Bilateral primary osteoarthritis of knee; N20.0 Calculus of kidney; B96.20 Unspecified Escherichia coli [E. coli] as the cause of diseases classified elsewhere; G47.33 Obstructive sleep apnea (adult) (pediatric); Z90.49 Acquired absence of other specified parts of digestive tract; Z82.49 Family history of ischemic heart disease and other diseases of the circulatory system; Z79.82 Long term (current) use of aspirin; Z83.3 Family history of diabetes mellitus; Z82.3 Family history of stroke; Z98.51 Tubal ligation status; Z90.710 Acquired absence of both cervix and uterus; Z91.040 Latex allergy status; Z79.4 Long term (current) use of insulin; Z83.49 Family history of other endocrine, nutritional and metabolic diseases
CPT/HCPCS: 36415; 36569; 71045; 74176; 76937; 77001; 78264; 80048; 80053; 81001; 82274; 82550; 82553; 82962; 83036; 83540; 83550; 83690; 83735; 83880; 84439; 84443; 84484; 85025; 85610; 85730; 86850; 86900; 86901; 87086; 87186; 87205; 87493; 93005; 93306; 96374; A9541; C1751; C1892; C9113; J0696; J1030; J1815; J2405; J3475; J3480; J3490; J8597; P9612; Q0163; 97110; 99285-25